=== PATIENT | female | born 1995 | race Caucasian/White ===

== ENCOUNTER 2019-05-24 16:42 | Emergency (ER) | payer BC, SELFPAY ==
--- NOTE | ~2019-05-24 | XR_ITS ---
EXAMINATION: XR chest 1V portable DATE: 05/24/2019 17:16 INDICATION: Dyspnea. TECHNIQUE: A single frontal view of the chest was obtained. COMPARISON: Chest 2 views 07/11/2015, CT abdomen and pelvis 10/24/2018 FINDINGS: The chest demonstrates clear lungs without pneumonia, pleural effusion, or pneumothorax. Th e heart size is normal. IMPRESSION: 1. No acute cardiopulmonary disease. Reviewed, dictated and finalized at location A.
[2019-05-24 16:45] VITALS: BP 103/57; PULSE 93; RESP 18; TEMP 36.4; O2SAT 99
[2019-05-24 16:57] VITALS: PULSE 99
--- NOTE | 2019-05-24 17:00 | ED.GENADULT ---
HPI - General Adult General Chief complaint: Unspecified Stated complaint: LIGHTHEADED/7 MO PREG Time Seen by Provider: 05/24/19 16:58 Source: patient Mode of arrival: ambulatory Limitations: no limitations History of Present Illness HPI narrative: A 24 y/o female pt that is 30 weeks , presents to the ED, with c/o constant dizziness, lightheadedness and near-syncope x 5 days. Pt states that she tried to sit it out at home, but her Sx are not improving. She notes that her Sx are worse in the morning and states that she notices her Sx are exacerbated when passing a bowel movement. Pt states that the peak of her lightheadedness is accompanied with SOB, and notes N/V, but she states that she thinks this is d/t acid reflux. She denies decreased food or liquid intake, CP, and fever. Pt states that her OBGYN is in [place], [place], but she is self-quarantining with her daughter near this facility so she decided to come here. complaint: lightheaded/dizziness Onset (ago): day(s) (5) Exacerbating factors: other (when passing a bowel movement) Associated symptoms: nausea/vomiting (acid reflux), shortness of breath and other (dizziness, near-syncope) Related Data Allergies Allergy/AdvReac Type Severity Reaction Status Date / Time Contrast Media AdvReac Unknown N/V Uncoded 05/24/19 17:05 DIAPHORESIS Review of Systems Review of Systems: All systems reviewed & are unremarkable except as noted in HPI and below Constitutional: Constitutional: Denies fever(s) Cardiovascular: Cardiovascular: Denies chest pain Respiratory: Respiratory: Reports dyspnea (with lightheadedness) Gastrointestinal: Gastrointestinal: Reports nausea, Reports vomiting (acid reflux) and Denies other (decreased food or liquid intake) Neurologic: Reports dizziness and Reports other (lightheadedness, near-syncope) [facility] Past Medical History Medical History (Updated 05/24/19 @ 19:26 by Trenton Oruorke DO) Heart murmur Hx of tonsillitis Neck fracture Von Willebrand disease Surgical History Surgical History (Updated 05/24/19 @ 18:08 by JOSSELYN Torres) History of partial thyroidectomy History of tonsillectomy Hx of cholecystectomy Social History Social History (Updated 05/24/19 @ 18:09 by [facility] Smoking status: Never smoker Gender identity (if verbalized by the patient): Female Exam Narrative: Exam Narrative: APPEARANCE: No acute distress, nontoxic, resting in bed EYES: EOMI HEENT: Normocephalic, atraumatic, nares patent, oral mucosa dry no erythema exudate posterior pharynx RESPIRATORY: No respiratory distress Clear to auscultation bilaterally with no rhonchi wheezing or rales. CARDIOVASCULAR: Regular rate and rhythm without murmurs rubs or gallops. ABDOMINAL: Gravid uterus palpated, nontender to palpation MUSCULOSKELETAl: Moves all extremities. No clubbing, cyanosis or edema. NEURO: Awake and alert x 3. Following commands, speech normal, no focal deficits SKIN:: Warm, dry. No rashes lesions or abrasions PSYCHIATRIC: Normal affect/mood, Course Course Emergency Course: Following liter fluid patient states she is feeling much better. Able to get up and ambulate with no difficulty Discussed with patient results of workup and diagnosis. Discussed need for follow-up with primary care, proper use of medication, and reasons to return to the emergency department. Patient understands and agrees to current treatment plan Vital Signs Vital signs: Vital Signs Temperature 97.5 F L 05/24/19 16:45 Pulse Rate 93 05/24/19 16:45 Respiratory Rate 18 05/24/19 16:45 Blood Pressure 103/57 L 05/24/19 16:45 Pulse Oximetry 99 05/24/19 16:45 Temperature 97.5 F L 05/24/19 16:45 Pulse Rate 96 05/24/19 17:23 Respiratory Rate 18 05/24/19 16:45 Blood Pressure 106/63 05/24/19 17:23 Pulse Oximetry 99 05/24/19 16:45 Medical Decision Making MDM Narrative Medical decision making narrative: Patient's epis
--- NOTE | 2019-05-24 17:04 | ECG_ITS ---
Measurements Intervals [place] Rate: 82 P: 3 CA: 142 QRS: 7 QRSD: 80 T: 24 QT: 346 QTc: 406 Interpretive Statements SINUS RHYTHM MINIMAL Q WAVES- LATERAL LEADS BORDERLINE ECG Electronically Signed On 05-25-2019 7:17:00 CDT by Srini Acosta D.O.
[2019-05-24] MEDS: SODIUM CHLORIDE 0.9% IV 1,000 ML 999 ML IV CONT (17:16)
[2019-05-24 17:20] LABS: Basophils Absolute Auto 0.1 K/mm3 (0.0-0.1); Basophils Percent Auto 0.5 % (0.2-1.2); Eosinophils Absolute Auto 0.2 K/mm3 (0-0.3); Eosinophils Percent Auto 1.4 % (0-4.4); Hematocrit 35.6 % (37.0-47.0); Hemoglobin 11.4 g/dL (12.0-15.0); Immature Granulocyte Absolute 0.25 K/mm3 (0.00-0.031); Immature Granulocyte Percent A 2.3 % (0-0.5); Lymphocytes Absolute Auto 1.71 K/mm3 (0.9-3.2); Lymphocytes Percent Auto 15.5 % (18.3-44.2); Mean Corpuscular Volume 93.7 fl (80-100); Mean Platelet Volume 11.4 fl (7.4-10.4); Monocytes Absolute Auto 1.2 K/mm3 (0.1-0.6); Monocytes Percent Auto 11.2 % (2.6-8.5); Neutrophils Absolute Auto 7.6 K/mm3 (1.3-6.7); Neutrophils Percent Auto 69.1 % (45.5-73.1); Platelet Count Result 217 k/mm3 (150-375); Red Cell Distribution Width 13.1 % (11.5-14.5)
[2019-05-24 17:21] VITALS: BP 104/67; BP 108/70; PULSE 83; PULSE 98
[2019-05-24 17:23] VITALS: BP 106/63; PULSE 96
[2019-05-24 17:31] LABS: Alanine Aminotransferase 22 U/L (4-35); Albumin Level 3.9 g/dL (3.5-5.1); Alkaline Phosphatase 112 U/L (38-126); Aspartate Amino Transferase 24 U/L (14-36); Bilirubin,Total 0.2 mg/dL (0.2-1.3); Blood Urea Nitrogen 8 mg/dL (7-17); Calcium 9.3 mg/dL (8.4-10.2); Carbon Dioxide 22 mmol/L (22-30); Chloride 102 mmol/L (98-107); Estimated CRCL calculation 168 ml/min; Estimated Glomerular Filt Rate > 60; Glucose 79 mg/dL (65-105); Potassium 4.1 mmol/L (3.4-5.0); Sodium 132 mmol/L (137-145)
[2019-05-24 18:00] LABS: Add Urine Microscopic? YES; Appearance Urine Cloudy (Clear); Bacteria Urine 1+ /hpf; Bilirubin Urine Negative (Negative); Blood Urine Negative (Negative); Color Urine Yellow (Yellow); Glucose Urine UA Negative (Negative); Ketones Urine Negative (Negative); Leukocyte Esterase Ur Negative LEU/UL (Negative); Mucus Urine Rare /lpf; Nitrate Urine Negative (Negative); Protein Urine 1+ mg/dL (Negative); RBC Urine 0-2 /hpf (0-2); Specific Grav Ur 1.015 (1.001-1.035); Squamous Epithelial Cell Urine Few /hpf (Few); Urobilinogen Urine Negative mg/dL (<2.0)
[2019-05-24] MEDS: CEPHALEXIN 500 MG CAPSULE PO (19:37)
== END 2019-05-24 19:38 | disposition home or self-care (01) ==
PROVIDERS: Emergency Provider Emergency Medicine; PCP Family Medicine
DX: O23.43 Unspecified infection of urinary tract in pregnancy, third trimester (principal); Z3A.30 30 weeks gestation of pregnancy; O26.893 Other specified pregnancy related conditions, third trimester; R42 Dizziness and giddiness; O99.283 Endocrine, nutritional and metabolic diseases complicating pregnancy, third trimester; E89.0 Postprocedural hypothyroidism; R94.31 Abnormal electrocardiogram [ECG] [EKG]; O99.113 Other diseases of the blood and blood-forming organs and certain disorders involving the immune mechanism complicating pregnancy, third trimester; D68.0 Von Willebrand disease
CPT/HCPCS: 36415; 71045; 80053; 81001; 85025; 93005; 96360; 96361; 99283; A9270; J7030

== ENCOUNTER 2019-07-15 20:18 | Inpatient (IN) | payer BC, SELFPAY ==
[2019-07-15] VITALS (13 sets, daily range): BP systolic 98–136; BP diastolic 55–87; PULSE 72–103
[2019-07-15 22:24] LABS: Basophils Absolute Auto 0.1 K/mm3 (0.0-0.1); Basophils Percent Auto 0.6 % (0.2-1.2); Eosinophils Absolute Auto 0.2 K/mm3 (0-0.3); Eosinophils Percent Auto 1.7 % (0-4.4); Hematocrit 37.5 % (37.0-47.0); Hemoglobin 12.2 g/dL (12.0-15.0); Immature Granulocyte Absolute 0.33 K/mm3 (0.00-0.031); Immature Granulocyte Percent A 2.7 % (0-0.5); Lymphocytes Absolute Auto 2.84 K/mm3 (0.9-3.2); Lymphocytes Percent Auto 23.2 % (18.3-44.2); Mean Corpuscular HGB Conc 32.5 g/dl (32-36); Mean Corpuscular Hemoglobin 28.8 pg (26-34); Mean Corpuscular Volume 88.4 fl (80-100); Mean Platelet Volume 12.3 fl (7.4-10.4); Monocytes Absolute Auto 1.1 K/mm3 (0.1-0.6); Neutrophils Absolute Auto 7.7 K/mm3 (1.3-6.7); Neutrophils Percent Auto 62.8 % (45.5-73.1); Platelet Count Result 222 k/mm3 (150-375); Red Blood Count 4.24 M/mm3 (4.2-5.4); Red Cell Distribution Width 13.2 % (11.5-14.5); White Blood Count 12.3 K/mm3 (4.5-10.0)
[2019-07-15] MEDS: FAMOTIDINE 20 MG/2 ML VIAL IV PUSH (22:53)
[2019-07-15 23:17] LABS: HIV 1/2 Ab P24 Ag Result Negative (Negative)
[2019-07-15 23:23] LABS: Hepatitis B Surface Antigen Negative (Negative)
[2019-07-15 23:26] LABS: Rubella IgG Antibody 16.5 IU/ML
[2019-07-15 23:33] LABS: Amphetamine Screen Urine Negative (Negative); Barbiturate Screen Urine Negative (Negative); Benzodiazepines Screen Urine Negative (Negative); Cannabinoid Screen Urine Negative (Negative); Cocaine Screen Urine Negative (Negative); Methadone Screen Urine Negative (Negative); Opiate Screen Urine Negative (Negative); Phencyclidine Screen Urine Negative (Negative)
[2019-07-16] VITALS (60 sets, daily range): BP systolic 76–144; BP diastolic 48–106; PULSE 55–106; RESP 16–18; TEMP 36.2–36.9; O2SAT 98–100; BMI 26.9
--- NOTE | 2019-07-16 01:34 | LDADM ---
This patient, Leah Antunez, was admitted to Labor/Delivery/Recovery 109 on 07/15/19 at 20:18. Plans for labor, pain management and were discussed with patient. Patient/family oriented to hospital policies and general routines including ID bracelet, bed and alarms, visiting hours, pain management, procedures, bathroom and other care routines, personal items, smoking policy, room service/diet and guest tray routines, security routines, and visiting hours. Patient/Family are encouraged to report perceived risks to care and to ask questions if they do not understand what they are told or what they should do. See OBIX for further documentation.
[2019-07-16 06:43] LABS: Rapid Plasma Reagin Non-Reactive (NonReactive)
--- NOTE | 2019-07-16 10:55 | WPDANESEPP ---
Anes - Eval Pre Procedure Procedure: Labor epidural Date/Time: 07/16/19 10:55 Surgeon: Lanre Sanchez M.D. Preop Diagnosis: pain during labor Pre Op Diagnosis: Leaking Patient Data Age: 24 Gender: F Height: 1.68 m Weight: 75.75 kg Last Vital Signs Temp 36.2 C L 07/16/19 09:25 Pulse 74 07/16/19 10:01 BP 118/84 07/16/19 10:15 Allergies Allergy/AdvReac Type Severity Reaction Status Date / Time Contrast Media AdvReac Unknown N/V Uncoded 05/24/19 17:05 DIAPHORESIS Home Medications Medication Instructions Recorded Confirmed Type cephalexin [Keflex] 500 mg PO TID #21 cap 05/24/19 Rx Laboratory Tests 07/15/19 07/15/19 07/15/19 22:10 22:10 22:10 WBC 12.3 K/mm3 H K/mm3 (4.5-10.0) RBC 4.24 M/mm3 M/mm3 (4.2-5.4) Hgb 12.2 g/dL g/dL (12.0-15.0) Hct 37.5 % % (37.0-47.0) MCV 88.4 fl fl (80-100) MCH 28.8 pg pg (26-34) MCHC 32.5 g/dl g/dl (32-36) RDW 13.2 % % (11.5-14.5) Plt Count 222 k/mm3 k/mm3 (150-375) MPV 12.3 fl H fl (7.4-10.4) Immature Gran % (Auto) 2.7 % H % (0-0.5) Neut % (Auto) 62.8 % % (45.5-73.1) Lymph % (Auto) 23.2 % % (18.3-44.2) [place] % (Auto) 9.0 % H % (2.6-8.5) Eos % (Auto) 1.7 % % (0-4.4) Baso % (Auto) 0.6 % % (0.2-1.2) Lymph # (Auto) 2.84 K/mm3 K/mm3 (0.9-3.2) [place] # (Auto) 1.1 K/mm3 H K/mm3 (0.1-0.6) Eos # (Auto) 0.2 K/mm3 K/mm3 (0-0.3) Baso # (Auto) 0.1 K/mm3 K/mm3 (0.0-0.1) Abs Immat Gran (auto) 0.33 K/mm3 H K/mm3 (0.00-0.031) Absolute Neuts (auto) 7.7 K/mm3 H K/mm3 (1.3-6.7) Absolute Nucleated RBC 0.0 K/mm3 K/mm3 (0.0-0.012) Nucleated RBC % 0.0 % % (0.0-0.2) Urine Opiates Screen Urine Methadone Screen Ur Barbiturates Screen Ur Phencyclidine Scrn Ur Amphetamine Screen U Benzodiazepines Scrn Urine Cocaine Screen U Cannabinoids Screen RPR Hep Bs Antigen HIV 1&2 Ab/P24 Ag 4thGn Negative (Negative) Rubella IgG Antibody 16.5 IU/ML IU/ML (10 - ) Blood Type Antibody Screen 07/15/19 07/15/19 07/15/19 22:10 22:10 22:10 WBC RBC Hgb Hct MCV MCH MCHC RDW Plt Count MPV Immature Gran % (Auto) Neut % (Auto) Lymph % (Auto) [place] % (Auto) Eos % (Auto) Baso % (Auto) Lymph # (Auto) [place] # (Auto) Eos # (Auto) Baso # (Auto) Abs Immat Gran (auto) Absolute Neuts (auto) Absolute Nucleated RBC Nucleated RBC % Urine Opiates Screen Urine Methadone Screen Ur Barbiturates Screen Ur Phencyclidine Scrn Ur Amphetamine Screen U Benzodiazepines Scrn Urine Cocaine Screen U Cannabinoids Screen RPR Non-reactive (NonReactive) Hep Bs Antigen Negative (Negative) HIV 1&2 Ab/P24 Ag 4thGn Rubella IgG Antibody Blood Type O Positive Antibody Screen Negative 07/15/19 22:52 WBC RBC Hgb Hct MCV MCH MCHC RDW Plt Count MPV Immature Gran % (Auto) Neut % (Auto) Lymph % (Auto) [place] % (Auto) Eos % (Auto) Baso % (Auto) Lymph # (Auto) [place] # (Auto) Eos # (Auto) Baso # (Auto) Abs Immat Gran (auto) Absolute Neuts (auto) Absolute Nucleated RBC Nucleated RBC %
[2019-07-16] MEDS: IBUPROFEN 600 MG TABLET PO ×2 (11:15→19:53)
[2019-07-16] MEDS: OXYTOCIN 30 UNITS/NS 500 ML 30 UNITS/500 ML BAG 125 UNITS IV CONT (12:00)
--- NOTE | 2019-07-16 14:18 | PC.NURSE ---
Patient transferred to post room #278 via wheelchair. Support person present. Oriented to unit, room, information board, rooming in, admission packet and security measures. Patient verbalizes understanding.
--- NOTE | 2019-07-16 15:13 | PM.IMHP ---
H&P: HPI History of Present Illness Chief complaint: Leaking Narrative: Leah Antunez is a 24 year old female at 37 6/7 weeks by LMP 10/23/18 with an EDC 07/30/19- record stated confirmed by early ultrasound. She presented to [facility] after having leaking of clear fluid at 1999. Cervix 2/80%, irregular contractions. She has her primary care with [facility]. She did not want to deliver at that practice's hospital. course significant for her having a history of a heart defect. She had a echo and they recommend no further evaluation during . Recommend evaluation several months after delivery. History of depression. There is a questionable history of Von Willebrands as a child but states later test show negative. No history of hemorrhage. Labs reviewed. GBS negative. Review of Systems Review of Systems: All systems reviewed & are unremarkable except as noted in HPI and below Constitutional: Constitutional: Reports no additional constitutional complaints and Denies headache(s) Eyes: Eyes: Denies spots in vision ENT: Reports system reviewed and no additional complaints, except as documented and Denies headache(s) Cardiovascular: Cardiovascular: Denies chest pain and Denies dyspnea Respiratory: Respiratory: Denies dyspnea Gastrointestinal: Gastrointestinal: Reports no additional gastrointestinal complaints Genitourinary: Genitourinary: Reports amenorrhea Musculoskeletal: Musculoskeletal: Reports no additional musculoskeletal complaints Neurologic: Denies headache(s) [facility] Past Medical History Medical History Heart murmur Hx of tonsillitis Neck fracture Von Willebrand disease Surgical History Surgical History History of partial thyroidectomy History of tonsillectomy Hx of cholecystectomy Family History Family History Grandparent Lung cancer Mother Breast cancer Other Uterine cancer Grandparent Dementia Social History Social History Smoking status: Never smoker Second hand tobacco smoke exposure: No Substance use: never Gender identity (if verbalized by the patient): Female Spiritual care concerns: No Meds Home Medications and Allergies Home Medications Medication Instructions Recorded Confirmed Type cephalexin [Keflex] 500 mg PO TID #21 cap 05/24/19 Rx Allergies Allergy/AdvReac Type Severity Reaction Status Date / Time Contrast Media AdvReac Unknown N/V Uncoded 05/24/19 17:05 DIAPHORESIS Vital Signs Vital Signs - 24 hr 07/15/19 20:50 07/15/19 21:00 07/15/19 21:15 Temperature Pulse Rate 90 85 78 Respiratory Rate Blood Pressure 131/75 123/79 127/77 Pulse Oximetry 07/15/19 21:30 07/15/19 21:45 07/15/19 22:15 Temperature Pulse Rate 92 91 88 Respiratory Rate Blood Pressure 128/76 127/79 130/72 Pulse Oximetry 07/15/19 22:30 07/15/19 22:46 07/15/19 23:00 Temperature Pulse Rate 92 90 103 H Respiratory Rate Blood Pressure 136/87 104/60 119/69 Pulse Oximetry 07/15/19 23:14 07/15/19 23:16 07/15/19 23:30 Temperature Pulse Rate 82 96 80 Respiratory Rate Blood Pressure 116/77 117/75 119/72 Pulse Oximetry 07/15/19 23:47 07/16/19 00:00 07/16/19 00:22 Temperature Pulse Rate 72 83 89 Respiratory Rate Blood Pressure 98/55 L 117/79 123/78 Pulse Oximetry 07/16/19 00:31 07/16/19 00:45 07/16/19 01:19 Temperature 98.2 F Pulse Rate 91 86 81 Respiratory Rate Blood Pressure 117/95 H 144/105 H 114/67 Pulse Oximetry 07/16/19 01:30 07/16/19 01:45 07/16/19 02:00 Temperature Pulse Rate 71 82 76 Respiratory Rate Blood Pressure 105/70 115/71 118/68 Pulse Oximetry 07/16/19 02:16 07/16/19 02:30 07/16/19 02:45 Temperature Puls
--- NOTE | 2019-07-16 15:56 | PM.OBPNVD ---
OB - PN: Subj Subjective Date/time seen: 07/16/19 15:56 Patient seen at approximately 0830. tracing Cat 1. Irregular ctx. Cervix , forebag palpated and ruptured. Continue expectant management. OB - PN: Obj Data Labs CBC & Chem 7: 07/15/19 22:10 Labs: Laboratory Results - last 24 hr 07/15/19 07/15/19 07/15/19 22:10 22:10 22:10 WBC 12.3 H RBC 4.24 Hgb 12.2 Hct 37.5 MCV 88.4 MCH 28.8 MCHC 32.5 RDW 13.2 Plt Count 222 MPV 12.3 H Immature Gran % (Auto) 2.7 H Neut % (Auto) 62.8 Lymph % (Auto) 23.2 [place] % (Auto) 9.0 H Eos % (Auto) 1.7 Baso % (Auto) 0.6 Lymph # (Auto) 2.84 [place] # (Auto) 1.1 H Eos # (Auto) 0.2 Baso # (Auto) 0.1 Abs Immat Gran (auto) 0.33 H Absolute Neuts (auto) 7.7 H Absolute Nucleated RBC 0.0 Nucleated RBC % 0.0 Urine Opiates Screen Urine Methadone Screen Ur Barbiturates Screen Ur Phencyclidine Scrn Ur Amphetamine Screen U Benzodiazepines Scrn Urine Cocaine Screen U Cannabinoids Screen RPR Hep Bs Antigen HIV 1&2 Ab/P24 Ag 4thGn Negative Rubella IgG Antibody 16.5 Blood Type Antibody Screen 07/15/19 07/15/19 07/15/19 22:10 22:10 22:10 WBC RBC Hgb Hct MCV MCH MCHC RDW Plt Count MPV Immature Gran % (Auto) Neut % (Auto) Lymph % (Auto) [place] % (Auto) Eos % (Auto) Baso % (Auto) Lymph # (Auto) [place] # (Auto) Eos # (Auto) Baso # (Auto) Abs Immat Gran (auto) Absolute Neuts (auto) Absolute Nucleated RBC Nucleated RBC % Urine Opiates Screen Urine Methadone Screen Ur Barbiturates Screen Ur Phencyclidine Scrn Ur Amphetamine Screen U Benzodiazepines Scrn Urine Cocaine Screen U Cannabinoids Screen RPR Non-reactive Hep Bs Antigen Negative HIV 1&2 Ab/P24 Ag 4thGn Rubella IgG Antibody Blood Type O Positive Antibody Screen Negative 07/15/19 22:52 WBC RBC Hgb Hct MCV MCH MCHC RDW Plt Count MPV Immature Gran % (Auto) Neut % (Auto) Lymph % (Auto) [place] % (Auto) Eos % (Auto) Baso % (Auto) Lymph # (Auto) [place] # (Auto) Eos # (Auto) Baso # (Auto) Abs Immat Gran (auto) Absolute Neuts (auto) Absolute Nucleated RBC Nucleated RBC % Urine Opiates Screen Negative Urine Methadone Screen Negative Ur Barbiturates Screen Negative Ur Phencyclidine Scrn Negative Ur Amphetamine Screen Negative U Benzodiazepines Scrn Negative Urine Cocaine Screen Negative U Cannabinoids Screen Negative RPR Hep Bs Antigen HIV 1&2 Ab/P24 Ag 4thGn Rubella IgG Antibody Blood Type Antibody Screen OB - PN A/P Time Spent With Patient Time: Total time spent is greater than 50% in coordination of care (as documented) at patient's floor/unit and/or counseling patient:
--- NOTE | 2019-07-16 15:58 | PM.OBPRVD ---
OB - Delivery Note Procedure Delivery date: 07/16/19 Procedure: Spontaneous vaginal delivery Intrapartal events: None Induction method: none Delivery augmentation: rupture of membranes (forebag ruptured) Delivery monitor: external FHT Route of delivery: Laceration description: None Specimen: No Estimated blood loss (mL): 150 Disposition: floor Complications: None Narrative: Patient admitted on evening of 07/14 with confirmed spontaneous rupture of membranes. She opted to walk and intermittent monitoring. At 0640 she was 5 cm. Irregular contractions. She had exam at approximately 0830, forebag palpated and ruptured- large amount of clear fluid. Cervix 6/90/0. She progressed to complete. She pushed twice and delivered a male infant over an intact perineum. Infant was vigorously crying upon delivery and placed on maternal abdomen. Cord clamped and cut after apulsative at 30 seconds after delivery. Cord blood obtained for gases and cord blood. Placenta delivered spontaneous and intact. EBL 150cc. Patient tolerated procedure well. [place] Baby Date of : 07/16/19 Time of : 10:57 Weeks of gestation at delivery: 38 Infant gender: Male Weight (pounds): 6 Weight (ounces): 14 presentation: vertex position: Right Occiput Anterior Placenta delivery description: Spontaneous cord vessel description: Clamped/Cut score one minute: 9 score five minutes: 9
[2019-07-16] MEDS: LANOLIN (LANSINOH) 7.5 GM CREAM 1 APPLIC TOPICAL (16:04)
[2019-07-16] MEDS: DOCUSATE SODIUM 100 MG CAPSULE PO (16:04)
[2019-07-16] MEDS: ACETAMINOPHEN 325 MG TABLET 650 MG PO (19:52)
[2019-07-17] MEDS: ACETAMINOPHEN 325 MG TABLET 650 MG PO ×3 (02:08→16:53)
[2019-07-17] MEDS: IBUPROFEN 600 MG TABLET PO ×4 (02:09→23:13)
[2019-07-17] MEDS: SIMETHICONE 80 MG TAB.CHEW PO (05:00)
[2019-07-17 05:32] LABS: Hematocrit 29.3 % (37.0-47.0); Hemoglobin 9.4 g/dL (12.0-15.0)
[2019-07-17] MEDS: POLYSACCHARIDE IRON COMPLEX 150 MG CAPSULE PO ×2 (07:25→16:53)
[2019-07-17] MEDS: DOCUSATE SODIUM 100 MG CAPSULE PO ×2 (07:25→16:53)
[2019-07-17] MEDS: MULTIVIT/MIN/PREN/FOL AC/IRON TABLET 1 TAB PO (07:25)
[2019-07-17 07:35] VITALS: BP 103/68; PULSE 71; RESP 18; TEMP 36.4; O2SAT 99
--- NOTE | 2019-07-17 09:14 | PM.OBPNVD ---
OB - PN: Subj Subjective Date/time seen: 07/17/19 09:14 Patient comments: pain well controlled, tolerating diet and other (Decreasing lochia.) baby status: doing well and nursing well [place] feeding status: exclusively breast feeding OB - PN: Obj Data Labs CBC & Chem 7: 07/17/19 05:10 Labs: Laboratory Results - last 24 hr 07/17/19 05:10 Hgb 9.4 L Hct 29.3 L OB - PN A/P Plan day: 1 Plan: routine care Comments: Patient doing well. Asymptomatic anemia. Routine care. Time Spent With Patient Time: Total time spent is greater than 50% in coordination of care (as documented) at patient's floor/unit and/or counseling patient: Exam Psych: Affect: normal affect Other: Abd: fundus firm below umbilicus, nontender Perineum: healing Ext: nontender
--- NOTE | 2019-07-17 15:55 | PC.NURSE ---
Mother called out for assist with feeding. Reviewed feeding cues, frequencies, duration of feedings, feeding elimination flow sheet, and signs of adequate intake. Demonstrated stimulation techniques to wake infant for feeding. Assisted with to breast. Reviewed positioning/alignment in cross cradle, holding breast in U hold and guided asymmetrical latch on. Discussed rational for each. Infant was able to latch correctly. nursed eagerly, with steady draws and frequent swallowing noted. Reviewed signs of a correct latch, effective nursing and suck swallow ratio. Infant was able to maintain latch without discomfort to mother. Nipple care reviewed. Mother switched to cradle, was able to maintain deep latch. Discussed how holding breast assist with maintaining deep latch. Advised to stimulate to keep awake and nursing effectively for increased stimulation and intake. Instructed mother to call out for RN assistance if she is unable to latch infant for feeding or she has discomfort with nursing. Instructed feeding should be initiated three hours from start of last feeding or if feeding cues are noted before. Mother voiced understanding of information shared.
[2019-07-17 20:00] VITALS: BP 117/66; PULSE 84; RESP 18; TEMP 36.8; O2SAT 100
--- NOTE | 2019-07-17 21:33 | PC.NURSE ---
Patient called out for pain medication for cramping but its too early for pain medication, I offered her a heating pad and she said yes she would like to have one. Heating pad given.
[2019-07-18] MEDS: ACETAMINOPHEN 325 MG TABLET 650 MG PO (01:15)
[2019-07-18] MEDS: IBUPROFEN 600 MG TABLET PO (07:59)
[2019-07-18] MEDS: DOCUSATE SODIUM 100 MG CAPSULE PO (07:59)
[2019-07-18 08:00] VITALS: BP 104/60; PULSE 79; RESP 18; TEMP 36.6
[2019-07-18] MEDS: POLYSACCHARIDE IRON COMPLEX 150 MG CAPSULE PO (08:00)
[2019-07-18] MEDS: MULTIVIT/MIN/PREN/FOL AC/IRON TABLET 1 TAB PO (08:00)
--- NOTE | 2019-07-18 10:35 | P.PNOB_ITS ---
OB - PN: Subj Subjective Date/time seen: 07/18/19 10:35 Patient comments: pain well controlled, tolerating diet and other (Decreasing lochia.) baby status: doing well and nursing well [place] feeding status: exclusively breast feeding OB - PN: Obj Data Labs CBC & Chem 7: 07/17/19 05:10 OB - PN A/P Plan day: 2 Plan: discharge home and other Comments: Patient doing well. Follow up 4-6 weeks. Discharge instructions provided. Time Spent With Patient Time: Total time spent is greater than 50% in coordination of care (as documented) at patient's floor/unit and/or counseling patient: Time with patient: less than 15 minutes Exam Psych: Affect: normal affect Other: Abd: fundus firm below umbilicus, nontender Perineum: healing Ext: nontender
--- NOTE | 2019-07-18 11:05 | PC.NURSE ---
Patient was given the opportunity to view the discharge video Mother & Baby Care, The First Two Weeks and to ask questions. Patient declined viewing the video and has been given the mother/baby guide for home reference.
--- NOTE | 2019-07-31 12:51 | PM.OBDSVD ---
DS: Admitting Diagnosis Admitting Diagnosis Admitting Diagnosis: Encounter for supervision of normal , unspecified, third trimester DS: Discharge Diagnosis Discharge Diagnosis (1) Labor without complication: Code(s): O80 - Encounter for full-term uncomplicated delivery Status: Acute OB - DS: Summary OB Procedures : None OB Procedures Intrapartum: Spontaneous Vag Delivery OB Procedures: : None Time Spent with Patient Time attestation: Total time spent providing and/or coordinating discharge services: Exam Psych: Affect: normal affect Other: Abd: fundus firm below umbilicus, nontender Perineum: healing Ext: nontender Discharge Plan Discharge Attending physician on discharge: Lanre Sanchez Discharging Clinician: Lanre Sanchez Anticipated Discharge Date/Time: 07/18/19 10:37 Patient Disposition: Home, Self-Care Activity: may shower and pelvic rest Diet: regular Discharge Instructions: Routine instructions. Pelvic rest for 4-6 weeks. Call OB for temperature >100.4, saturating more than a pad an hour, leg pain and redness. May take over the counter Ibuprofen and Motrin for pain. Take a daily vitamin. Take a daily iron supplement. Over the counter SloFe once a day. Education: Mom and Baby Guide and Preeclampsia Handout Given to: Mother Follow-Up: Call your delivering provider's office for an appointment to be seen in: 4-6 weeks Mom and baby should come to the [facility] for the follow-up appointment. Appointment Date/Time: July 20, 2019 at 9:00 am What to expect at your follow-up visit: Physical Assessment Call [phone] if you are unable to keep your appointment time. BREAST CARE: 1. Wear a snug supportive bra. 2. For engorgement discomfort: Breast Feeding: A. Apply warm moist washcloths B. Express milk as needed to relieve engorgement C. Wear loose clothing 3. For sore nipples: A. Identify correct latch-on B. Apply warm moist washcloths before and after nursing C. Air dry nipples after nursing D. May apply Lansinoh cream to nipples EPISIOTOMY/PERINEAL CARE: 1. Until bleeding stops, use your carlos eduardo bottle after urinating 2. Change your pad frequently throughout the day 3. You may take sitz baths several times a day (fill your bathtub with warm water and soak for 20 minutes.) Do NOT bathe in the water 4. No tub baths until seen by your physician - You may shower ACTIVITY: 1. Rest as much as possible. 2. Do not exercise or lift anything heavier than your baby (such as laundry or other children.) 3. Avoid stairs or driving as much as possible. 4. Do not put anything into the vagina. No douching, tampons, or sexual activity until seen by physician. NOTIFY PHYSICIAN IF YOU HAVE ANY QUESTIONS OR IF ANY OF THE FOLLOWING SYMPTOMS OCCUR: 1. If your vaginal bleeding becomes foul smelling. 2. If your vaginal bleeding becomes more heavy than a period or if your bleeding changes from pink to bright red. However, you may pass an occasional walnut-sized clot once or twice for the first week . 3. If you experience a sharp, shooting pain in you calves. 4. If you discover a hard, reddened area on your breast or if you experience flu-like symptoms. DIET: 1. Eat regular, well-balanced meals. 2. Drink plenty of fluids daily. If , drink to thirst. Stand Alone Forms: General Discharge Information Follow-up/Referrals: Lanre Sanchez MD [Physician] - (She should call her primary OB and schedule her visit.) Discharge Medications: Discontinued cephalexin [Keflex] 500 mg capsule 500 mg PO TID Qty: 21 RF: 0 Date of admission: 07/15/19 20:18 Primary Care Provider: Demi Castañeda Admitting Provider: Lanre Sanchez Discharge Date/Time: 07/18/19 11:36 Attending physician on admissi
== END 2019-07-18 11:36 | disposition home or self-care (01) | DRG 560 ==
LOC: ANHLDR 22:42 → ANHOB2 07-16 14:29
PROVIDERS: Admitting Provider Obstetrics & Gynecology; PCP Family Medicine; Visit Provider Obstetrics & Gynecology
DX: O80 Encounter for full-term uncomplicated delivery (principal); Z3A.38 38 weeks gestation of pregnancy; Z37.0 Single live birth; Z86.79 Personal history of other diseases of the circulatory system
CPT/HCPCS: 36415; 80307; 85014; 85018; 85025; 86592; 86703; 86762; 86850; 86900; 86901; 87340; A9270; G0432; J2590; J3010

== ENCOUNTER 2020-01-05 22:48 | Emergency (ER) | payer BC, SELFPAY ==
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
[2020-01-05 23:20] VITALS: BP 111/74; PULSE 68; RESP 18; TEMP 36.2; O2SAT 99
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
[2020-01-06] MEDS: IBUPROFEN 600 MG TABLET PO (00:32)
--- NOTE | 2020-01-06 00:34 | PC.NURSE ---
C Collar removed per EDP.
[2020-01-06 00:47] VITALS: BP 114/76; PULSE 100; RESP 17; O2SAT 100
== END 2020-01-06 01:17 | disposition home or self-care (01) ==
PROVIDERS: Emergency Provider Emergency Medicine; PCP Family Medicine
DX: S16.1XXA Strain of muscle, fascia and tendon at neck level, initial encounter (principal); V44.5XXA Car driver injured in collision with heavy transport vehicle or bus in traffic accident, initial encounter
CPT/HCPCS: 71046; 72125; 99284; A9270

== ENCOUNTER 2021-05-06 13:03 | Emergency (ER) | payer BC, SELFPAY ==
--- NOTE | ~2021-05-06 | CT_ITS ---
EXAMINATION: CT abdomen pelvis wo con DATE: 05/06/2021 14:13 INDICATION: Low abdominal pain. TECHNIQUE: Computed tomography (CT) of the abdomen and pelvis was performed without intravenous contr ast. Automated exposure control and iterative reconstruction technique were employed. The dose-length product was 403.13 mGy-cm. COMPARISON: CT abdomen and pelvis 10/24/2018 FINDINGS: The visualized portions of the lung bases are clear without pneumonia or pleural effusion. The heart size is normal. No pericardial effusion. There is a moderate-sized sliding hiatal hernia. T he liver and gallbladder are normal. There are changes of cholecystectomy. The pancreas, adrenal glan ds, and kidneys are normal. There is no urolithiasis. There are no dilated loops of bowel. The append ix is normal. There are no pathologically enlarged lymph nodes. There is no free intraperitoneal flui d. There is mild chronic anterior wedging of T10 and T11 vertebral bodies, likely physiologic. IMPRESSION: 1. Moderate-sized sliding hiatal hernia. Reviewed, dictated and finalized at location [facility]. 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
[2021-05-06 13:06] VITALS: BP 118/66; PULSE 82; RESP 17; TEMP 36.6; O2SAT 99
[2021-05-06 13:22] LABS: Basophils Absolute Auto 0.1 K/mm3 (0.0-0.1); Basophils Percent Auto 0.6 % (0.2-1.2); Eosinophils Absolute Auto 0.1 K/mm3 (0-0.3); Eosinophils Percent Auto 1.2 % (0-4.4); Hematocrit 45.7 % (37.0-47.0); Hemoglobin 14.4 g/dL (12.0-15.0); Immature Granulocyte Absolute 0.03 K/mm3 (0.00-0.031); Immature Granulocyte Percent A 0.4 % (0-0.5); Lymphocytes Absolute Auto 2.05 K/mm3 (0.9-3.2); Lymphocytes Percent Auto 26.2 % (18.3-44.2); Mean Corpuscular HGB Conc 31.5 g/dl (32-36); Mean Corpuscular Hemoglobin 29.5 pg (26-34); Mean Corpuscular Volume 93.6 fl (80-100); Mean Platelet Volume 10.2 fl (7.4-10.4); Monocytes Absolute Auto 0.6 K/mm3 (0.1-0.6); Monocytes Percent Auto 7.5 % (2.6-8.5); Neutrophils Percent Auto 64.1 % (45.5-73.1); Platelet Count Result 377 k/mm3 (150-375); Red Blood Count 4.88 M/mm3 (4.2-5.4); Red Cell Distribution Width 13.8 % (11.5-14.5); White Blood Count 7.8 K/mm3 (4.5-10.0)
--- NOTE | 2021-05-06 13:23 | ED.ABDPAIN ---
HPI - Abdominal Pain General Chief Complaint: Abdominal Pain Stated Complaint: abdominal pain Time Seen by Provider: 05/06/21 13:21 Related Data Allergies Allergy/AdvReac Type Severity Reaction Status Date / Time Contrast Media AdvReac Unknown N/V Uncoded 05/06/21 13:15 DIAPHORESIS PMFSH Past Medical History Medical History Heart murmur Hx of tonsillitis Labor without complication Neck fracture Spontaneous rupture of membranes Von Willebrand disease Surgical History Surgical History (System 02/23/21 @ 08:58 by Yecenia Gould) History of partial thyroidectomy History of tonsillectomy Hx of cholecystectomy Family History Family History (System 02/23/21 @ 08:58 by Yecenia Gould) Grandparent Lung cancer Mother Breast cancer Other Uterine cancer Grandparent Dementia Social History Social History (System 02/23/21 @ 08:58 by Yecenia Gould) Smoking status: Never smoker Second hand tobacco smoke exposure: No Substance use: never Gender identity (if verbalized by the patient): Female Spiritual care concerns: No Course Vital Signs Vital signs: Vital Signs Temperature 36.6 C 05/06/21 13:06 Pulse Rate 82 05/06/21 13:06 Respiratory Rate 17 05/06/21 13:06 Blood Pressure 118/66 05/06/21 13:06 Pulse Oximetry 99 05/06/21 13:06 Temperature 36.6 C 05/06/21 13:06 Pulse Rate 82 05/06/21 13:06 Respiratory Rate 17 05/06/21 13:06 Blood Pressure 118/66 05/06/21 13:06 Pulse Oximetry 99 05/06/21 13:06 MDM - Abdominal Pain Lab Data Result diagrams: 05/06/21 13:16 05/06/21 13:16 Labs: Lab Results 05/06/21 05/06/21 05/06/21 Range/Units 13:16 13:16 13:16 WBC Pending RBC Pending Hgb Pending Hct Pending MCV Pending MCH Pending MCHC Pending RDW Pending Plt Count Pending MPV Pending Immature Gran % (Auto) Pending Neut % (Auto) Pending Lymph % (Auto) Pending [place] % (Auto) Pending Eos % (Auto) Pending Baso % (Auto) Pending Lymph # (Auto) Pending [place] # (Auto) Pending Eos # (Auto) Pending Baso # (Auto) Pending Abs Immat Gran (auto) Pending Absolute Neuts (auto) Pending Absolute Nucleated RBC Pending Nucleated RBC % Pending Sodium Pending Potassium Pending Chloride Pending Carbon Dioxide Pending Anion Gap Pending BUN Pending Creatinine Pending Estim Creat Clear Calc Pending Estimated GFR Pending Glucose Pending Calcium Pending Total Bilirubin Pending AST Pending ALT Pending Alkaline Phosphatase Pending Total Protein Pending Albumin Pending Lipase Pending Urine Color Pending Urine Appearance Pending Urine pH Pending Ur Specific [place] Pending Urine Protein Pending Urine Glucose (UA) Pending Urine Ketones Pending Ur Blood (Man) Pending Urine Nitrate Pending Urine Bilirubin Pending Urine Urobilinogen Pending Leukocyte Esterase Rfl Pending UCG Bedside Result Negative Reference Range: Negative Discharge Plan Discharge Prescriptions: No Action ibuprofen [IBU] 600 mg tablet 600 mg PO Q6H PRN (Reason: pain) Qty: 20 RF: 0
[2021-05-06 13:27] LABS: Add Urine Microscopic? YES; Appearance Urine Cloudy (Clear); Bilirubin Urine Negative (Negative); Blood Urine Negative (Negative); Color Urine Yellow (Yellow); Glucose Urine UA Negative (Negative); Ketones Urine Negative (Negative); Leukocyte Esterase Ur Negative LEU/UL (Negative); Mucus Urine Rare /lpf; Nitrate Urine Negative (Negative); Protein Urine Negative (Negative); RBC Urine 0-2 /hpf (0-2); Squamous Epithelial Cell Urine Few /hpf (Few); Urobilinogen Urine Negative mg/dL (<2.0); WBC Urine 0-3 /hpf
[2021-05-06 13:34] LABS: Alanine Aminotransferase 19 U/L (4-35); Alkaline Phosphatase 48 U/L (38-126); Anion Gap 9 mmol/L (8-16); Aspartate Amino Transferase 31 U/L (14-36); Bilirubin,Total 0.6 mg/dL (0.2-1.3); Blood Urea Nitrogen 9 mg/dL (7-17); Calcium 9.3 mg/dL (8.4-10.2); Carbon Dioxide 28 mmol/L (22-30); Chloride 103 mmol/L (98-107); Estimated CRCL calculation 100 ml/min; Estimated Glomerular Filt Rate > 60; Glucose 105 mg/dL (65-110); Lipase 45 U/L (23-300); Potassium 4.1 mmol/L (3.4-5.0); Sodium 140 mmol/L (137-145)
[2021-05-06] MEDS: SODIUM CHLORIDE 0.9% IV 1,000 ML 999 ML IV CONT (13:47)
--- NOTE | 2021-05-06 14:33 | ED.ABDPAIN ---
HPI - Abdominal Pain General Chief Complaint: Abdominal Pain Stated Complaint: abdominal pain Time Seen by Provider: 05/06/21 13:21 Source: patient Mode of arrival: ambulatory Limitations: no limitations History of Present Illness HPI narrative: Patient is 26 years old white female drove herself to the emergency room complaining of bilateral lower abdominal sharp stabbing pain that started 1 month ago, got worse over the last 1 and half week. Pain increases with menstrual cycle and sexual intercourse. Patient denies any fever, chills, nausea, vomiting. History of cholecystectomy. Patient reports thick white-yellowish vaginal discharge lately. Patient reports bloating and severe pelvic pain few minutes after vaginal intercourse. Last menstrual cycle 5 days ago. Patient is 3 para 2 1. Patient does not smoke or drink or uses drugs. Related Data Allergies Allergy/AdvReac Type Severity Reaction Status Date / Time Contrast Media AdvReac Unknown N/V Uncoded 05/06/21 13:15 DIAPHORESIS Review of Systems Review of Systems: CONSTITUTIONAL: Denies fever, chills, or sweats. EYES: Denies visual changes, redness, or discharge. ENT: Denies rhinorrhea, congestion, sore throat, or otalgia. CARDIOVASCULAR: Denies chest pain, palpitations, or edema. RESPIRATORY: Denies cough or dyspnea. GASTROINTESTINAL: Denies abdominal pain, nausea, vomiting, or diarrhea. GENITOURINARY: Denies dysuria or hematuria. SKIN: Denies rash or itching. MUSCULOSKELETAL: Denies back pain, joint pain, or myalgia. NEUROLOGIC: Denies headache, numbness, or weakness. PSYCHIATRIC: Denies anxiety or depression. [facility] Past Medical History Medical History Heart murmur Hx of tonsillitis Labor without complication Neck fracture Spontaneous rupture of membranes Von Willebrand disease Surgical History Surgical History History of partial thyroidectomy History of tonsillectomy Hx of cholecystectomy Family History Family History Grandparent Lung cancer Mother Breast cancer Other Uterine cancer Grandparent Dementia Social History Social History Smoking status: Never smoker Second hand tobacco smoke exposure: No Substance use: never Gender identity (if verbalized by the patient): Female Spiritual care concerns: No Exam Narrative: General appearance: Well-developed, well-nourished Skin: Normal color Head: Normocephalic, nontraumatic Eyes: Clear conjunctiva ENT: Oropharynx normal, ears normal, nose normal Neck: Supple, nontender Chest and respiratory: Airway patent, no respiratory distress, no accessory muscle use Heart: Regular rate/rhythm Abdomen: Soft, mild diffuse tenderness lower abdomen mainly left lower quadrant, no organomegaly, quiet bowel sounds Vascular: Normal peripheral pulses, normal capillary refill. 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
[2021-05-06] MEDS: cefTRIAXone 1 GM VIAL 0.5 GM IM (15:52)
[2021-05-06 16:31] VITALS: BP 122/78; PULSE 78; RESP 18; O2SAT 99
== END 2021-05-06 16:32 | disposition home or self-care (01) ==
PROVIDERS: Emergency Provider Emergency Medicine; PCP Family Medicine
DX: N73.0 Acute parametritis and pelvic cellulitis (principal); D68.0 Von Willebrand disease; E89.0 Postprocedural hypothyroidism; K44.9 Diaphragmatic hernia without obstruction or gangrene
CPT/HCPCS: 36415; 74176; 80053; 81001; 81025; 83690; 85025; 87070; 87491; 87591; 87808; 96360; 96372; 99284; J0696; J7030

== ENCOUNTER 2022-07-23 15:47 | Emergency (ER) | payer BC, SELFPAY ==
[2022-07-23 15:49] VITALS: BP 122/61; PULSE 87; RESP 16; TEMP 36.8; O2SAT 100
--- NOTE | 2022-07-23 16:43 | ED.SKABFB ---
HPI - Skin/Abscess/Foreign Bdy General Chief complaint: Skin/Abscess/Foreign Body Stated complaint: rash Time Seen by Provider: 07/23/22 15:52 Source: patient Mode of arrival: ambulatory Limitations: no limitations History of Present Illness HPI narrative: Patient is a 27-year-old female who presents ED with report of a papular rash. Patient reports she first noticed rash to the right side of her mouth and face last night. The rash has since spread to her left facial cheek, inner elbows, upper arms, bilateral inner groins, left mid back. Patient reports the rash is very itchy and feels inflamed. She has not tried anything for symptoms. She states she had a similar rash as a child that improved with steroid cream. Denies pain. Denies any fevers, difficulty breathing or swallowing, swelling of mucosal membranes. Denies any family or similar symptoms. She has been outside recently, but not in the grass. Denies any new lotions, detergents, body wash, medicines. Related Data Allergies Allergy/AdvReac Type Severity Reaction Status Date / Time Contrast Media AdvReac Unknown N/V Uncoded 07/23/22 15:47 DIAPHORESIS Review of Systems Review of Systems: CONSTITUTIONAL: Denies fever, chills, or sweats. ENT: See HPI. CARDIOVASCULAR: Denies chest pain. RESPIRATORY: Denies dyspnea. SKIN: See HPI. NEUROLOGIC: Denies tingling, numbness, or weakness. All systems reviewed & are unremarkable except as noted in HPI and below PMFSH Past Medical History Medical History Heart murmur Hx of tonsillitis Labor without complication Neck fracture Spontaneous rupture of membranes Von Willebrand disease Surgical History Surgical History History of partial thyroidectomy History of tonsillectomy Hx of cholecystectomy Family History Family History Grandparent Lung cancer Mother Breast cancer Other Uterine cancer Grandparent Dementia Social History Social History Smoking status: Never smoker Second hand tobacco smoke exposure: No Substance use: never Gender identity (if verbalized by the patient): Female Spiritual care concerns: No Exam Narrative: GENERAL: Well appearing, well-nourished, non-toxic, in no acute distress. HEAD: Normocephalic, atraumatic. ENT: MMs moist. No swelling of lips or tongue. Airway patent. No stridor. NECK: Supple. No adenopathy, no masses. RESPIRATORY: Airway patent, respirations nonlabored. CARDIOVASCULAR: Regular rate and rhythm without murmurs, rubs, or gallops. Radial pulses 2+ and equal bilaterally. MUSCULOSKELETAL: Moves all extremities. Strength/ROM intact without gross deformities. SKIN: Warm, dry, normal color. No rashes. Clusters of maculopapular rash/inflamed erythematous skin to bilateral facial cheeks, flexor surfaces of bilateral arms, left forearm and left upper arm, left mid back, bilateral inner groins. Few small papules to finger webspaces. No pustules. No vesicles. No desquamation of skin. No drainage. NEURO: A&O X3. Speech clear. Cranial nerves II-XII grossly intact. Steady gait. No ataxic movements. PSYCHIATRIC: Appropriate mood and affect. Normal interaction. Course Vital Signs Vital signs: Vital Signs Temperature 98.2 F 07/23/22 15:49 Pulse Rate 87 07/23/22 15:49 Respiratory Rate 16 07/23/22 15:49 Blood Pressure 122/61 07/23/22 15:49 Pulse Oximetry 100 07/23/22 15:49 Oxygen Delivery Room Air 07/23/22 15:49 Temperature 98.2 F 07/23/22 15:49 Pulse Rate 87 07/23/22 15:49 Respiratory Rate 16 07/23/22 15:49 Blood Pressure 122/61 07/23/22 15:49 Pulse Oximetry 100 07/23/22 15:49 Oxygen Delivery Room Air 07/23/22 15:49 MDM - Skin/Abscess/Foreign Bdy MDM Narrative Medical deci
[2022-07-23] MEDS: methylPREDNISolone SOD SUCC 125 MG VIAL IM (17:10)
== END 2022-07-23 17:10 | disposition home or self-care (01) ==
PROVIDERS: Emergency Provider Physician Assistant
DX: R21 Rash and other nonspecific skin eruption (principal); D68.00 Von Willebrand disease, unspecified; E89.0 Postprocedural hypothyroidism; Z90.49 Acquired absence of other specified parts of digestive tract
CPT/HCPCS: 96372; 99283; J2930

== ENCOUNTER 2022-07-28 22:44 | Emergency (ER) | payer BC, SELFPAY ==
[2022-07-28 22:46] VITALS: BP 119/64; PULSE 87; RESP 16; TEMP 36.6; O2SAT 98
--- NOTE | 2022-07-29 01:40 | PC.NURSE ---
no answer at triage
== END 2022-07-29 03:11 | disposition left against medical advice (07) ==
LOC: ANHED 07-29 01:46
DX: R21 Rash and other nonspecific skin eruption (principal)
CPT/HCPCS: 99199

== ENCOUNTER 2022-08-01 13:25 | Emergency (ER) | payer BC, SELFPAY ==
[2022-08-01 13:32] VITALS: BP 118/64; PULSE 97; RESP 18; TEMP 36.5; O2SAT 97
--- NOTE | 2022-08-01 14:22 | ED.SKABFB ---
HPI - Skin/Abscess/Foreign Bdy General Chief complaint: Skin/Abscess/Foreign Body Stated complaint: rash Time Seen by Provider: 08/01/22 13:38 History of Present Illness HPI narrative: 27-year-old female returns to the emergency room for evaluation of unresolved pruritic rash to her arms, inner thighs, and left flank. Patient was seen here in the emergency room last week and was given a steroid cream. States the rash has not resolved. Patient states that the rash on her right arm is pruritic, and has yellow discharge. Patient denies any new lotions, medications, soaps/detergents or environmental exposures. Patient denies fevers. Related Data Allergies Allergy/AdvReac Type Severity Reaction Status Date / Time Contrast Media AdvReac Unknown N/V Uncoded 08/01/22 13:25 DIAPHORESIS Review of Systems Review of Systems: CONSTITUTIONAL: Denies fever, chills, or sweats. EYES: Denies visual changes, redness, or discharge. ENT: Denies rhinorrhea, congestion, sore throat, or otalgia. CARDIOVASCULAR: Denies chest pain, palpitations, or edema. RESPIRATORY: Denies cough or dyspnea. GASTROINTESTINAL: Denies abdominal pain, nausea, vomiting, or diarrhea. GENITOURINARY: Denies dysuria or hematuria. SKIN: Reports rash MUSCULOSKELETAL: Denies back pain, joint pain, or myalgia. NEUROLOGIC: Denies headache, numbness, dizziness, or weakness. PSYCHIATRIC: Denies anxiety or depression. [facility] Past Medical History Medical History Heart murmur Hx of tonsillitis Labor without complication Neck fracture Spontaneous rupture of membranes Von Willebrand disease Surgical History Surgical History History of partial thyroidectomy History of tonsillectomy Hx of cholecystectomy Family History Family History Grandparent Lung cancer Mother Breast cancer Other Uterine cancer Grandparent Dementia Social History Social History Smoking status: Never smoker Second hand tobacco smoke exposure: No Substance use: never Gender identity (if verbalized by the patient): Female Spiritual care concerns: No Exam Narrative: GENERAL: Well-appearing, well-nourished, no physical limitations, and in no acute distress. HEAD: Normocephalic, atraumatic. EYES: Conjunctivae normal, PERRLA and EOMI. CHEST: Clear to auscultation. No respiratory distress. No wheezes rales or rhonchi. HEART: Regular rate and rhythm. No murmur heard. Normal peripheral pulses. EXTREMITIES: Normal range of motion. No edema. No clubbing or cyanosis SKIN: Areas of maculopapular erythematous rash to bilateral antecubital areas, bilateral inner thighs, and left flank. Kat-colored discharge noted to right AC. No pustules or vesicles noted. NEURO: No focal deficits. Alert and oriented x3. MAEW. CN's II-XI intact bilaterally, normal gait PSYCH: Cooperative. Normal mood and affect. Course Vital Signs Vital signs: Vital Signs Temperature 36.5 C 08/01/22 13:32 Pulse Rate 97 08/01/22 13:32 Respiratory Rate 18 08/01/22 13:32 Blood Pressure 118/64 08/01/22 13:32 Pulse Oximetry 97 08/01/22 13:32 Oxygen Delivery Room Air 08/01/22 13:32 Temperature 36.5 C 08/01/22 13:32 Pulse Rate 97 08/01/22 13:32 Respiratory Rate 18 08/01/22 13:32 Blood Pressure 118/64 08/01/22 13:32 Pulse Oximetry 97 08/01/22 13:32 Oxygen Delivery Room Air 08/01/22 13:32 Discharge Plan Discharge Clinical Impression: Eczema, Impetigo Patient Disposition: Home, Self-Care Condition: Stable Instructions: Antibiotic Form, Eczema (ED) Prescriptions: New prednisone 20 mg tablet 60 mg PO DAILY 5 Days Qty: 15 0RF betamethasone valerate 0.1 % cream 1 applic topical BID PRN (Reason: rash) Qty: 45 0RF sulf
[2022-08-01 14:51] VITALS: BP 118/76; PULSE 78; RESP 16; TEMP 36.6; O2SAT 99
== END 2022-08-01 14:54 | disposition home or self-care (01) ==
PROVIDERS: Emergency Provider Nurse Practitioner Family; PCP Family Medicine
DX: L01.00 Impetigo, unspecified (principal); L30.9 Dermatitis, unspecified; D68.00 Von Willebrand disease, unspecified; E89.0 Postprocedural hypothyroidism; Z90.49 Acquired absence of other specified parts of digestive tract
CPT/HCPCS: 96372; 99283; J1100

== ENCOUNTER 2022-09-05 16:48 | Observation (INO) | payer BC, SELFPAY ==
--- NOTE | ~2022-09-05 | US_ITS ---
EXAMINATION: US OB transvaginal DATE: 09/05/2022 20:41 INDICATION: Vaginal bleeding. . TECHNIQUE: Real-time transabdominal and transvaginal pelvic ultrasound was performed. COMPARISON: None. FINDINGS: TRANSABDOMINAL ULTRASOUND: The uterus measures 10.8 x 4.9 x 5.2 cm. TRANSVAGINAL ULTRASOUND: There is no visible intrauterine gestational sac. The endometrial complex me asures 1.9 cm in thickness. The right ovary measures 1.7 x 1.7 x 1.9 cm. The left ovary measures 2.1 x 2.0 x 2.0 cm. There is no free fluid in the pelvis. IMPRESSION: 1. No visible intrauterine gestational sac, which may be normal in early . Spontaneous abor tion and ectopic are not excluded. Serial beta-hCGs are recommended. Reviewed, dictated and finalized at location E. IMPRESSION: 1. No visible intrauterine gestational sac, which may be normal in early pregn katy. Spontaneous and ectopic are not excluded. Serial beta- hCGs are recommended.
[2022-09-05 16:51] VITALS: BP 109/61; PULSE 73; RESP 16; TEMP 36.4; O2SAT 99
[2022-09-05 17:54] LABS: Basophils Percent Auto 0.4 % (0.2-1.2); Eosinophils Absolute Auto 0.1 K/mm3 (0-0.3); Eosinophils Percent Auto 1.3 % (0-4.4); Hematocrit 41.4 % (37.0-47.0); Hemoglobin 13.9 g/dL (12.0-15.0); Immature Granulocyte Absolute 0.04 K/mm3 (0.00-0.031); Immature Granulocyte Percent A 0.4 % (0-0.5); Lymphocytes Absolute Auto 2.11 K/mm3 (0.9-3.2); Lymphocytes Percent Auto 21.8 % (18.3-44.2); Mean Corpuscular HGB Conc 33.6 g/dl (32-36); Mean Corpuscular Hemoglobin 31.2 pg (26-34); Mean Corpuscular Volume 92.8 fl (80-100); Mean Platelet Volume 10.1 fl (7.4-10.4); Monocytes Absolute Auto 0.9 K/mm3 (0.1-0.6); Monocytes Percent Auto 8.9 % (2.6-8.5); Neutrophils Absolute Auto 6.5 K/mm3 (1.3-6.7); Neutrophils Percent Auto 67.2 % (45.5-73.1); Platelet Count Result 329 k/mm3 (150-375); Red Blood Count 4.46 M/mm3 (4.2-5.4); Red Cell Distribution Width 13.2 % (11.5-14.5); White Blood Count 9.7 K/mm3 (4.5-10.0)
[2022-09-05 19:13] VITALS: BP 104/61; PULSE 73; RESP 18; O2SAT 99
[2022-09-05] MEDS: ACETAMINOPHEN 500 MG TABLET 1000 MG PO (20:50)
[2022-09-05] MEDS: LORazepam INJ (*CRX) 2 MG/ML VIAL 0.5 MG IV PUSH (20:51)
[2022-09-05] MEDS: oxyCODONE HCL (*CRX) 5 MG TAB IR PO (20:51)
[2022-09-05] MEDS: KETOROLAC 15 MG/ML VIAL (*BKC) IV PUSH (21:00)
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
[2022-09-05 22:35] VITALS: BP 102/65; PULSE 81; RESP 17; O2SAT 97
[2022-09-05 22:45] VITALS: BP 115/61; PULSE 79; RESP 16; TEMP 36.4; O2SAT 97
[2022-09-05] MEDS: LACTATED RINGERS 1,000 ML 125 ML IV CONT (23:14)
[2022-09-06] MEDS: IBUPROFEN 400 MG TABLET 800 MG PO (04:53)
[2022-09-06] MEDS: LACTATED RINGERS 1,000 ML 125 ML IV CONT (04:55)
[2022-09-06] MEDS: ONDANSETRON INJ 4 MG/2 ML VIAL IV PUSH (05:06)
[2022-09-06 06:00] VITALS: BP 99/59; PULSE 68; RESP 16; TEMP 35.7; O2SAT 97
--- NOTE | 2022-09-06 07:48 | WPDHPUPDATE1 ---
History and Physical Update Update Date/Time: 09/06/22 07:48 History and Physical has been reviewed, including an updated exam of the patient. There are NO changes in the patient's condition. Risks, benefits, and alternatives have been discussed and questions answered. Patient agrees to proceed with procedure.
--- NOTE | 2022-09-06 10:31 | PM.IMHP ---
H&P: HPI History of Present Illness Date/Time: 09/06/22 10:31 this patient is a 27-year-old multiparous female who presented the emergency department with vaginal bleeding. She apparently a completed miscarriage. Ultrasound performed in the ED that showed no products conception. Her bleeding was moderate in the emergency department and observation was required. She was admitted the hospital for observation. This was a observation admission. Her bleeding resolved. She denies any nausea, vomiting, fever, chills. She denies any chest pain or shortness of breath. She will follow-up in 1 week. Chief Complaint: Vaginal bleeding Review of Systems Review of Systems: All systems reviewed & are unremarkable except as noted in HPI and below Constitutional: Constitutional: Denies chills, Denies fatigue, Denies fever(s) and Denies weakness Eyes: Eyes: Denies blurry vision, Denies change in vision, Denies loss of peripheral vision, Denies loss of vision, Denies other visual disturbances and Denies eye pain ENT: Denies vertigo, Denies dizziness, Denies hearing loss, Denies mouth pain, Denies nasal obstruction, Denies neck mass and Denies neck pain Cardiovascular: Cardiovascular: Denies chest pain, Denies diaphoresis, Denies syncope, Denies leg edema and Denies dyspnea Respiratory: Respiratory: Denies chest congestion, Denies cough, Denies hemoptysis, Denies dyspnea and Denies wheezing Gastrointestinal: Gastrointestinal: Denies abdominal pain, Denies constipation, Denies diarrhea, Denies nausea and Denies vomiting Genitourinary: Genitourinary: Denies hematuria, Denies change in libido, Denies nocturia, Denies genital lesions, Denies flank pain and Denies urinary urgency Musculoskeletal: Musculoskeletal: Denies abnormal gait, Denies back pain, Denies myalgias, Denies arthralgias, Denies joint swelling, Denies muscle weakness and Denies neck pain Integumentary/Breasts: Skin/Breast: Denies swelling, Denies breast pain, Denies breast mass, Denies dry skin, Denies nipple discharge, Denies unusual bruising and Denies jaundice Neurologic: Denies Neuro-related abnormal movements, Denies Abnormal speech present, Denies abnormal gait, Denies behavioral changes, Denies confusion, Denies vertigo, Denies dizziness, Denies syncope, Denies loss of vision, Denies memory loss, Denies convulsions and Denies weakness Psychiatric: Psychiatric: Denies abnormal sleep pattern, Denies behavioral changes, Denies change in libido, Denies confusion, Denies depression, Denies anhedonia and Denies memory loss Endocrine: Endocrine: Reports no additional endocrine complaints, Denies change in libido and Denies fatigue Hematologic/Lymphatic: Hematologic/Lymphatic: Reports no additional hematologic/lymphatic complaints Allergic/Immunologic: Allergic/Immunologic: Reports no additional allergic/immunologic complaints and Denies wheezing PMFSH Past Medical History Medical History Heart murmur Hx of tonsillitis Labor without complication Neck fracture Spontaneous rupture of membranes Von Willebrand disease Surgical History Surgical History History of partial thyroidectomy History of tonsillectomy Hx of cholecystectomy Family History Family History Grandparent Lung cancer Mother Breast cancer Other Uterine cancer Grandparent Dementia Social History Social History Smoking status: Never smoker Second hand tobacco smoke exposure: No Alcohol intake: never Substance use: never Substance use type: does not use Lack of Transportation: No Lack of Food: Never True Current Housing: I Have Housing Concerned About Future Housing: No Difficulty Paying Gas/Electric Bills: No Difficulty Paying for Meds: No Currently Unemployed: No
--- NOTE | 2022-10-04 08:31 | PM.OBTRLD ---
OB - Triage/Final Diagnosis Visit Information Comments/Additional reasons for admission: I have assessed the risk for this patient, Leah Antunez, and determined that she would benefit from observation care. Evaluation Laboratory results: Laboratory Tests 09/05/22 17:41 WBC 9.7 RBC 4.46 Hgb 13.9 Hct 41.4 MCV 92.8 MCH 31.2 MCHC 33.6 RDW 13.2 Plt Count 329 MPV 10.1 Immature Gran % (Auto) 0.4 Neut % (Auto) 67.2 Lymph % (Auto) 21.8 Creek % (Auto) 8.9 H Eos % (Auto) 1.3 Baso % (Auto) 0.4 Lymph # (Auto) 2.11 [place] # (Auto) 0.9 H Eos # (Auto) 0.1 Baso # (Auto) 0.0 Abs Immat Gran (auto) 0.04 H Absolute Neuts (auto) 6.5 Absolute Nucleated RBC 0.0 Nucleated RBC % 0.0 Beta HCG, Quant 865290.00 Blood Type O Positive Antibody Screen Negative Screen Not Reportable Baby's Blood Type Not Reportable Baby's BRUNO Not Reportable Doses of RhIg Required 0 Final Diagnosis (1) Missed : Code(s): O02.1 - Missed Status: Acute
== END 2022-09-06 12:35 | disposition home or self-care (01) ==
LOC: ANHED 21:32 → ANH3MEDSUR 22:02
PROVIDERS: Emergency Medicine; Admitting Provider Obstetrics & Gynecology; Emergency Provider Emergency Medicine; PCP Family Medicine; Visit Provider Obstetrics & Gynecology
DX: O03.9 Complete or unspecified spontaneous abortion without complication (principal)
CPT/HCPCS: 36415; 76817; 84702; 85025; 85461; 86850; 86900; 86901; 96361; 96374; 96375; 99285; A9270; G0378; G0379; J1885; J2060; J2405; J7120

== ENCOUNTER 2022-10-29 17:14 | Emergency (ER) | payer BC, SELFPAY ==
[2022-10-29 17:15] VITALS: BP 120/69; PULSE 119; RESP 16; TEMP 36.6; O2SAT 96
[2022-10-29 17:21] VITALS: O2SAT 100
--- NOTE | 2022-10-29 17:40 | ED.FEVER ---
HPI - Fever General Chief Complaint: Fever Stated Complaint: sore throat, aches, chills Time Seen by Provider: 10/29/22 17:18 Source: patient Mode of arrival: ambulatory Limitations: no limitations History of Present Illness HPI Narrative: This is a 27-year-old female that presents to the emergency department for cold symptoms present over the last 3 days. Reports fever, congestion, cough, sore throat, and myalgias. She took Tylenol today with some relief. Denies chest pain or shortness of breath. Related Data Home Medications Medication Instructions Recorded Confirmed No Home Medications 09/05/22 09/05/22 Allergies Allergy/AdvReac Type Severity Reaction Status Date / Time Contrast Media AdvReac Unknown N/V Uncoded 10/29/22 17:47 DIAPHORESIS Review of Systems Review of Systems: CONSTITUTIONAL: Reports fever ENT: Reports congestion, sore throat CARDIOVASCULAR: Denies chest pain RESPIRATORY: Reports cough MUSCULOSKELETAL: Reports myalgia. All systems reviewed & are unremarkable except as noted in HPI and below PMFSH Past Medical History Medical History Heart murmur Hx of tonsillitis Labor without complication Neck fracture Spontaneous rupture of membranes Von Willebrand disease Surgical History Surgical History History of partial thyroidectomy History of tonsillectomy Hx of cholecystectomy Family History Family History Grandparent Lung cancer Mother Breast cancer Other Uterine cancer Grandparent Dementia Social History Social History Smoking status: Never smoker Second hand tobacco smoke exposure: No Alcohol intake: never Substance use: never Substance use type: does not use Lack of Transportation: No Lack of Food: Never True Current Housing: I Have Housing Concerned About Future Housing: No Difficulty Paying Gas/Electric Bills: No Difficulty Paying for Meds: No Currently Unemployed: No Education: High School Diploma/GED Difficulty w/ Childcare or Family Care: No Gender identity (if verbalized by the patient): Female Spiritual care concerns: No Exam Narrative: GENERAL: Well-appearing, well-nourished, and in no acute distress. HEAD: Normocephalic, atraumatic. EYES: EOMI. ENT: Nares clear, no rhinorrhea or epistaxis. Mucous membranes moist. Oropharynx without tonsillar hypertrophy exudate or other lesions. Bilateral TMs pearly mcdonald non-bulging NECK: Supple. No adenopathy or masses. CHEST: Clear to auscultation. No respiratory distress. No wheezes rales or rhonchi HEART: Regular rate and rhythm. No murmur heard. Normal peripheral pulses. EXTREMITIES: Normal range of motion. No edema. SKIN: Warm, dry, no rash. NEURO: No focal deficits. Alert and oriented x3. 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 Patient was updated on workup and agrees with plan of care Vital Signs Vital signs: Vital Signs Temperature 97.8 F 10/29/22 17:15 Pulse Rate 119 H 10/29/22 17:15 Respiratory Rate 16 10/29/22 17:15 Blood Pressure 120/69 10/29/22 17:15 Pulse Oximetry 96 10/29/22 17:15 Oxygen Delivery Room Air 10/29/22 17:15 Temperature 97.8 F 10/29/22 17:15 Pulse Rate 119 H 10/29/22 17:15 Respiratory Rate 16 10/29/22 17:15 Blood Pressure 120/69 10/29/22 17:15 Pulse Oximetry 100 10/29/22 17:21 Oxygen Delivery Room Air 10/29/22 17:21 MDM - Fever MDM Narrative Medical decision making narrative: Patient presents to the emergency department for cold symptoms present over the last 3 days. Reporting fevers, cough, congestion, sore throat, and myalgias. She is afebrile in the ED and nontoxic-appearing. Mildly tachycardic upon arrival, this normalized with treatment of pain.
[2022-10-29] MEDS: KETOROLAC 30 MG/ML VIAL (*BKC) IM (17:42)
[2022-10-29 17:57] LABS: Strep Group A RT-PCR NOT DETECTED (Negative)
[2022-10-29 18:07] LABS: Influenza A QL RT-PCR Negative (Negative); Influenza B QL RT-PCR Negative (Negative); SARS-CoV-2 RNA PCR Negative (Negative)
[2022-10-29 18:35] VITALS: BP 98/54; PULSE 92; RESP 18; O2SAT 98
== END 2022-10-29 18:43 | disposition home or self-care (01) ==
PROVIDERS: Emergency Provider Physician Assistant; PCP Family Medicine
DX: B34.9 Viral infection, unspecified (principal); Z20.822 Contact with and (suspected) exposure to COVID-19
CPT/HCPCS: 87636; 87651; 96372; 99283; J1885

== ENCOUNTER 2022-11-29 12:27 | Emergency (ER) | payer BC, SELFPAY ==
[2022-11-29 12:39] VITALS: BP 121/71; PULSE 50; RESP 18; TEMP 36.6; O2SAT 96
[2022-11-29 13:29] LABS: Influenza A QL RT-PCR Negative (Negative); Influenza B QL RT-PCR Negative (Negative); RSV RNA, RT-PCR Negative (Negative); SARS-CoV-2 RNA PCR Positive (Negative)
--- NOTE | 2022-11-29 14:27 | ED.URI ---
HPI - URI/Sore Throat General Chief Complaint: Upper Respiratory Infection Stated Complaint: URI Time Seen by Provider: 11/29/22 14:16 History of Present Illness HPI Narrative: Patient is a healthy 27-year-old female here with respiratory symptoms that been present for last 3 days. She does state that about 2 weeks ago she was seen in the emergency department for myalgias which only lasted a couple days and fully resolved. 3-4 days ago she began having myalgias once again which are worse behind bilateral legs. she endorses an associated headache as well as a runny nose and sinus congestion. She denies cough, shortness of breath, sore throat. No known sick contacts. She has not vaccinated for COVID her influenza. She has been taking ibuprofen and Tylenol for pain at home which seemed to be helping. No lower extremity pain or swelling. She has had some night sweats, has not checked her temperature at home. She additionally notes some diarrhea as well as some vague abdominal discomfort and decreased appetite. Related Data Home Medications Medication Instructions Recorded Confirmed No Home Medications 09/05/22 09/05/22 Allergies Allergy/AdvReac Type Severity Reaction Status Date / Time Contrast Media AdvReac Unknown N/V Uncoded 11/29/22 12:28 DIAPHORESIS Review of Systems Review of Systems: All systems reviewed & are unremarkable except as noted in HPI and below PMFSH Past Medical History Medical History Heart murmur Hx of tonsillitis Labor without complication Neck fracture Spontaneous rupture of membranes Von Willebrand disease Surgical History Surgical History History of partial thyroidectomy History of tonsillectomy Hx of cholecystectomy Family History Family History Grandparent Lung cancer Mother Breast cancer Other Uterine cancer Grandparent Dementia Social History Social History Smoking status: Never smoker Second hand tobacco smoke exposure: No Alcohol intake: never Substance use: never Substance use type: does not use Lack of Transportation: No Lack of Food: Never True Current Housing: I Have Housing Concerned About Future Housing: No Difficulty Paying Gas/Electric Bills: No Difficulty Paying for Meds: No Currently Unemployed: No Education: High School Diploma/GED Difficulty w/ Childcare or Family Care: No Gender identity (if verbalized by the patient): Female Spiritual care concerns: No Exam Narrative: GENERAL: Well-appearing, well-nourished, and in no acute distress. HEAD: Normocephalic, atraumatic. EYES: PERRLA and EOMI. ENT: Nares clear. Mucous membranes moist. NECK: Supple. CHEST: Clear to auscultation. No respiratory distress. HEART: Regular rate and rhythm. Normal peripheral pulses. ABDOMEN: Soft, nontender, nondistended. No rebound or guarding EXTREMITIES: Normal range of motion. No edema. SKIN: Warm, dry, no rash. NEURO: No focal deficits. Alert and oriented x3. PSYCH: Normal mood and affect. Course Course Emergency Course: Chart review performed. Triage vitals within normal limits. Viral swab obtained in triage shows patient is positive for COVID-19. Patient seen evaluated, nontoxic appearing, in no acute distress. She has had symptoms for 3-4 days. On exam I do not feel that any additional testing needs to be performed at this time. She is advised to continue to quarantine. 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 She is advised to continue to quarantine until symptoms start to improve and wear a mask for 7 days beyond that. She does not meet criteria for Paxlovid. The results of pertinent diagnostic studies and exam findings were discussed.
== END 2022-11-29 15:05 | disposition home or self-care (01) ==
PROVIDERS: Preventive Medicine Aerospace Medicine; Emergency Provider Student in an Organized Health Care Education/Training Program; PCP Family Medicine
DX: U07.1 COVID-19 (principal); J06.9 Acute upper respiratory infection, unspecified; Z28.310 Unvaccinated for COVID-19; E89.0 Postprocedural hypothyroidism; Z90.49 Acquired absence of other specified parts of digestive tract
CPT/HCPCS: 87637; 99283

== ENCOUNTER 2023-04-16 20:59 | Observation (INO) | payer OTHER, SELFPAY ==
[2023-04-16] VITALS (16 sets, daily range): BP systolic 94–110; BP diastolic 55–70; PULSE 93–113; RESP 18; TEMP 36.8; O2SAT 95–100; BMI 26.3
[2023-04-16 22:31] LABS: Basophils Absolute Auto 0.1 K/mm3 (0.0-0.1); Basophils Percent Auto 0.5 % (0.2-1.2); Eosinophils Absolute Auto 0.1 K/mm3 (0-0.3); Eosinophils Percent Auto 0.8 % (0-4.4); Hematocrit 41.2 % (37.0-47.0); Hemoglobin 13.6 g/dL (12.0-15.0); Immature Granulocyte Absolute 0.04 K/mm3 (0.00-0.031); Immature Granulocyte Percent A 0.4 % (0-0.5); Lymphocytes Absolute Auto 2.56 K/mm3 (0.9-3.2); Lymphocytes Percent Auto 24.7 % (18.3-44.2); Mean Corpuscular Hemoglobin 30.6 pg (26-34); Mean Corpuscular Volume 92.8 fl (80-100); Mean Platelet Volume 10.8 fl (7.4-10.4); Monocytes Absolute Auto 0.9 K/mm3 (0.1-0.6); Monocytes Percent Auto 8.6 % (2.6-8.5); Neutrophils Absolute Auto 6.7 K/mm3 (1.3-6.7); Platelet Count Result 299 k/mm3 (150-375); Red Blood Count 4.44 M/mm3 (4.2-5.4); Red Cell Distribution Width 13.7 % (11.5-14.5); White Blood Count 10.4 K/mm3 (4.5-10.0)
[2023-04-16] MEDS: ONDANSETRON INJ 4 MG/2 ML VIAL IV PUSH (22:45)
[2023-04-16] MEDS: DEXTROSE 5%/LACTATED RINGERS 1,000 ML 999 ML (22:45)
[2023-04-16 22:52] LABS: Appearance Urine Clear (Clear); Bacteria Urine None Seen /hpf; Bilirubin Urine Negative (Negative); Blood Urine Negative (Negative); Color Urine Yellow (Yellow); Glucose Urine UA Negative (Negative); Ketones Urine 3+ mg/dL (Negative); Leukocyte Esterase Ur Negative LEU/UL (NEGATIVE); Need Manual Microscopic Reviewed; Nitrate Urine Negative (Negative); Non Pathogenic Casts 0-2; Protein Urine Trace mg/dL (Negative); RBC Urine 0-2 /hpf (0-2); Specific Grav Ur 1.023 (1.001-1.035); Squamous Epithelial Cell Urine None seen /hpf (Few); pH Urine 6.5 (5.0-9.0)
[2023-04-16 22:56] LABS: Add Urine Microscopic? YES
[2023-04-16 23:22] LABS: Alanine Aminotransferase 15 U/L (6-35); Albumin Level 4.1 g/dL (3.5-5.1); Alkaline Phosphatase 47 U/L (38-126); Anion Gap 9 mmol/L (8-16); Aspartate Amino Transferase 20 U/L (14-36); Bilirubin,Total 0.5 mg/dL (0.2-1.3); Blood Urea Nitrogen 7 mg/dL (7-17); Calcium 9.4 mg/dL (8.4-10.2); Carbon Dioxide 19 mmol/L (22-30); Chloride 106 mmol/L (98-107); Estimated CRCL calculation 113 ml/min; Estimated Glomerular Filt Rate > 60; Glucose 104 mg/dL (65-110); Potassium 3.3 mmol/L (3.4-5.0); Sodium 134 mmol/L (137-145)
[2023-04-17] MEDS: LACTATED RINGERS 1,000 ML 999 ML IV CONT (00:38)
[2023-04-17] MEDS: METOCLOPRAMIDE HCL INJ 10 MG/2 ML VIAL IV PUSH (00:43)
[2023-04-17 00:47] VITALS: PULSE 86; O2SAT 100
[2023-04-17 00:52] VITALS: PULSE 82; O2SAT 100
[2023-04-17 00:54] VITALS: PULSE 98; O2SAT 98
[2023-04-17 00:56] VITALS: PULSE 82; O2SAT 98
[2023-04-17] MEDS: FAMOTIDINE 20 MG/2 ML VIAL IV PUSH (03:52)
--- NOTE | 2023-04-17 04:15 | PC.NURSE ---
Pt able to tolerate PO fluids and crackers. OK to DC home per Dr. Rashid
--- NOTE | 2023-04-19 11:24 | PM.OBTRLD ---
OB - Triage/Final Diagnosis Visit Information Comments/Additional reasons for admission: I have assessed the risk for this patient, Leah Antunez, and determined that she would benefit from observation care. Evaluation Laboratory results: Laboratory Tests 04/16/23 04/16/23 22:01 22:04 WBC 10.4 H RBC 4.44 Hgb 13.6 Hct 41.2 MCV 92.8 MCH 30.6 MCHC 33.0 RDW 13.7 Plt Count 299 MPV 10.8 H Immature Gran % (Auto) 0.4 Neut % (Auto) 65.0 Lymph % (Auto) 24.7 [place] % (Auto) 8.6 H Eos % (Auto) 0.8 Baso % (Auto) 0.5 Lymph # (Auto) 2.56 [place] # (Auto) 0.9 H Eos # (Auto) 0.1 Baso # (Auto) 0.1 Abs Immat Gran (auto) 0.04 H Absolute Neuts (auto) 6.7 Absolute Nucleated RBC 0.0 Nucleated RBC % 0.0 Sodium 134 L Potassium 3.3 L Chloride 106 Carbon Dioxide 19 L Anion Gap 9 BUN 7 Creatinine 0.60 L Estim Creat Clear Calc 113 Estimated GFR > 60 Glucose 104 Calcium 9.4 Total Bilirubin 0.5 AST 20 ALT 15 Alkaline Phosphatase 47 Total Protein 8.0 Albumin 4.1 Urine Color Yellow Urine Appearance Clear Urine pH 6.5 Ur Specific Vivian 1.023 Urine Protein Trace Urine Glucose (UA) Negative Urine Ketones 3+ H Ur Blood (Man) Negative Urine Nitrate Negative Urine Bilirubin Negative Urine Urobilinogen 1.0 Ur Leukocyte Esterase Negative Add Ur Microanalysis Reviewed Urine RBC 0-2 Urine WBC 11-20 H Ur Squamous Epith Cells None seen Urine Bacteria None seen Urine Casts 0-2 Final Diagnosis (1) Nausea and vomiting: Code(s): R11.2 - Nausea with vomiting, unspecified Status: Acute
== END 2023-04-17 04:11 | disposition home or self-care (01) ==
PROVIDERS: Admitting Provider Obstetrics & Gynecology; PCP Family Medicine; Visit Provider Obstetrics & Gynecology
DX: O21.2 Late vomiting of pregnancy (principal); Z3A.22 22 weeks gestation of pregnancy
CPT/HCPCS: 36415; 80053; 81001; 85025; 96374; 96375; G0378; G0379; J2405; J2765; J7120; J7121

== ENCOUNTER 2023-07-28 18:32 | Observation (INO) | payer OTHER, SELFPAY ==
--- NOTE | 2023-07-28 19:00 | OBADM ---
This patient, Leah Antunez, admitted to the OB room Labor/Delivery/Recovery 108 for observation. Patient/family oriented to hospital policies and general routines including ID bracelet, bed and alarms, visiting hours, pain management, procedures, bathroom and other care routines, personal items, smoking policy, room service/diet, and visiting hours. Patient/Family are encouraged to report perceived risks to care and to ask questions if they do not understand what they are told or what they should do.
--- NOTE | 2023-08-01 12:08 | PM.OBTRLD ---
OB - Triage/Final Diagnosis Visit Information Comments/Additional reasons for admission: I have assessed the risk for this patient, Leah Antunez, and determined that she would benefit from observation care. Final Diagnosis (1) Irregular contractions: Code(s): O47.9 - False labor, unspecified Status: Acute
== END 2023-07-28 19:45 | disposition home or self-care (01) ==
PROVIDERS: Admitting Provider Obstetrics & Gynecology; PCP Family Medicine; Visit Provider Obstetrics & Gynecology
DX: O47.1 False labor at or after 37 completed weeks of gestation (principal); Z3A.37 37 weeks gestation of pregnancy
CPT/HCPCS: G0378; G0379

== ENCOUNTER 2023-08-03 08:12 | Observation (INO) | payer OTHER, SELFPAY ==
[2023-08-03 08:45] VITALS: BP 131/78; PULSE 88
--- NOTE | 2023-08-03 08:58 | PM.IMHP ---
H&P: HPI History of Present Illness Date/Time: 08/03/23 08:58 Chief Complaint: contractions Narrative: Patient is a 28 year old who presents with contractions starting over the past 2 hours. Denies leakage of fluid or vaginal bleeding. Good movement. has been complicated by growth restriction with EFW 7% and AC <1%. testing and dopplers have been normal. She denies nausea, vomiting, dysuria. Review of Systems Review of Systems: All systems reviewed & are unremarkable except as noted in HPI and below PMFSH Past Medical History Medical History Heart murmur Hx of tonsillitis Labor without complication Neck fracture Spontaneous rupture of membranes Von Willebrand disease Surgical History Surgical History History of partial thyroidectomy History of tonsillectomy Hx of cholecystectomy Family History Family History Grandparent Lung cancer Mother Breast cancer Other Uterine cancer Grandparent Dementia Social History Social History Smoking status: Never smoker Second hand tobacco smoke exposure: No Alcohol intake: never Substance use: never Substance use type: does not use Lack of Transportation: No Lack of Food: Never True Current Housing: I Have Housing Concerned About Future Housing: No Difficulty Paying Gas/Electric Bills: No Difficulty Paying for Meds: No Currently Unemployed: No Education: High School Diploma/GED Difficulty w/ Childcare or Family Care: No Gender identity (if verbalized by the patient): Female Spiritual care concerns: No Meds Home Medications and Allergies Home Medications Medication Instructions Recorded Confirmed Type vits no.126-ferrous fum tablet 04/16/23 History 28 mg iron-folic acid 800 mcg tablet (Classic ) metoclopramide HCl 10 mg tablet 10 mg PO Q6H PRN Vomiting #30 tabs 04/17/23 Rx (Reglan) Allergies Allergy/AdvReac Type Severity Reaction Status Date / Time Contrast Media AdvReac Unknown N/V Uncoded 11/29/22 12:28 DIAPHORESIS Vital Signs Vital Signs - 24 hr 08/03/23 08:45 Pulse Rate 88 Blood Pressure 131/78 Exam Const: General: comfortable and no acute distress HENMT: Mouth: Yes moist mucous membranes Eyes: General: appearance normal, both eyes and all related structures Resp: Effort & Inspection: normal respiratory effort Cardio: Rate: regular rate Rhythm: regular rhythm GI: Inspection: non-distended GI Palp: Yes Soft to palpation and No Tenderness to palpation present (GI) : Other: SVE /-2 Skin: General skin exam: normal color Extrem: General: normal to inspection Psych: Mental Status: mental status grossly normal Assessment and Plan Assessment and plan (1) Irregular contractions: Code(s): O47.9 - False labor, unspecified Status: Acute Assessment and Plan: - irregular contractions, likely early latent labor - NST reactive - SVE /-2 - ok to discharge home if unchanged on recheck, present for MIL for growth restriction tomorrow
[2023-08-03 09:00] VITALS: BP 119/75; PULSE 85
[2023-08-03 09:15] VITALS: BP 121/75; PULSE 80
[2023-08-03 09:31] VITALS: BP 121/60; PULSE 79
[2023-08-03 10:09] VITALS: BMI 27.8
--- NOTE | 2023-08-06 07:55 | PM.OBTRLD ---
OB - Triage/Final Diagnosis Visit Information Comments/Additional reasons for admission: I have assessed the risk for this patient, Leah Antuenz, and determined that she would benefit from observation care.
== END 2023-08-03 09:55 | disposition home or self-care (01) ==
PROVIDERS: Admitting Provider Obstetrics & Gynecology; PCP Family Medicine; Visit Provider Obstetrics & Gynecology
DX: O47.1 False labor at or after 37 completed weeks of gestation (principal); O36.5930 Maternal care for other known or suspected poor fetal growth, third trimester, not applicable or unspecified; Z3A.38 38 weeks gestation of pregnancy
CPT/HCPCS: G0378; G0379

== ENCOUNTER 2023-08-04 17:16 | Inpatient (IN) | payer OTHER, SELFPAY ==
[2023-08-04 18:12] VITALS: BP 120/69; PULSE 83
[2023-08-04 18:12] LABS: Basophils Percent Auto 0.3 % (0.2-1.2); Eosinophils Absolute Auto 0.1 K/mm3 (0-0.3); Eosinophils Percent Auto 1.1 % (0-4.4); Hematocrit 30.6 % (37.0-47.0); Hemoglobin 9.6 g/dL (12.0-15.0); Immature Granulocyte Absolute 0.12 K/mm3 (0.00-0.031); Lymphocytes Absolute Auto 2.26 K/mm3 (0.9-3.2); Lymphocytes Percent Auto 18.3 % (18.3-44.2); Mean Corpuscular HGB Conc 31.4 g/dl (32-36); Mean Corpuscular Hemoglobin 27.7 pg (26-34); Mean Corpuscular Volume 88.4 fl (80-100); Mean Platelet Volume 12.1 fl (7.4-10.4); Monocytes Absolute Auto 0.9 K/mm3 (0.1-0.6); Monocytes Percent Auto 7.5 % (2.6-8.5); Neutrophils Absolute Auto 8.9 K/mm3 (1.3-6.7); Neutrophils Percent Auto 71.8 % (45.5-73.1); Platelet Count Result 241 k/mm3 (150-375); Red Blood Count 3.46 M/mm3 (4.2-5.4); Red Cell Distribution Width 14.6 % (11.5-14.5); White Blood Count 12.4 K/mm3 (4.5-10.0)
--- NOTE | 2023-08-04 18:32 | WPDOBADMIT ---
Obstetrics - Admit Note Admission Note: record reviewed. No pertinent additions to the history and/or any subsequent changes in the physical findings that are not consistent with the expected course of the were found. Additions to the history and/or subsequent changes in the physical findings follow.
--- NOTE | 2023-08-04 18:35 | PM.IMHP ---
H&P: HPI History of Present Illness Date/Time: 08/04/23 18:35 Chief Complaint: G 5 P 2 at 38.1 Pt is being admitted for IOL for suspected IUGR, EFW less than 7%, AC <1%, also complicated by circumvallate placenta, maternal hypoglycemia. Pt is resting comfortably. Review of Systems Review of Systems: All systems reviewed & are unremarkable except as noted in HPI and below PMFSH Past Medical History Medical History Heart murmur Hx of tonsillitis Labor without complication Neck fracture Spontaneous rupture of membranes Von Willebrand disease Surgical History Surgical History History of partial thyroidectomy History of tonsillectomy Hx of cholecystectomy Family History Family History Grandparent Lung cancer Mother Breast cancer Other Uterine cancer Grandparent Dementia Social History Social History Smoking status: Never smoker Second hand tobacco smoke exposure: No Alcohol intake: never Substance use: never Substance use type: does not use Lack of Transportation: No Lack of Food: Never True Current Housing: I Have Housing Concerned About Future Housing: No Difficulty Paying Gas/Electric Bills: No Difficulty Paying for Meds: No Currently Unemployed: No Education: High School Diploma/GED Difficulty w/ Childcare or Family Care: No Gender identity (if verbalized by the patient): Female Spiritual care concerns: No Meds Home Medications and Allergies Home Medications Medication Instructions Recorded Confirmed Type vits no.126-ferrous fum tablet 04/16/23 History 28 mg iron-folic acid 800 mcg tablet (Classic ) metoclopramide HCl 10 mg tablet 10 mg PO Q6H PRN Vomiting #30 tabs 04/17/23 Rx (Reglan) Allergies Allergy/AdvReac Type Severity Reaction Status Date / Time Contrast Media AdvReac Unknown N/V Uncoded 11/29/22 12:28 DIAPHORESIS Vital Signs Vital Signs - 24 hr 08/04/23 18:12 Pulse Rate 83 Blood Pressure 120/69 Exam Const: General: cooperative Chest: Chest palpation & inspection: normal inspection of the chest Resp: Effort & Inspection: normal respiratory effort Cardio: Rate: regular rate Rhythm: regular rhythm GI: Other: gravid Back/Spine/Pelvis: Back: no CVA tenderness Skin: General skin exam: normal color Neuro: General: patient oriented x3 Extrem: Right lower extremity: normal to inspection Left lower extremity: normal to inspection Psych: Appearance: grossly normal H&P: Results Labs Labs: Short CBC 08/04/23 Range/Units 18:00 WBC 12.4 H (4.5-10.0) K/mm3 Hgb 9.6 L D (12.0-15.0) g/dL Hct 30.6 L (37.0-47.0) % Plt Count 241 (150-375) k/mm3 Assessment and Plan Assessment and plan (1) IUGR (intrauterine growth restriction): Status: Acute Plan at 38.1 weeks gestation suspected IUGR plan IOL dr. rashid co-managing
--- NOTE | 2023-08-04 18:40 | LDADM ---
This patient, Leah Antunez, was admitted to Labor/Delivery/Recovery 107 on 08/04/23 at 17:16. Plans for labor, pain management and were discussed with patient. Patient/family oriented to hospital policies and general routines including ID bracelet, bed and alarms, visiting hours, pain management, procedures, bathroom and other care routines, personal items, smoking policy, room service/diet and guest tray routines, security routines, and visiting hours. Patient/Family are encouraged to report perceived risks to care and to ask questions if they do not understand what they are told or what they should do. See [facility] for further documentation.
[2023-08-04 18:47] VITALS: BMI 28.4
[2023-08-04] MEDS: LACTATED RINGERS 1,000 ML 125 ML IV CONT (18:48)
[2023-08-04] MEDS: AMPICILLIN 2 GM/NS 100 ML 2 GM/100 ML BAG IVPB (18:48)
[2023-08-04 19:01] LABS: HIV 1/2 Ab P24 Ag Result Negative (Negative)
[2023-08-04 20:00] VITALS: TEMP 36.4
[2023-08-04 22:00] VITALS: TEMP 36.6
[2023-08-04] MEDS: AMPICILLIN 1 GM/NS 50 ML 1 GM/50 ML BAG IVPB (23:06)
[2023-08-04 23:17] VITALS: BP 101/78; PULSE 85
[2023-08-05] VITALS (67 sets, daily range): BP systolic 88–140; BP diastolic 48–112; PULSE 61–114; RESP 16–18; TEMP 36.2–36.6; O2SAT 93–100
[2023-08-05] MEDS: fentaNYL CITRATE INJ (*CRX) 100 MCG/2 ML VIAL IV PUSH (00:59)
[2023-08-05] MEDS: LACTATED RINGERS 1,000 ML 125 ML IV CONT (02:55)
[2023-08-05] MEDS: AMPICILLIN 1 GM/NS 50 ML 1 GM/50 ML BAG IVPB ×2 (03:00→06:52)
--- NOTE | 2023-08-05 04:36 | WPDANESEPP ---
Anes - Eval Pre Procedure Procedure: Labor Epidural Date/Time: 08/05/23 04:36 Surgeon: Ricarda Preop Diagnosis: Labor Pain Pre Op Diagnosis: Induction of Labor Patient Data Age: 28 Gender: F Height: 1.68 m Weight: 80 kg Last Vital Signs Temp 36.6 C 08/04/23 22:00 Pulse 83 08/05/23 03:48 BP 108/64 08/05/23 03:48 Pulse Ox 93 08/05/23 04:06 Allergies Allergy/AdvReac Type Severity Reaction Status Date / Time Contrast Media AdvReac Unknown N/V Uncoded 11/29/22 12:28 DIAPHORESIS Home Medications Medication Instructions Recorded Confirmed Type vits no.126-ferrous fum tablet 04/16/23 History 28 mg iron-folic acid 800 mcg tablet (Classic ) metoclopramide HCl 10 mg tablet 10 mg PO Q6H PRN Vomiting #30 tabs 04/17/23 Rx (Reglan) Laboratory Tests 08/04/23 18:00 WBC 12.4 H K/mm3 (4.5-10.0) RBC 3.46 L M/mm3 (4.2-5.4) Hgb 9.6 L D g/dL (12.0-15.0) Hct 30.6 L % (37.0-47.0) MCV 88.4 fl (80-100) MCH 27.7 pg (26-34) MCHC 31.4 L g/dl (32-36) RDW 14.6 H % (11.5-14.5) Plt Count 241 k/mm3 (150-375) MPV 12.1 H fl (7.4-10.4) Immature Gran % (Auto) 1.0 H % (0-0.5) Neut % (Auto) 71.8 % (45.5-73.1) Lymph % (Auto) 18.3 % (18.3-44.2) [place] % (Auto) 7.5 % (2.6-8.5) Eos % (Auto) 1.1 % (0-4.4) Baso % (Auto) 0.3 % (0.2-1.2) Lymph # (Auto) 2.26 K/mm3 (0.9-3.2) [place] # (Auto) 0.9 H K/mm3 (0.1-0.6) Eos # (Auto) 0.1 K/mm3 (0-0.3) Baso # (Auto) 0.0 K/mm3 (0.0-0.1) Abs Immat Gran (auto) 0.12 H K/mm3 (0.00-0.031) Absolute Neuts (auto) 8.9 H K/mm3 (1.3-6.7) Absolute Nucleated RBC 0.000 K/mm3 (0.0-0.012) Nucleated RBC % 0.0 % (0.0-0.2) RPR Pending HIV 1&2 Ab/P24 Ag 4thGn Negative (Negative) Blood Type O Positive Antibody Screen Negative : gestational age (ANEESH 08/17/23, ) Patient hx anesthesia problems: none Family hx anesthesia problems: none Results Review: All pre-operative results and documents have been reviewed as part of the pre-operative evaluation. [facility] Past Medical History Medical History Heart murmur Hx of tonsillitis Labor without complication Neck fracture Spontaneous rupture of membranes Von Willebrand disease Surgical History Surgical History History of partial thyroidectomy History of tonsillectomy Hx of cholecystectomy Family History Family History Grandparent Lung cancer Mother Breast cancer Other Uterine cancer Grandparent Dementia Social History Social History Smoking status: Never smoker Second hand tobacco smoke exposure: No Alcohol intake: never Substance use: never Substance use type: does not use Do You Feel Safe in your Home?: Yes Lack of Transportation: No Lack of Food: Never True Current Housing: I Have Housing Concerned About Future Housing: No Difficulty Paying Gas/Electric Bills: No Difficulty Paying for Meds: No Currently Unemployed: No Education: High School Diploma/GED Difficulty w/ Childcare or Family Care: No Gender identity (if verbalized by the patient): Female Spiritual care concerns: No Exam Day of Procedure 08/05/23 04:36 Patient weight: normal Heart: regular rate and rhythm Lungs: normal air movement Airway: Mallampati scale class II Neurological: alert and oriented
[2023-08-05] MEDS: OXYTOCIN 30 UNITS/NS 500 ML 30 UNITS/500 ML BAG IV CONT (06:31)
--- NOTE | 2023-08-05 07:47 | PM.OBPRVD ---
OB - Vaginal Delivery Note Procedure Delivery date: 08/05/23 Events: Intrauterine Growth Restriction (IUGR) Induction method: AROM and Per Pitocin Protocol Delivery monitor: External FHT and External Uterine Route of delivery: Episiotomy description: None Laceration Description: None Specimen: Yes Quantitative Blood Loss (ml): 75 Anesthesia type: Epidural Disposition: Floor Complications: No immediate complications Baby Date of : 08/05/23 Time of : 07:34 Weeks of gestation at delivery: 38 gender: Female presentation: vertex position: Left Occiput Anterior Placenta delivery description: Spontaneous Cord Vessel Description: 3 Vessels, Clamped/Cut and Delayed Cord Clamping score one minute: 9 score five minutes: 9 Narrative: mother and baby skin to skin in stable condition
[2023-08-05] MEDS: OXYTOCIN 30 UNITS/NS 500 ML 30 UNITS/500 ML BAG 125 UNITS IV CONT (08:04)
[2023-08-05] MEDS: BENZOCAINE 20% AER SPR (*SP) 56 GM CAN 1 SPRAY TOPICAL (10:17)
[2023-08-05] MEDS: WITCH HAZEL 40 PADS 1 PAD TOPICAL (10:17)
--- NOTE | 2023-08-05 10:25 | PC.NURSE ---
Patient transferred to post room #291 per wheelchair from labor and delivery. Support person present. Oriented to unit, room, information board, rooming in, admission packet and security measures. Patient verbalizes understanding.
[2023-08-05] MEDS: POLYSACCHARIDE IRON COMPLEX 150 MG CAPSULE PO ×2 (11:29→17:00)
[2023-08-05] MEDS: IBUPROFEN 600 MG TABLET PO ×2 (11:31→20:25)
[2023-08-05] MEDS: MULTIVIT/MIN/PREN/FOL AC/IRON TABLET 1 TAB PO (11:32)
[2023-08-05 13:15] LABS: Rapid Plasma Reagin Non-Reactive (NonReactive)
[2023-08-05] MEDS: ACETAMINOPHEN 325 MG TABLET 650 MG PO ×2 (16:56→23:01)
[2023-08-05] MEDS: DOCUSATE SODIUM 100 MG CAPSULE PO (20:25)
[2023-08-05] MEDS: METOCLOPRAMIDE HCL 10 MG TABLET PO (21:17)
[2023-08-06] MEDS: SIMETHICONE 80 MG TAB.CHEW PO (03:09)
[2023-08-06 05:20] LABS: Hematocrit 29.9 % (37.0-47.0); Hemoglobin 9.1 g/dL (12.0-15.0)
[2023-08-06] MEDS: ACETAMINOPHEN 325 MG TABLET 650 MG PO (05:38)
[2023-08-06] MEDS: IBUPROFEN 600 MG TABLET PO (05:38)
--- NOTE | 2023-08-06 07:48 | PM.OBPNVD ---
OB - PN: Subj Subjective Date/time seen: 08/06/23 07:48 Patient comments: no complaints, pain well controlled, incisional pain, tolerating diet and flatus present OB - PN: Obj Data Labs 08/06/23 05:12 Labs: Laboratory Results - last 24 hr 08/04/23 08/06/23 18:00 05:12 Hgb 9.1 L Hct 29.9 L RPR Non-reactive OB - PN A/P Plan day: 1 Plan: routine care Comments: No problems, routine care Time Spent With Patient Time: Total time spent is greater than 50% in coordination of care (as documented) at patient's floor/unit and/or counseling patient: Exam Const: General: comfortable, no acute distress and alert Resp: Effort & Inspection: normal respiratory effort Auscultation: no crackles, no rales and no rhonchi Cardio: Rate: regular rate Heart sounds: no click, no murmurs and no rubs GI: Inspection: non-distended GI Palp: No Tenderness to palpation present (GI) Auscultation: normal bowel sounds Other: Incision - CDI Extrem: General: normal to inspection, no pedal edema and no calf tenderness
--- NOTE | 2023-08-06 07:48 | PM.OBDSVD ---
DS: Admitting Diagnosis Discharge Date August 06, 2023 Admitting Diagnosis term OB - DS: Summary OB Procedures : None OB Procedures Intrapartum: Spontaneous Vag Delivery OB Procedures: : None Peripartum Data Laceration Description: None Episiotomy description: None Time Spent with Patient Time attestation: Total time spent providing and/or coordinating discharge services: DS: Data Data Completed and Pending Pending studies at discharge: Pending at discharge 08/05/23 09:45 Surgical [PTH] Routine Labs on day of discharge: Labs from last 24 hours 08/06/23 08/04/23 05:12 18:00 Hgb 9.1 L Hct 29.9 L RPR Non-reactive Discharge Plan Discharge Discharging Clinician: Arnaldo Chowdary Patient Disposition: Home, Self-Care Activity: pelvic rest Diet: regular Patient Instructions: Antibiotic Form Stand Alone Forms: General Discharge Information Follow-up/Referrals: Arnaldo Chowdary MD [Physician] - Discharge Medications: Continued Classic 28 mg iron- 800 mcg Tablet metoclopramide HCl [Reglan] 10 mg Tablet 10 mg PO Q6H PRN (Reason: Vomiting) Qty: 30 0RF Date of admission: 08/04/23 17:16 Primary Care Provider: Demi Castañeda Admitting Provider: Arnaldo Chowdary Attending physician on admission: Arnaldo Chowdary Condition: Stable
[2023-08-06 07:55] VITALS: BP 102/67; PULSE 74; RESP 16; TEMP 36.6; O2SAT 99
[2023-08-06] MEDS: BENZOCAINE 20% AER SPR (*SP) 56 GM CAN 1 SPRAY TOPICAL (09:34)
[2023-08-06] MEDS: WITCH HAZEL 40 PADS 1 PAD TOPICAL (09:34)
[2023-08-06] MEDS: MULTIVIT/MIN/PREN/FOL AC/IRON TABLET 1 TAB PO (09:34)
[2023-08-06] MEDS: POLYSACCHARIDE IRON COMPLEX 150 MG CAPSULE PO (09:34)
--- NOTE | 2023-08-06 10:59 | WPDANLDPN2 ---
Anes-Prog Note L&D Date/Time: 08/06/23 10:59 Neuro status: Neuro function grossly intact. Cardiovascular status: normal Respiratory status: normal Airway patency: baseline Mental status: baseline Post-Op hydration status: normal Vital Signs: Last Vital Signs Temp 36.6 C 08/06/23 07:55 Pulse 74 08/06/23 07:55 Resp 16 08/06/23 07:55 BP 102/67 08/06/23 07:55 Pulse Ox 99 08/06/23 07:55 O2 Del Method Room Air 08/05/23 20:10 Pain score (VAS): 0 I/O: Intake & Output 08/05/23 08/06/23 08/06/23 23:59 07:59 15:59 Intake Total 240 0 Balance 240 0 Post-procedural complaints: none Patient feedback: Patient satisfied with anesthetic care.
[2023-08-07 11:49] VITALS: BP 106/60; PULSE 80; RESP 18; TEMP 36.8; O2SAT 97
== END 2023-08-06 11:00 | disposition home or self-care (01) | DRG 560 ==
LOC: ANHLDR 17:39 → ANHOB2 08-05 10:27
PROVIDERS: Advanced Practice Midwife; Admitting Provider Obstetrics & Gynecology; PCP Family Medicine; Visit Provider Obstetrics & Gynecology
DX: O36.5930 Maternal care for other known or suspected poor fetal growth, third trimester, not applicable or unspecified (principal); Z37.0 Single live birth; Z3A.38 38 weeks gestation of pregnancy; O43.113 Circumvallate placenta, third trimester
CPT/HCPCS: 36415; 85014; 85018; 85025; 86592; 86703; 86850; 86900; 86901; 88307; A9270; G0432; J0290; J2590; J2795; J3010; J7120

== ENCOUNTER 2024-05-21 09:02 | Emergency (ER) | payer OTHER, SELFPAY ==
--- NOTE | ~2024-05-21 | CT_ITS ---
EXAMINATION: CT soft tissue neck wo con DATE: 05/21/2024 11:16 INDICATION: Swelling of the neck and adenoids. TECHNIQUE: Computed tomography (CT) of the neck was performed without intravenous contrast. Automated exposure control and iterative reconstruction technique were employed. The dose-length product was 4 37.45 mGy-cm. COMPARISON: Cervical spine CT dated 01/06/2020 FINDINGS: Orbits are normal. The paranasal sinuses are clear. Visualized sinuses and mastoid aircells are well aerated. Submandibular and parotid glands are symmetric. Thyroid gland is unremarkable. There are sca ttered normal-sized lymph nodes in the neck, no lymphadenopathy. Unchanged mild symmetric increased p rominence of the adenoids but without narrowing of the nasopharyngeal airway. The prevertebral soft t issues and epiglottis are also normal with patent oropharyngeal and pharyngeal airway. No masses iden tified. There is mixed soft tissue and fat density within the anterior mediastinum which maintains a normal narrow triangular morphology without discrete soft tissue density nodule or mass effect and wh ich likely represents some residual thymic tissue. Visualized upper lungs are clear. Cervical spine i s unremarkable aside from persistent straightening of the normal cervical lordosis which is likely po sitional. IMPRESSION: 1. Symmetric mild increased prominence of the adenoids, unchanged since 01/06/2020 and which does not significantly narrow the nasopharyngeal airway. Reviewed, dictated and finalized at location B. IMPRESSION: 1. Symmetric mild increased prominence of the adenoids, unchanged since 020 and which does not significantly narrow the nasopharyngeal airway.
--- NOTE | 2024-05-21 09:14 | ED_ITS ---
HPI - General Adult General Chief complaint: Unspecified Stated complaint: requesting an US Time Seen by Provider: 05/21/24 09:15 Source: patient Mode of arrival: ambulatory Limitations: no limitations History of Present Illness HPI narrative: Patient is a 29-year-old female who presents the ED requesting an ultrasound of her adenoids. Patient reports she has had intermittent swelling in her posterior ear regions/adenoids/neck for the last few months. Swelling is intermittent. Not typically associated with any other symptoms, fevers, sore throat, difficulty breathing or swallowing. Was seen by her primary care doctor and PCP ordered an US soft tissue neck. Patient states that her insurance will not cover this unless she came to the ER. Patient denies current swelling or pain. History of tonsillectomy, thyroid surgery as a child r/t cyst. Related Data Home Medications ?Medication ?Instructions ?Recorded ?Confirmed ?Last Taken ?Type vits no.126-ferrous fum tablet 04/16/23 04/16/23 08:00 History 28 mg iron-folic acid 800 mcg tablet (Classic ) Allergies Allergy/AdvReac Type Severity Reaction Status Date / Time Contrast Media AdvReac Unknown N/V Uncoded 05/21/24 09:11 DIAPHORESIS Review of Systems Review of Systems: All systems reviewed & are unremarkable except as noted in HPI. All systems reviewed & are unremarkable except as noted in HPI and below PMFSH Past Medical History Medical History Labor without complication Spontaneous rupture of membranes Neck fracture Von Willebrand disease Heart murmur Hx of tonsillitis Surgical History Surgical History History of partial thyroidectomy Hx of cholecystectomy History of tonsillectomy Family History Family History Grandparent Lung cancer Mother Breast cancer Other Uterine cancer Grandparent Dementia Social History Social History Smoking status: Never smoker Second hand tobacco smoke exposure: No Alcohol intake: never Substance use: never Substance use type: does not use Do You Feel Safe in your Home?: Yes Lack of Transportation: No Lack of Food: Never True Current Housing: I Have Housing Concerned About Future Housing: No Difficulty Paying Gas/Electric Bills: No Difficulty Paying for Meds: No Currently Unemployed: No Education: High School Diploma/GED Difficulty w/ Childcare or Family Care: No Gender identity (if verbalized by the patient): Female Spiritual care concerns: No Exam Narrative: GENERAL: Well appearing, well-nourished, non-toxic, in no acute distress. HEAD: Normocephalic, atraumatic. NECK: Supple, normal ROM. No significant lymphadenopathy appreciable in anterior/posterior cervical chains. No significant swelling, erythema, tenderness over mastoid regions bilaterally. No appreciable fullness of thyroid. No posterior pharynx erythema. No appreciable tonsillar hypertrophy or exudate. Uvula midline and not edematous. No stridor. Maintaining secretions. RESPIRATORY: Airway patent, respirations nonlabored. No stridor or distress. CARDIOVASCULAR: Regular rate and rhythm MUSCULOSKELETAL: Moves all extremities. No gross deformities. SKIN: Warm, dry, normal color. NEURO: A&O X3. Speech clear. PSYCHIATRIC: Appropriate mood and affect. Normal interaction. Course Vital Signs Vital signs: Vital Signs Temperature 97.8 F 05/21/24 09:29 Pulse Rate 85 05/21/24 09:29 Respiratory Rate 16 05/21/24 09:29 Blood Pressure 112/65 05/21/24 09:29 Pulse Oximetry 100 05/21/24 09:29 Oxygen Delivery Room Air 05/21/24 09:29 Temperature 97.8 F 05/21/24 09:29 Pulse Rate 74 05/21/24 11:00 Respiratory Rate 16 05/21/24 11:00 Blood Pressure 108/53 L 05/21/24 11:00 Pulse Oximetry 100 05/21/24 11:00 Oxygen Delivery Room Air 05/21/24 09:29 Medical Decision Making MDM Narrative Medical decision making narrative: Patient presented to ED with intermittent swelling of neck region over the last few months, wanting soft tissue ultrasound. No signs of respiratory distress or airway compromise on my exam. Patient asymptomatic. No appreciable swelling or lymphadenopathy. Vitals are stable. US soft tissue neck was ordered and showing mild increased prominence of adenoids, unchanged from 2019. No airway compromise or impingement. Patient will be discharged to follow-up with PCP and ENT for further evaluation and management. Given return precautions. She agrees with plan. Discharged in stable condition. Medical Records Medical records reviewed: Yes I reviewed the external patient's medical records. Vital Signs Vital Signs: Vital Signs Temperature 97.8 F 05/21/24 09:29 Pulse Rate 85 05/21/24 09:29 Respiratory Rate 16 05/21/24 09:29 Blood Pressure 112/65 05/21/24 09:29 Pulse Oximetry 100 05/21/24 09:29 Oxygen Delivery Room Air 05/21/24 09:29 Temperature 97.8 F 05/21/24 09:29 Pulse Rate 74 05/21/24 11:00 Respiratory Rate 16 05/21/24 11:00 Blood Pressure 108/53 L 05/21/24 11:00 Pulse Oximetry 100 05/21/24 11:00 Oxygen Delivery Room Air 05/21/24 09:29 Imaging Data Attestation: I personally reviewed and interpreted this imaging study as follows: Radiologist's impression: ITS Impressions Soft Tissue Neck CT 05/21/24 11:26 IMPRESSION: 1. Symmetric mild increased prominence of the adenoids, unchanged since 01/06/2020 and which does not significantly narrow the nasopharyngeal airway. Discharge Plan Discharge Clinical Impression: Adenoidal enlargement Patient Disposition: Home, Self-Care Condition: Stable Instructions: Antibiotic Form, Adenoidectomy (DC) Additional Instructions: Your imaging showed mild symmetric enlargement of your adenoids. Continue to follow-up with your primary care doctor, and/or ENT for further evaluation. Return to the ED if you experience difficulty breathing or swelling, severe swelling of neck, unable to keep down food or drink, persistent fevers, or any other symptoms of concern. Patient Language: Guamanian Prescriptions: No Action Classic 28 mg iron- 800 mcg Tablet metoclopramide HCl [Reglan] 10 mg Tablet 10 mg PO Q6H PRN (Reason: Vomiting) Qty: 30 0RF Follow-up/Referrals: Demi Castañeda MD [Primary Care Provider] - Sky Bob MD [Physician] - (ENT) Time of Disposition: 11:46
[2024-05-21 09:29] VITALS: BP 112/65; PULSE 85; RESP 16; TEMP 36.6; O2SAT 100
--- OUTSIDE RECORDS SUMMARY | 2024-05-21 09:34 | XMS_ITS | Clinical Summary ---
Author Organization [facility] Address [address] [place] [address] Phone Care Team Providers Care Child Welfare Social Worker Name Role Phone Provider, None Primary Care Provider Unavailabl e Social History Tobacco Use Types Packs/Day Years Used Date Smoking Tobacco: Never Assessed Comments Unknown Sex and Gender Information Value Date Recorded Sex Assigned at Not on file Legal Sex Female 1:32 PM CDT Gender Identity Not on file Sexual Orientation Not on file Plan of Treatment Upcoming Encounters Date Type Department Care Team (Latest Contact Info) Description 05/26/2024 2:00 PM CDT [facility] [address] [place] [address] Keily Banks, [facility] [address] [place] [address] Discharge Disposition: Discharged to home or Selfcare Insurance MEDICAID [place] Care Teams Child Welfare Social Worker Relationship Specialty Start Date End Date Provider, None [place] PCP - General 07/30/23
--- OUTSIDE RECORDS SUMMARY | 2024-05-21 09:34 | XMS_ITS | Referral Summary ---
Author Organization [facility] Address [address] [place] [address] Care Team Providers Care Technical Account Executive Name Role Phone Miscellaneous, Not In File Unavailable Unava ilable Unknown, Notinfile Primary Care Provider Unavail able Encounters Date Type Department Care Team Description 03/16/2024 Telephone [facility] Primary Care at [address] [place] [address] Danielle Soni, ORACIO from Last 3 Months Allergies Active Allergy Reactions Criticality Noted Date Comments Iodine Anaphylaxis High 06/13/2019 Medications chlorhexidine (PERIDEX) 0.12 % solution Apply 15 mL to the mouth or throat 2 (two) times a day 120 mL 08/02/2020 Active Active Problems Problem Noted Date Diagnosed Date Encounter for medical examination to establish c are 03/10/2024 Von Willebrand disease 03/03/2019 Constipation 11/04/2013 Overview (06/06/2017): Description: --with empty rectal vault on exam today. Consider IBS with constipation. 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 Gender Identity Not on file Sexual Orientation Not on file Last Filed Vital Signs Vital Sign Reading Time Taken Comments Blood Pressure 111/71 08/01/2020 11:15 PM CDT Pulse 78 08/01/2020 11:15 PM CDT Temperature 37.4 C (99.4 F) 08/01/2020 11:15 PM CDT Respiratory Rate 18 08/01/2020 11:15 PM CDT Oxygen Saturation 98% 08/01/2020 11:15 PM CDT Inhaled Oxygen Concentration - - Weight 73.7 kg (162 lb 7.7 oz) 08/01/2020 11:15 PM CDT Height 167.6 cm (5' 6 ) 08/01/2020 11:15 PM CDT Body Mass Index 26.22 08/01/2020 11:15 PM CDT Plan of Treatment Not on file Insurance [facility] Care Teams Technical Account Executive Relationship Specialty Start Date End Date Unknown, Notinfile PCP - General 02/10/24 Miscellaneous, Not In File 11/09/18
--- OUTSIDE RECORDS SUMMARY | 2024-05-21 09:34 | XMS_ITS | Clinical Summary ---
Author Organization [facility] Address [address] [place] [address] Care Team Providers Care Raw Material Planner Name Role Phone Unavailable Primary Care Provider Unavailabl e Allergies Active Allergy Reactions Criticality Noted Date Comments Gadolinium-Containing Contrast Media 08/03/2020 Medications No known medications Active Problems Problem Noted Date Diagnosed Date Swelling of face 08/03/2020 Social History Tobacco Use Types Packs/Day Years Used Date Smoking Tobacco: Never Assessed Comments Unknown Sex and Gender Information Value Date Recorded Sex Assigned at Not on file Legal Sex Female 7:11 AM PDT Gender Identity Not on file Sexual Orientation Not on file Last Filed Vital Signs Vital Sign Reading Time Taken Comments Blood Pressure 107/70 08/03/2020 2:14 PM CDT Pulse 78 08/03/2020 2:14 PM CDT Temperature - - Respiratory Rate - - Oxygen Saturation - - Inhaled Oxygen Concentration - - Weight - - Height - - Body Mass Index - - Plan of Treatment Health Maintenance Due Date Last Done Comments Meningococcal B Vaccine Aged Out No l onger eligible based on patient's age to complete this topic
--- OUTSIDE RECORDS SUMMARY | 2024-05-21 09:34 | XMS_ITS | Data Portability ---
Author Organization [facility] Address [address] [place] [address] Care Team Providers Care Independent Driver Name Role Phone BRYAN MARIE Pitch Flaker Assessment Encounter Date Assessment Date Assessment LastModified by Organization Details LastModified Time 04/28/2024 04/28/2024 I am unable to palpate any abnormalities today in her head and neck, I have discussed this with her and as her labs do not explain her symptoms, I will seek the opinion of the development geologist. With regards to the abnormal TFTS done at her quantitative analyst marketing after her recent , the repeat TSH was normal. oajao Not available 04/28/2024 12:51:55 Plan of Treatment Reminders Order Date Submit Date Provider Last Modified By Organization Details Last Modified Time Details Appointments None recorded. Lab RPR (rapid plasma reagin), serum 2024 025 AMANDA [facility], [address], [place], [address], 13:31:11 urinalysis macro (dipstick) panel, urine 2024 025 AMANDA [facility], [address], [place], [address], 5 13:31:10 CMP, serum or plasma 2024 025 AMANDA [facility], [address], [place], [address], 5 13:31:09 lipid panel, serum 2024 025 [facility], [address], [place], [address], 5 13:31:08 CBC w/ auto diff 2024 025 [facility], [address], [place], [address], 5 13:31:11 HIV 1 + 2, meaningful use set 2024 025 [facility], [address], [place], [address], 5 13:30:35 Hepatitis C IgG Ab, qual, serum 2024 025 [facility], [address], [place], [address], 5 13:31:08 vitamin D, 25-hydroxy , total, serum 2024 025 [facility], [address], [place], [address], 5 13:31:12 TSH, ultra-sens itive, serum 2024 025 [facility], [address], [place], [address], 5 13:31:10 Referral endocrinol ogy referral 2024 025 daniel Hameed, [address], [place], [address], 5 17:54:[address]/oncolog ist referral 2024 025 daniel Phillips MD, [address], [place], [address], 17:54:48 Procedures None recorded. Surgeries None recorded. 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: care instructions oajao Not available 03/11/2024 15:20:01 Labs Records ([facility]) Follow up in 4 weeks oajao Not available 03/11/2024 19:41:54 04/28/2024 [id number] swollen lymph nodes: care instructions oajao Not available 04/28/2024 12:42:22 General Intern Hematology Vitamin D US Follow up in 3 months and PRN oajao Not available 04/28/2024 12:52:04 Reason for Referral Referring Physician: Jayce Sevilla, Internal Medicine, Encounter Date: 04/28/2024 Endocrinology Referral for D isorder of thyroid gland Patient request for her abnormal TFTS done by her Pitch Flaker Referring Physician: Jayce Sevilla, Internal Medicine, Encounter Date: 04/28/2024 Results Created Date Observation Date Name Description Value Unit Range Abnormal Flag Note LastModifiedBy Organization Detail LastModifiedTime 03/13/1903/14/2024 HCV ANTIB PAUL hep C virus Ab NON REACTI VE nonrea ctive HCV antib paul alone does not diffe renti ate betwe en previ ously resol ethan infec tion and activ e infec tion. Equiv ocal and React ellis HCV antib paul resul ts shoul d be follo wed up with an HCV RNA test to suppo rt the diagn osis of activ e HCV infec tion. Not Available [facility] ([facility]) [address] [facility], [place], [address], 03/15/2024 06:47:28 03/13/19 25 03/15/2024 LIPID PANEL cholesterol, total 158 mg/dL 100-19 9 Not Available [facility] ([facility]) [address] [place], [address], 03/15/2024 06:47:28 03/13/1903/15/2024 LIPID PANEL triglyceride s 50 mg/dL 0-149 Not Available [facility] ([facility]) [address] [place], [address], 03/15/2024 06:47:28 03/13/19 25 03/15/2024 LIPID PANEL HDL cholesterol 50 mg/dL >39 Not Available [facility] ([facility]) [address] [place], [address], 03/15/2024 06:47:28 03/13/19 25 03/15/2024 LIPID PANEL VLDL cholesterol maurice 10 mg/dL 5-40 Not Available [facility] ([facility]) [address] [place], [address], 03/15/2024 06:47:28 03/13/1903/15/2024 LIPID PANEL LDL chol calc ([facility]) 98 mg/dL 0-99 Not Available [facility] ([facility]) [address] [place], [address], 03/15/2024 06:47:28 03/13/19 25 03/15/2024 COMP. METAB OLIC PANEL (14) glucose 77 mg/dL 70-99 Not Available [facility] ([facility]) [address] [place], [address], 03/15/2024 06:47:28 03/13/19 25 03/15/2024 COMP. METAB OLIC PANEL (14) BUN 11 mg/dL 6-20 Not Available [facility] ([facility]) [address] [facility], [address], 03/15/2024 06:47:28 03/13/19 25 03/15/2024 COMP. METAB OLIC PANEL (14) creatinine 0.72 mg/dL 0.57-1 .00 Not Available [facility] ([facility]) [address] [facility] [place], [address], 03/15/2024 06:47:28 03/13/19 25 03/15/2024 COMP. METAB OLIC PANEL (14) eGFR 117 mL/mi n/1.7 3 >59 Not Available [facility] ([facility]) [address] [facility], [place], [address], 03/15/2024 06:47:28 03/13/19 25 03/15/2024 COMP. METAB OLIC PANEL (14) BUN/creatini ne ratio 15 9-23 Not Available [facility] ([facility]) [address] [place], [address], 03/15/2024 06:47:28 03/13/19 25 03/15/2024 COMP. METAB OLIC PANEL (14) sodium 140 mmol/ L 134-14 4 Not Available [facility] ([facility]) [address] [facility], [address], 03/15/2024 06:47:28 03/13/19 25 03/15/2024 COMP. METAB OLIC PANEL (14) potassium 4.5 mmol/ L 3.5-5. 2 Not Available [facility] ([facility]) [address] [place], [address], 03/15/2024 06:47:28 03/13/19 25 03/15/2024 COMP. METAB OLIC PANEL (14) chloride 103 mmol/ L 96-106 Not Available [facility] ([facility]) [address] [facility], [address], 03/15/2024 06:47:28 03/13/19 25 03/15/2024 COMP. METAB OLIC PANEL (14) carbon dioxide, total 22 mmol/ L 20-29 Not Available [facility] ([facility]) [address] [facility] [place], [address], 03/15/2024 06:47:28 03/13/19 25 03/15/2024 COMP. METAB OLIC PANEL (14) calcium 10.0 mg/dL 8.7-10 .2 Not Available [facility] ([facility] [address] [place], [address], 03/15/2024 06:47:28 03/13/19 25 03/15/2024 COMP. METAB OLIC PANEL (14) protein, total 7.6 g/dL 6.0-8. 5 Not Available [facility] ([facility]) [address] [facility], [address], 03/15/2024 06:47:28 03/13/19 25 03/15/2024 COMP. METAB OLIC PANEL (14) albumin 4.5 g/dL 4.0-5. 0 Not Available [facility] ([facility]) [address] [facility], [address], 03/15/2024 06:47:28 03/13/19 25 03/15/2024 COMP. METAB OLIC PANEL (14) globulin, total 3.1 g/dL 1.5-4. 5 Not Available [facility] ([facility]) [address] [facility], [address], 03/15/2024 06:47:28 03/13/19 25 03/15/2024 COMP. METAB OLIC PANEL (14) bilirubin, total 0.3 mg/dL 0.0-1. 2 Not Available [facility] ([facility]) [address] [place], [address], 03/15/2024 06:47:28 03/13/19 25 03/15/2024 COMP. METAB OLIC PANEL (14) alkaline phosphatase 57 IU/L 44-121 Not Available [facility] ([facility]) [address] [place], [address], 03/15/2024 06:47:28 03/13/19 25 03/15/2024 COMP. METAB OLIC PANEL (14) AST (SGOT) 18 IU/L 0-40 Not Available [facility] ([facility]) [address] [place], [address], 03/15/2024 06:47:28 03/13/19 25 03/15/2024 COMP. METAB OLIC PANEL (14) ALT (SGPT) 11 IU/L 0-32 Not Available [facility] ([facility]) [address] [place], [address], 03/15/2024 06:47:28 03/13/19 25 03/14/2024 TSH RFX ON ABNOR MAL TO FREE T4 TSH 1.690 uIU/m L 0.450- 4.500 Not Available [facility] ([facility]) [address] [place], [address], 03/15/2024 06:47:29 03/13/1903/14/2024 URINA LYSIS , ROUTI NE specific gravity 1.019 1.005- 1.030 Not Available [facility] ([facility]) [address] [place], [address], 03/15/2024 06:47:29 03/13/19 25 03/14/2024 URINA LYSIS , ROUTI NE pH 7.0 5.0-7. 5 Not Available [facility] ([facility]) [address] [place], [address], 03/15/2024 06:47:29 03/13/19 25 03/14/2024 URINA LYSIS , ROUTI NE urine-color YELLOW yellow Not Available [facility] ([facility]) [address] [facility], [place], [address], 03/15/2024 06:47:29 03/13/19 25 03/14/2024 URINA LYSIS , ROUTI NE appearance CLEAR clear Not Available [facility] ([facility]) [address] [facility], [place], [address], 03/15/2024 06:47:29 03/13/1903/14/2024 URINA LYSIS , ROUTI NE WBC esterase NEGATI VE negati ve Not Available [facility] ([facility]) [address] [place], [address], 03/15/2024 06:47:29 03/13/19 25 03/14/2024 URINA LYSIS , ROUTI NE protein NEGATI VE negati ve/tra ce Not Available [facility] ([facility]) [address] [facility], [place], [address], 03/15/2024 06:47:29 03/13/19 25 03/14/2024 URINA LYSIS , ROUTI NE glucose NEGATI VE negati ve Not Available [facility] ([facility]) [address] [place], [address], 03/15/2024 06:47:29 03/13/19 25 03/14/2024 URINA LYSIS , ROUTI NE ketones NEGATI VE negati ve Not Available [facility] ([facility]) [address] [place], [address], 03/15/2024 06:47:29 03/13/19 25 03/14/2024 URINA LYSIS , ROUTI NE occult blood NEGATI VE negati ve Not Available [facility] ([facility]) [address] [facility], [place], [address], 03/15/2024 06:47:29 03/13/1903/14/2024 URINA LYSIS , ROUTI NE bilirubin NEGATI VE negati ve Not Available [facility] ([facility]) [address] [facility], [place], [address], 03/15/2024 06:47:29 03/13/1903/14/2024 URINA LYSIS , ROUTI NE urobilinogen ,semi-qn 0.2 mg/dL 0.2-1. 0 Not Available [facility] ([facility]) [address] [place], [address], 03/15/2024 06:47:29 03/13/1903/14/2024 URINA LYSIS , ROUTI NE nitrite, urine NEGATI VE negati ve Not Available [facility] ([facility]) [address] [facility], [place], [address], 03/15/2024 06:47:29 03/13/1903/14/2024 URINA LYSIS , ROUTI NE microscopic examination COMMEN T Micro scopi c not indic ated and not perfo rmed. Not Available [facility] ([facility]) [address] [place], [address], 03/15/2024 06:47:29 03/13/1903/14/2024 CBC WITH DIFFE RENTI AL/PL ATELE T WBC 6.9 x10e3 /uL 3.4-10 .8 Not Available [facility] ([facility]) [address] [place], [address], 03/15/2024 06:47:29 03/13/19 25 03/14/2024 CBC WITH DIFFE RENTI AL/PL ATELE T RBC 4.61 x10e6 /uL 3.77-5 .28 Not Available [facility] ([facility]) [address] [place], [address], 03/15/2024 06:47:29 03/13/19 25 03/14/2024 CBC WITH DIFFE RENTI AL/PL ATELE T hemoglobin 13.5 g/dL 11.1-1 5.9 Not Available [facility] ([facility]) [address] [facility], [place], [address], 03/15/2024 06:47:29 03/13/19 25 03/14/2024 CBC WITH DIFFE RENTI AL/PL ATELE T hematocrit 42.6 % 34.0-4 6.6 Not Available [facility] ([facility]) [address] [facility], [place], [address], 03/15/2024 06:47:29 03/13/19 25 03/14/2024 CBC WITH DIFFE RENTI AL/PL ATELE T MCV 92 fL 79-97 Not Available [facility] ([facility]) [address] [facility], [place], [address], 03/15/2024 06:47:29 03/13/19 25 03/14/2024 CBC WITH DIFFE RENTI AL/PL ATELE T MCH 29.3 pg 26.6-3 3.0 Not Available [facility] ([facility]) [address] [place], [address], 03/15/2024 06:47:29 03/13/1903/14/2024 CBC WITH DIFFE RENTI AL/PL ATELE T MCHC 31.7 g/dL 31.5-3 5.7 Not Available [facility] ([facility]) [address] [place], [address], 03/15/2024 06:47:29 03/13/19 25 03/14/2024 CBC WITH DIFFE RENTI AL/PL ATELE T RDW 14.2 % 11.7-1 5.4 Not Available [facility] ([facility]) [address] [place], [address], 03/15/2024 06:47:29 03/13/19 25 03/14/2024 CBC WITH DIFFE RENTI AL/PL ATELE T platelets 371 x10e3 /uL 150-45 0 Not Available [facility] ([facility]) [address] [facility], [place], [address], 03/15/2024 06:47:29 03/13/1903/14/2024 CBC WITH DIFFE RENTI AL/PL ATELE T neutrophils 55 % notest ab. Not Available [facility] ([facility]) [address] [facility], [place], [address], 03/15/2024 06:47:29 03/13/19 25 03/14/2024 CBC WITH DIFFE RENTI AL/PL ATELE T lymphs 34 % notest ab. Not Available [facility] ([facility]) [address] [facility], [place], [address], 03/15/2024 06:47:29 03/13/19 25 03/14/2024 CBC WITH DIFFE RENTI AL/PL ATELE T monocytes 8 % notest ab. Not Available [facility] ([facility]) [address] [facility], [place], [address], 03/15/2024 06:47:29 03/13/19 25 03/14/2024 CBC WITH DIFFE RENTI AL/PL ATELE T eos 2 % notest ab. Not Available [facility] ([facility]) [address] [facility], [place], [address], 03/15/2024 06:47:29 03/13/19 25 03/14/2024 CBC WITH DIFFE RENTI AL/PL ATELE T basos 1 % notest ab. Not Available [facility] ([facility]) [address] [facility], [place], [address], 03/15/2024 06:47:29 03/13/19 25 03/14/2024 CBC WITH DIFFE RENTI AL/PL ATELE T neutrophils (absolute) 3.8 x10e3 /uL 1.4-7. 0 Not Available [facility] ([facility]) [address] [place], [address], 03/15/2024 06:47:29 03/13/19 25 03/14/2024 CBC WITH DIFFE RENTI AL/PL ATELE T lymphs (absolute) 2.4 x10e3 /uL 0.7-3. 1 Not Available [facility] ([facility]) [address] [place], [address], 03/15/2024 06:47:29 03/13/1903/14/2024 CBC WITH DIFFE RENTI AL/PL ATELE T monocytes(ab solute) 0.5 x10e3 /uL 0.1-0. 9 Not Available [facility] ([facility]) [address] [facility], [place], [address], 03/15/2024 06:47:29 03/13/19 25 03/14/2024 CBC WITH DIFFE RENTI AL/PL ATELE T eos (absolute) 0.1 x10e3 /uL 0.0-0. 4 Not Available [facility] ([facility]) [address] [place], [address], 03/15/2024 06:47:29 03/13/1903/14/2024 CBC WITH DIFFE RENTI AL/PL ATELE T baso (absolute) 0.1 x10e3 /uL 0.0-0. 2 Not Available [facility] ([facility]) [address] [place], [address], 03/15/2024 06:47:29 03/13/1903/14/2024 CBC WITH DIFFE RENTI AL/PL ATELE T immature granulocytes 0 % notest ab. Not Available [facility] ([facility]) [address] [place], [address], 03/15/2024 06:47:29 03/13/19 25 03/14/2024 CBC WITH DIFFE RENTI AL/PL ATELE T immature grans (abs) 0.0 x10e3 /uL 0.0-0. 1 Not Available [facility] ([facility]) [address] [facility], [place], [address], 03/15/2024 06:47:29 03/13/1903/14/2024 RPR, RFX QN RPR/C ONFIR M TP RPR NON REACTI VE nonrea ctive Not Available [facility] ([facility]) [address] [facility], [place], [address], 03/15/2024 06:47:30 03/13/1903/14/2024 VITAM IN D, 25-HY DROXY vitamin D, 25-hydroxy 26.2 NG/mL 30.0-1 00.0 below low normal Vitam in D defic iency has been defin ed by the Insti tute of Medic ine and an Endoc rine Socie ty pract ice guide line as a level of serum 25-OH vitam in D less than 20 ng/mL (1,2) . The Endoc rine Socie ty went on to furth er defin e vitam in D insuf ficie ncy as a level betwe en 21 and 29 ng/mL (2). 1. IOM (Inst itute of Medic ine). 2009. Dieta ry refer ence blade es for calci um and D. Divine medina [place]: The Natio nal [facility] Press . 2. Sukhwinder carreon MF, Jennifer ey [place], Bist[place]a off-F errar i GALAVIZ, et al. Evalu ation , treat ment, and preve ntion of vitam in D defic iency : an Endoc rine Socie ty clini maurice pract ice guide line. JCEM. 2010; 96(7) :1911 -30. Not Available [facility] ([facility]) [address] [facility], [place], [address], 03/15/2024 06:47:30 03/13/19 25 03/14/2024 HIV AB/P2 4 AG WITH REFLE X HIV Ab/P24 Ag screen NON REACTI VE nonrea ctive HIV-1 /HIV- 2 antib odies and HIV-1 p24 antig en were NOT detec chel. There is no labor atory evide nce of HIV infec tion. HIV Negat ellis Not Available [facility] ([facility]) [address] [facility] [facility], [place], [address], 03/15/2024 06:47:30 Result Notes None recorded. Problems Name Problem SNOMED Code Status Onset Date Resolution Date Notes Provider Name and Address Organization Details Recorded Time Vaccine declined by patient [id number] Active 2024 Jayce Sevilla MD Attn: Omidedna g,[address] [facility], [place], [address], [facility] - [facility] 15:25:33 History of thyroid disorder [id number] Active 2024 Jayce Sevilla MD Attn: Toby g,[address] [facility], [place], [address], [place] - [facility] 15:27:37 Problem Notes None recorded. Procedures Surgical History Date Name Laterality Status Provider Name and Address Organization Details Recorded Time 02/25/19 03 excision of cyst of thyroid completed Jayce Sevilla MD Attn: Accounting, [address] [facility], [place], [address], [facility] - SI 03/11/2024 15:11:05 Cholecystectomy completed Clarita Cook MA [place] - [facility] 03/11/2024 14:37:50 Tonsillectomy completed Clarita Cook MA [facility] 03/11/2024 14:37:56 Imaging Results None recorded. Procedure Notes None recorded. Medical Equipment None Reported. Allergies Allergen ID Allergen Name Allergen Category Reaction Reaction Severity Criticality Documentation Date Start Date Code Code System Note Provider Name and Address Organization Details Recorded Time 429250 Iodinated contrast media (substanc e) medicatio n anaphylax is moderate Not available 03/11/2024 92977 2003 SNOMED Not Available Not Available Not Available Medications Name Sig Start Date Stop Date Status Note LastModified by Organization Details LastModified Time fluconazole 100 mg tablet 04/28 completed Not Available Not Available Not Available nystatin 100,000 unit/gram topical ointment APPLY TO THE AFFECTED AREA TWICE DAILY 04/28 completed Not Available Not Available Not Available fluconazole 150 mg tablet TAKE 1 TABLET BY MOUTH EVERY OTHER DAY FOR 14 DAYS 04/28 completed Not Available Not Available Not Available metronidazo le 500 mg tablet TAKE 1 TABLET BY MOUTH TWICE DAILY FOR 7 DAYS DIRECTED 04/28 completed Not Available Not Available Not Available omeprazole 40 mg capsule,del ayed release TAKE 1 CAPSULE BY MOUTH EVERY DAY 04/28 completed Not Available Not Available Not Available triamcinolo ne acetonide 0.1 % topical ointment APPLY THIN LAYER TOPICALLY TO THE AFFECTED AREA TWICE DAILY 04/28 completed Not Available Not Available Not Available ergocalcife rol (vitamin D2) 1,250 mcg (50,000 unit) capsule TAKE 1 CAPSULE BY MOUTH EVERY WEEK DIRECTED active Not Available Not Available No t Available metoclopram loc 10 mg tablet TAKE 1 TABLET BY MOUTH FOUR TIMES DAILY 04/28 completed Not Available Not Available Not Available active Not Available Not Avai lable Not Available Clarita 0.35 mg tablet TAKE 1 TABLET BY MOUTH EVERY DAY 04/28 completed Not Available Not Available Not Available Vitals Date Recorded Body height Body mass index (BMI) Body weight Respiratory rate Heart rate Oxygen saturation Oxygen saturation in Arterial blood by Pulse oximetry Systolic blood pressure Diastolic blood pressure Provider Name and Address Organization Details Last Updated DateTime 5 167.64 cm 24.5 kg/m2 47163.0 4 g 14 /min 74 /min 98 % 98 % 110 mm[Hg] 76 mm[Hg] DAVID Hogan - [facility] 5 14:46:26 Date Recorded Body height Body mass index (BMI) Body weight Heart rate Oxygen saturation Oxygen saturation in Arterial blood by Pulse oximetry Respiratory rate Systolic blood pressure Diastolic blood pressure Provider Name and Address Organization Details Last Updated DateTime 5 167.64 cm 24.2 kg/m2 14169.8 6 g 76 /min 99 % 99 % 16 /min 104 mm[Hg] 70 mm[Hg] DAVID Hogan [facility] 12:12:15 Social History Question Answer Notes LastModified by Organizat ion Details LastModified Time Tobacco Smoking Status Never Smoker Clarita DAVID Cook, [place] - [facility] 03/11/2024 14:37:41 What Is Your Level Of Alcohol Consumption? None Information not available 03/11/2024 Are You Blind Or Do You Have Difficulty Seeing? No Information n ot available 03/11/2024 What Is Your Level Of Caffeine Consumption? Occasional Information not available 03/11/2024 In The 14 Days Before Symptom Onset, Have You Had Close Contact With A Laboratory-confirm ed COVID-19 While That Case Was Ill? No Information n ot available 03/11/2024 In The 14 Days Before Symptom Onset, Have You Had Close Contact With A Person Who Is Under Investigation For COVID-19 While That Person Was Ill? No Information not available 03/11/2024 Have You Been To An Area Known To Be High Risk For COVID-19? No Information not available 03/11/2024 Are You Currently Employed? Yes Information not available 03/11/2024 Are You Deaf Or Do You Have Serious Difficulty Hearing? No Information not available 03/11/2024 What Type Of Diet Are You Following? REGULAR Information n ot available 03/11/2024 Are There Any Guns Present In Your Home? No Information not available 03/11/2024 What Was The Date Of Your Most Recent Tobacco Screening? 04/28/2024 Information not available 04/28/2024 What Is Your Relationship Status? Single Information not available 03/11/2024 Do You Use Your Seat Belt Or Car Seat Routinely? Yes Information not available 03/11/2024 Do You Have Smoke And Carbon Monoxide Detectors In Your Home? Yes Information not available 03/11/2024 Do You Feel Stressed (tense, Restless, Nervous, Or Anxious, Or Unable To Sleep At Night)? [id number] Information not available 03/11/2024 Do You Use Any Illicit Or Recreational Drugs? No Information not available 03/11/2024 Do You Use Sunscreen Routinely? Yes Information not available 03/11/2024 Has Tobacco Cessation Counseling Been Provided? No Information not available 03/11/2024 Do You Or Have You Ever Used Any Other Forms Of Tobacco Or Nicotine? No Information not available 03/11/2024 Sex: Unknown Functional Status Question Answer Note LastModified by Organization D etails LastModified Time Are you able to care for yourself? Yes Information n ot available 03/11/2024 What is your exercise level? Heavy Information not available 03/11/2024 Mental Status None recorded. Family History Relationship Description Onset Age of this Age Resolved Age Notes LastModified by Organization Details LastModified Time Paternal Grandmother Family history of breast cancer [email or web address] Not available 2024 14:40:53 Mother Malignant tumor of cervix hdoverma Not available 2024 14:41:05 Medical History Condition Response Coronary Artery Disease N Other N High Blood Pressure N Atrial Fibrillation N Kidney or Bladder Problems N Thyroid Problems N GI Problems N Depression N COPD N Blood Clots N Have you had a mammogram in the last yea r? N Skin Problems N Anemia N Heart Attack (ME) N Anxiety Disorder N Diabetes N Muscle, Joint, or Bone Problems N Seizures/Epilepsy N Have you had a colonoscopy in the last 1 0 years? N Acid Reflux (GERD) N Cancer N Stroke N Asthma N Allergies N Have you had a PSA blood test in the las t year? N High Cholesterol N Hepatitis N Liver Disease N Headaches N Heart Failure N Osteoporosis N Gynecological History Statement/Question Response Current Control Method None Obstetrics History GPAL:G 3 P 0 0 0 0 Immunizations Vaccine Type Date Status Note Provider Nam e and Address Organization Details Recorded Time Hib, unspecified formulation 9 completed Clarita [place], [place] [facility] 03/11/2024 14:29:40 Hib, unspecified formulation 8 completed Clarita [place] [facility] 03/11/2024 14:29:40 Hib, unspecified formulation 7 completed Clarita [place] [facility] 03/11/2024 14:29:40 Hib, unspecified formulation 7 completed Clarita Ermine, [place] [facility] 03/11/2024 14:29:40 IPV 3 completed Clarita Ermine, [place] [facility] 03/11/2024 14:29:40 IPV 2 completed Clarita [place], [place] [facility] 03/11/2024 14:29:40 IPV 8 completed Clarita Erm[place], [place] [facility] 03/11/2024 14:29:40 MMR 3 completed Clarita Erm[place], [place] [facility] 03/11/2024 14:29:40 MMR 2 completed Clarita Erm[place], [place] [facility] 03/11/2024 14:29:40 MMR 8 completed Clarita Erm[place], [place] [facility] 03/11/2024 14:29:40 Tdap 9 completed Clarita Erm[place], [place] [facility] 03/11/2024 14:29:40 varicella 9 completed Clarita Joyce, [place] [facility] 03/11/2024 14:29:40 varicella 8 completed Clarita Erm[place], [place] [facility] 03/11/2024 14:29:40 OPV 8 completed Clarita [place], [place] [facility] 03/11/2024 14:29:40 OPV 8 completed Clarita Ermine, [place] [facility] 03/11/2024 14:29:40 influenza, split (incl. purified surface antigen) 1 completed Clarita Erm[place], [place] [facility] 03/11/2024 14:29:40 influenza, split (incl. purified surface antigen) 2 completed Clarita Erm[place], [place] [facility] 03/11/2024 14:29:40 Hep B, adolescent or pediatric 8 completed Clarita Erm[place], [place] [facility] 03/11/2024 14:29:40 Hep B, adolescent or pediatric 7 completed Clarita [place], [place] [facility] 03/11/2024 14:29:40 Hep B, adolescent or pediatric 7 completed Clarita [place], [place] [facility] 03/11/2024 14:29:40 Hep A, ped/adol, 2 dose 1 completed Clarita Erm[place], [place] [facility] 03/11/2024 14:29:40 Hep A, pediatric, unspecified formulation 9 completed Clarita Erm[place], [place] [facility] 03/11/2024 14:29:40 Hib (HbOC) 8 completed Clarita [place], [place] [facility] 03/11/2024 14:29:40 Hib (HbOC) 8 completed Clarita Erm[place], [place] [facility] 03/11/2024 14:29:40 meningococcal MCV4P 1 completed Clarita Erm[place], [place] [facility] 03/11/2024 14:29:40 DTaP 8 completed Clarita [place], [place] [facility] 03/11/2024 14:29:40 DTaP 9 completed Clarita Erm[place], [place] [facility] 03/11/2024 14:29:40 DTaP 8 completed Clarita Ermine, [place] [facility] 03/11/2024 14:29:40 DTaP 3 completed Clarita Ermine, [place] [facility] 03/11/2024 14:29:41 DTaP 8 completed Clarita Erm[place], [place] [facility] 03/11/2024 14:29:41 DTaP 2 completed Clarita Ermine, [place] [facility] 03/11/2024 14:29:41 Past Encounters Encounter ID Performer Location Encounter Start Date Encounter Closed Date Diagnosis/Indication Diagnosis SNOMED-CT Code Diagnosis ICD10 Code Diagnosis Note [id number] MD Сергей Perez (Adult Med) [address] [place] [address] 03/11/2024 14:18:33 04/04/2024 09:40:16 General examination of patient 108964272 Z00.01 History of thyroid disorder 429338595 Z86.39 Loss of hair 912691003 L 65.9 Vaccine de clined by patient 9850583908 02 Z28.21 [id number] Jayce Sevilla MD [facility] (Adult Med) [address] [place] [address] 04/28/2024 12:00:51 04/29/2024 16:10:48 Vitamin D deficiency 42162187 E55.9 Lymphadenopathy 88314119 R59.0 Disorder o f thyroid gland 45116412 E07.9 Health Concerns Section Related Observation LastModified by Organization Detai ls LastModified Time None Recorded Concern Status LastModified by Organization Details LastModified Time None Recorded Advance Directives Directive None Recorded Payers Encounter Date Sequence Insurance Name Policy Number Policy Coker Covered Member ID Coker Member ID Guarantor Name 03/11/2024 1 *SELF PAY* Fallon Antunez 03/11/2024 1 [facility] (MEDICAID HMO) [id number] [facility] [id number] Lacy Tulio 04/28/2024 1 [facility] (MEDICAID HMO) [id number] [facility] [place] [id number] [facility] Notes Date Note Type Note Provider Name and Address Organization Details Recorded Time 03/11/2024 text/html I am 29, I thought it was time for me to start seeing a doctor My Thyroid is killing itself I have this knot on the back of my head 29 y/o WF with a PMHX. 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 She complains of fluctuations in her weight, hair loss, dry skin and she had abnormal TFTS done ~ 2 months after her recent . She also reports a swollen nodule around the right Mastoid bone. PCP ?Ob Dr Ricarda Sevilla MD Attn: [address] [place], [address], [facility] 03/11/2024 19:42:45 04/28/2024 text/html I needed to see somebody for my Thyroid, my Thyroid was basically eating itself Knots on the back of my head Ms Antunez complains of recurrent painful lesions behind her ear and around her neck, she has none today and they are not associated with a URI or an illness. She feels perfectly fine, there is no report of a fever or similar lesions elsewhere. She also was told by her quantitative analyst marketing that she would need to be seen by a specialist for her abnormal TFTS. Jayce Sevilla MD Attn: [address] [place], [address], [facility] 04/28/2024 12:52:21 OBGyn Episode No OBEpisode recorded.
--- OUTSIDE RECORDS SUMMARY | 2024-05-21 09:34 | XMS_ITS | Clinical Summary ---
Author Organization [facility] Address [address] [place] [address] Care Team Providers Care Maternity Floor Supervisor Name Role Phone Miscellaneous, Not In File Unavailable Unava ilable Unknown, Notinfile Primary Care Provider Unavail able Allergies Active Allergy Reactions Criticality Noted Date [...] 11/04/2013 Cervicalgia 05/14/2013 Eating disorder, unspecified 05/06/2012 Encounters Date Type Department Care Team Description 03/16/2024 Telephone [facility] Primary Care at [address] [address] Danielle Soni NP from Last 3 Months Immunizations Immunization Administration Dates Next Due Influenza, Unspecified 03/10/2024(Deferr ed: Patient Refused),12/02/2023(Deferred: Patient Refused) Medical History Medical History Date Comments Encounter for other general counseling and advice on contraception General counseling and adv ice for contraceptive management - (Added by TW Conv) Social History Tobacco Use Types Packs/Day Years Used Date Smoking Tobacco: Never Comments No Sex and Gender Information Value Date Recorded Sex Assigned at Not on file 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 [employer] Gender Identity Not on file Sexual Orientation Not on file Obstetrics History Para Term AB IAB SAB Ectopic Multiple Livin g Live Births 4 2 2 1 1 1 1 Date Outcome GA Total Labor Labor/2nd/3rd Weight Sex Type Anes PTL Bhavana A1 A5 Name Clin Term Vag-S pont 2015 Term 39w 0d 3.43 kg (7 lb 9 oz) Vag-S pont Living 2016 SAB Last Filed Vital Signs Vital Sign Reading [...] Plan of Treatment Not on file Insurance [facility] Care Teams Maternity Floor Supervisor Relationship Specialty Start Date End Date Unknown, Notinfile PCP - General 02/10/24 Miscellaneous, Not In File 11/09/18
--- OUTSIDE RECORDS SUMMARY | 2024-05-21 09:34 | XMS_ITS | Encounter Summary ---
Author Organization [facility] Healthcare Address [address] [place] [address] Care Team Providers Care Forensics Team Director Name Role Phone Miscellaneous, Not In File Unavailable Unava ilable Unknown, Notinfile Primary Care Provider Unavail able Encounter Details Date Type Department Care Team (Late st Contact Info) Description 03/16/2024 Telephone [facility] Primary Care at [place] [address] [place] [address] [address] [place] [address] Danielle Soni, SALES CONSULTING DIRECTOR [address] [facility] [address] [place] [address] Social History Tobacco Use Types Packs/Day Years Used Date Smoking Tobacco: Never Comments No Sex and Gender Information Value Date Recorded Sex Assigned at Not on file 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
--- OUTSIDE RECORDS SUMMARY | 2024-05-21 09:34 | XMS_ITS | Clinical Summary ---
Author Organization [facility] Address [address] [place] [address] Care Team Providers Care Environmental Engineer Name Role Phone Unavailable Primary Care Provider Unavailabl e Source Comments [facility],non-owned Affiliates and Associated Physician Practices is amultiple site organization consisting of ambulatory clinics and hospital sitesin [place], [place], [place] and [place]. This disclosure is being madepursuant to the Care Everywhere program and may not contain all information available regarding this patient. Last updated 17.[facility] Allergies No known active allergies Active Problems Problem Noted Date Diagnosed Date Supervision of high-risk of young veronica igravida 03/03/2019 Von Willebrand disease 03/03/2019 Social History Tobacco Use Types Packs/Day Years Used Date Smoking Tobacco: Never Assessed Sex and Gender Information Value Date Recorded Sex Assigned at Not on file Gender Identity Not on file Sexual Orientation Not on file Last Filed Vital Signs Vital Sign Reading Time Taken Comments Blood Pressure 130/62 02/17/2016 12:45 AM SIDE BOSS Pulse 84 02/17/2016 12:45 AM SIDE BOSS Temperature 36.8 C (98.2 F) 02/16/2016 7:53 PM SIDE BOSS Respiratory Rate 12 02/17/2016 12:45 AM SIDE BOSS Oxygen Saturation 96% 02/17/2016 12:45 AM SIDE BOSS Inhaled Oxygen Concentration - - Weight 61.2 kg (135 lb) 02/16/2016 7:53 PM SIDE BOSS Height 167.6 cm (5' 6 ) 02/16/2016 7:53 PM SIDE BOSS Body Mass Index 21.79 02/16/2016 7:53 PM SIDE BOSS Plan of Treatment Health Maintenance Due Date Last Done Comments PAP SMEAR 1997 DTAP/TDAP/TD VACCINES (1 - Tdap) 01/04/2016 HEPATITIS B VACCINE (1 of 3 - 19+ 3-dose series) 01/04/2016 COVID-19 VACCINE (1 - 2023-2 5 season) 2023 INFLUENZA VACCINE (#1) 2023 DEPRESSION SCREENING 02/26/2024 ZOSTER VACCINE (1 of 2) 2047 HEPATITIS C SCREENING Completed 01/14/2019 HIV SCREENING Completed 01/14/2019 HIB VACCINE Aged Out No longer eligi ble based on patient's age to complete this topic HPV VACCINE Aged Out No longer eligi ble based on patient's age to complete this topic MENINGOCOCCAL (Group B) VACC INE SHARED DECISION-MAKING Aged Out No longer eligibl e based on patient's age to complete this topic MENINGOCOCCAL GROUPS A/C/Y/W VACCINE Aged Out No longer eligible b ased on patient's age to complete this topic PNEUMOCOCCAL VACCINE Aged Out No long er eligible based on patient's age to complete this topic TULIO,POONAM Personal/Family [address] [place] [address] TULIOPOONAM Personal/Family [address] [place] [address] Tulio Matthewzurdo Mcconnell Personal/Family Self [address] [place] [address]
--- OUTSIDE RECORDS SUMMARY | 2024-05-21 09:34 | XMS_ITS | Data Portability ---
Author Organization [facility] [place] Address [address] [place] [address] [place] [address] Assessment No assessment recorded. Plan of Treatment Reminders Order Date Submit Date Provider Last Modified By Organization Details Last Modified Time Details Appointments None recorded. Lab TSH, serum or plasma 2023 024 [facility] (Lab), [address], [place], [address], 4 06:01:14 T4, free, serum 2023 024 [facility] (Lab), [address], [place], [address], 4 06:01:15 thyroglobu vincent Ab, serum 2023 024 [facility] (Lab), [address] [place], [address], 4 06:01:15 Referral None recorded. Procedures None recorded. Surgeries None recorded. Imaging US, pelvis 2023 024 [email or web address] [place], [address], [address], [place], [address], 4 15:16:40 US, transvagin al 2023 024 [email or web address] [place], [address], [place], [address], 4 15:16:40 US, pelvis, complete 2023 024 [email or web address] [place] [address] [place] [address], [place], [address], 4 11:28:44 non-stress test 2023 024 [email or web address] [place], [address], [place], [address], 4 04:57:00 US, obstetric, follow-up 2023 [address], [address], [place], [address], 4 20:40:00 US, obstetric, biophysica l profile + non-stress test 2023 [address], [address], [place], [address], 4 20:40:00 US, doppler, umbilical artery velocimetr y 2023 [address], [address], [place], [address], 4 20:40:00 Medication Orders Nicole 0.35 mg tablet 2023 024 [facility] #[id number], [address], [place], [place], [id number], 4 11:16:58 Diflucan 150 mg tablet 2023 024 [facility] #[id number], [address], [place], [place], [id number], 4 11:04:57 Patient TargetsNo targets recorded. Patient InstructionsNo instructions recorded. Reason for Referral None Reported. Results Created Date Observation Date Name Description Value Unit Range Abnormal Flag Note LastModifiedBy Organization Detail LastModifiedTime 10/23/19 24 10/23/2023 TSH TSH 0.01 uIU/m L 0.30-5 [address] [facility] (Lab) [address], [place], [address], 10/24/2023 06:01:14 10/23/19 24 10/23/2023 T4 FREE T4, free 1.26 NG/dL 0.60-1 .40 This assay is susce ptibl e to inter ferfelipa ce from high level s of bioti n which may false ly eleva te resul ts. Shadi e nicolas late with clini maurice findi ngs. Not Available [facility] (Lab) [address], [place], [address], 10/24/2023 06:01:15 10/23/19 24 10/23/2023 THYRO ID ANTIB PAUL PANEL thyroglobuli n antibody 116.6 IU/mL <=3.9 high Not Available [facility] (Lab) [address], [place], [address], 10/24/2023 06:01:15 10/23/19 24 10/23/2023 THYRO ID ANTIB PAUL PANEL thyroperoxid ase antibodies 109.6 IU/mL 0.0-9. 0 high This assay was perfo rmed using Beckm an Coult er reage nts and test kits. Value s obtai kaden with other assay metho ds or kits canno t be used inter jennyfer hernandez . Not Available [facility] (Lab) [address], [place], [address], 10/24/2023 06:01:15 07/04/1907/04/2023 non-s tress test No observ ation record ed. [email or web address] [place] [address], [place], [address], 07/04/2023 12:26:41 07/04/19 24 07/04/2023 US, obste tric, bioph ysica l profi le + non-s tress test No observ ation record ed. [email or web address] [place] [address], [place], [address], 07/04/2023 13:49:47 07/04/19 24 07/04/2023 US, doppl er, umbil ical arter y veloc imetr y No observ ation record ed. [email or web address] [place] [address], [place], [address], 07/04/2023 13:49:32 07/04/19 24 07/04/2023 US, obste tric, bioph ysica l profi le + non-s tress test No observ ation record ed. [email or web address] [address], [place], [address], 07/04/2023 20:45:08 07/11/19 24 07/11/2023 US, obste tric, follo w-up No observ ation record ed. [facility] [address], [place], [address], 07/11/2023 12:18:26 07/11/19 24 07/11/2023 US, obste tric, bioph ysica l profi le + non-s tress test No observ ation record ed. [facility] [address], [place], [address], 07/11/2023 12:18:37 07/11/19 24 07/11/2023 US, doppl er, umbil ical arter y veloc imetr y No observ ation record ed. [facility] [address], [place], [address], 07/11/2023 12:18:49 07/11/19 24 07/11/2023 non-s tress test No observ ation record ed. [email or web address] [place] [address], [place], [address], 07/11/2023 12:10:32 07/11/19 24 07/11/2023 US, obste tric, follo w-up No observ ation record ed. AMANDA [address], [place], [address], 07/23/2023 09:23:09 07/18/19 24 07/18/2023 US, obste tric, bioph ysica l profi le + non-s tress test No observ ation record ed. [email or web address] [place] [address], [place], [address], 07/18/2023 13:14:00 07/18/19 24 07/18/2023 US, doppl er, umbil ical arter y veloc imetr y No observ ation record ed. [email or web address] [place] [address], [place], [address], 07/18/2023 13:13:47 07/18/19 24 08/06/2023 non-s tress test No observ ation record ed. [email or web address] [place] [address], [place], [address], 08/06/2023 17:51:17 07/18/19 24 07/18/2023 US, obste tric, bioph ysica l profi le + non-s tress test No observ ation record ed. [email or web address] [address], [place], [address], 07/18/2023 14:52:40 07/25/19 24 07/25/2023 US, obste tric, bioph ysica l profi le + non-s tress test No observ ation record ed. [email or web address] [place] [address], [place], [address], 07/25/2023 12:00:44 07/25/19 24 07/25/2023 US, doppl er, umbil ical arter y veloc imetr y No observ ation record ed. [email or web address] [place] [address], [place], [address], 07/25/2023 12:00:34 07/25/19 24 07/25/2023 US, obste tric, bioph ysica l profi le + non-s tress test No observ ation record ed. AMANDA [address] [facility], [place], [address], 08/01/2023 10:46:07 07/25/19 24 07/25/2023 non-s tress test No observ ation record ed. [email or web address] [place] [address], [place], [address], 07/25/2023 21:43:03 08/01/19 24 08/01/2023 non-s tress test No observ ation record ed. [email or web address] [place] [address], [place], [address], 08/01/2023 12:24:20 08/01/19 24 08/01/2023 US, obste tric, follo w-up No observ ation record ed. [facility] [address], [place], [address], 08/01/2023 16:43:52 08/01/19 24 08/01/2023 US, obste tric, bioph ysica l profi le + non-s tress test No observ ation record ed. [facility] [address], [place], [address], 08/01/2023 16:44:04 08/01/19 24 08/01/2023 US, doppl er, umbil ical arter y veloc imetr y No observ ation record ed. [email or web address] [place] [address], [place], [address], 08/01/2023 16:44:16 08/01/19 24 08/01/2023 US, obste tric, follo w-up No observ ation record ed. AMANDA [address], [place], [address], 08/02/2023 10:54:51 10/24/19 24 10/24/2023 US, pelvi s No observ ation record ed. [email or web address] [place] [address], [place], [address], 10/24/2023 15:55:00 10/24/19 24 10/24/2023 US, trans vagin al No observ ation record ed. [email or web address] [place] [address], [place], [address], 10/24/2023 15:55:12 10/24/19 24 10/24/2023 US, pelvi s No observ ation record ed. [email or web address] [address], [place], [address], 10/25/2023 17:17:40 Result Notes None recorded. Problems Name Problem SNOMED Code Status Onset Date Resolution Date Notes Provider Name and Address Organization Details Recorded Time Hypoglyc emia 403247201 Completed episodic hypoglyc emia symptoms diaphore sis, tremorou s, panic Erica wong, [facility] 4 12:33:00 Low lying placenta 163462266 Completed 04/24/2023 1.5cm to os resolved Erica wong, [facility] 4 12:33:00 Abnormal cervical Papanico laou smear 112486499 Completed NEEDS COLPOSCO PY AFTER PREGNANC Y- abnormal colpo at 20 weeks Graciesierra tucsonzurdo [facility] 4 12:33:00 Placenta circumva llata 5221575 [facility] 4 12:33:00 Human papillom a virus infectio n 582393198 Active 2023 Marian Abdi [facility] 4 19:22:24 History of abnormal cervical Papanico laou smear 171259851 Active 2023 5 [email or web address] 02/28/2023 ascus HPV high risk Marian Abdi [facility] 4 19:23:11 Past pregnanc y history of small for gestatio nal age baby 221991843 Completed [facility] 4 12:33:00 Notes:Encounter for antenata l screening of mother Recorded Elsewhere: No Location: [facility] Source: EHR Chronic: N Practice ID: [id number] Billable Time: 09:45:00 AM Encounter for screening of mother Practice ID: [id number] Encounter for screening of mother Recorded Elsewhere: No Location: [facility] Source: EHR Chronic: N Practice ID: [id number] Billable Time: 10:00:00 AM Encounter for screening of mother Practice ID: [id number] Problem Notes None recorded. Procedures Surgical History Date Name Laterality Status Provider Name and Address Organization Details Recorded Time 024 Colposcopy completed Arnaldo Chowdary MD [address], [place], [address], [facility] 04/08/2023 17:34:33 024 Colposcopy completed Rona Lee [facility] 04/08/2023 16:48:32 024 Date of Last Pap Smear completed Marie Barakat [facility] 05/22/2023 17:32:23 009 cholecystectomy completed Marianbrunilda Abdi [facility] 05/31/2023 19:19:36 005 incision of thyroid completed Marianbrunilda Abdi [facility] 05/31/2023 19:19:06 004 incision of thyroid completed [facility] 05/31/2023 19:18:43 002 Tonsillectomy completed [facility] 05/31/2023 19:17:53 Imaging Results Imaging Date Name Status LastModified by Organization Details LastModified Time 07/04/2023 non-stress test completed [address], [place], [address], 07/04/2023 12:26:41 07/04/2023 US, obstetric, biophysical profile + non-stress test completed [address], [place], [address], 07/04/2023 13:49:47 07/04/2023 US, doppler, umbilical artery velocimetry completed [address], [place], [address], 07/04/2023 13:49:32 07/04/2023 US, obstetric, biophysical profile + non-stress test completed [email or web address] [address], [place], [address], 07/04/2023 20:45:08 07/11/2023 US, obstetric, follow-up completed [facility] [address], [place], [address], 07/11/2023 12:18:26 07/11/2023 US, obstetric, biophysical profile + non-stress test completed [facility] [address], [place], [address], 07/11/2023 12:18:37 07/11/2023 US, doppler, umbilical artery velocimetry completed [facility] [address], [place], [address], 07/11/2023 12:18:49 07/11/2023 non-stress test completed [address], [place], [address], 07/11/2023 12:10:32 07/11/2023 US, obstetric, follow-up completed AMANDA [address], [place], [address], 07/23/2023 09:23:09 07/18/2023 US, obstetric, biophysical profile + non-stress test completed [address], [place], [address], 07/18/2023 13:14:00 07/18/2023 US, doppler, umbilical artery velocimetry completed [address], [place], [address], 07/18/2023 13:13:47 08/06/2023 non-stress test completed [email or web address], [place], [address], 08/06/2023 17:51:17 07/18/2023 US, obstetric, biophysical profile + non-stress test completed [email or web address] [address], [place], [address], 07/18/2023 14:52:40 07/25/2023 US, obstetric, biophysical profile + non-stress test completed [address], [place], [address], 07/25/2023 12:00:44 07/25/2023 US, doppler, umbilical artery velocimetry completed [address], [place], [address], 07/25/2023 12:00:34 07/25/2023 US, obstetric, biophysical profile + non-stress test completed AMANDA [address], [place], [address], 08/01/2023 10:46:07 07/25/2023 non-stress test completed [address], [place], [address], 07/25/2023 21:43:03 08/01/2023 non-stress test completed [address], [place], [address], 08/01/2023 12:24:20 08/01/2023 US, obstetric, follow-up completed [facility] [address], [place], [address], 08/01/2023 16:43:52 08/01/2023 US, obstetric, biophysical profile + non-stress test completed [facility] [address], [place], [address], 08/01/2023 16:44:04 08/01/2023 US, doppler, umbilical artery velocimetry completed [facility] [address], [place], [address], 08/01/2023 16:44:16 08/01/2023 US, obstetric, follow-up completed AMANDA [address], [place], [address], 08/02/2023 10:54:51 10/24/2023 US, pelvis completed [email or web address] [place] [address], [place], [address], 10/24/2023 15:55:00 10/24/2023 US, transvaginal [email or web address] [facility] [address], [place], [address], 10/24/2023 15:55:12 10/24/2023 US, pelvis completed [email or web address] [address], [place], [address], 10/25/2023 17:17:40 Procedure Notes None recorded. Medical Equipment None Reported. Allergies Allergen ID Allergen Name Allergen Category Reaction Reaction Severity Criticality Documentation Date Start Date Code Code System Note Provider Name and Address Organization Details Recorded Time 56107 Iodinated contrast media (substanc e) medicatio n Not available Not available Not available 02/28/2023 51419 2004 SNOMED Rona Rosa [facility] 10:49:11 Medications Name Sig Start Date Stop Date Status Note LastModified by Organization Details LastModified Time nystatin 100,000 unit/gram topical ointment APPLY TO THE AFFECTED AREA(S) BY TOPICAL ROUTE 2 TIMES PER DAY 05/29 completed Not Available Not Available Not Available Diflucan 150 mg tablet Take 1 tablet every other day by oral route. 05/29 completed Not Available Not Available Not Available omeprazol e 40 mg capsule,d elayed release Take 1 capsule every day by oral route. 2023 active Not Available Not Available Not Avai lable Reglan 10 mg tablet Take 1 tablet 4 times a day by oral route. 10/22 completed Not Available Not Available Not Available Macrobid 100 mg capsule take 1 capsule by oral route every 12 hours with food 02/28 completed Prescrib ed Elsewher e: No Locat ion: [facility] M odify By: [email or web address] Encount er DateTime : 08/15/19 16 02:00:00 PM Not Available Not Available Not Available nystatin- triamcino lone 100,000 unit/gram -0.1 % topical ointment APPLY TO THE AFFECTED AREA(S) BY TOPICAL ROUTE 2 TIMES PER DAY 05/29 completed Not Available Not Available Not Available Diflucan 100 mg tablet Take 2 tablets PO on day 1. Then take 1 tablet daily until prescrip tion is finished . 2023 active Not Available Not Available Not Avai lable Flagyl 500 mg tablet Take 1 tablet twice a day by oral route as directed for 7 days. 05/29 completed Not Available Not Available Not Available clotrimaz ole-betam ethasone 1 %-0.05 % topical cream 05/29 completed Not Available Not Available Not Available nystatin- triamcino lone 100,000 unit/g-0. 1 % topical cream APPLY TO THE AFFECTED AREA(S) BY TOPICAL ROUTE 2 TIMES PER DAY IN THE MORNING AND EVENING 05/29 completed Not Available Not Available Not Available Vitamin D2 1,250 mcg (50,000 unit) capsule take 1 capsule by oral route every week 02/28 completed Prescrib ed Elsewher e: No Locat ion: [facility] odify By: [email or web address] espinoza DateTime : 03/22/19 03:46:07 PM Not Available Not Available Not Available Loestrin Fe 1.5/30 (28-Day) 1.5 mg-30 mcg (21)/75 mg (7) tablet Take 1 tablet every day by oral route. 02/28 completed Not Available Not Available Not Available buspirone 15 mg tablet take 1 tablet by oral route 2 times every day 09/14 completed Prescrib ed Elsewher e: No Locat ion: [facility] odify [facility] DateTime : 01/20/20 10:30:00 AM Not Available Not Available Not Available Lexapro 10 mg tablet take 1 tablet by oral route every day 02/28 completed Prescrib ed Elsewher e: No Locat ion: [facility] M odify By: [email or web address] Encount er DateTime : 08/15/19 16 02:00:00 PM Not Available Not Available Not Available Nicole 0.35 mg tablet Take 1 tablet every day by oral route. 2023 active Not Available Not Available Not Avai lable Vitamin active Not Available Not Available Not Available CEASAR (28) 3 mg-0.02 mg tablet take 1 tablet by oral route every day 11/05 completed Prescrib ed Elsewher e: No Locat ion: [facility] M odify By: [email or web address] En counter DateTime : 10/22/19 13 11:00:00 AM Not Available Not Available Not Available Vitals Date Recorded Body height Body mass index (BMI) Body weight Systolic blood pressure Diastolic blood pressure Provider Name and Address Organization Details Last Updated DateTime 08/01/2023 167.64 cm 28.1 kg/m2 08253.07 238 g 111 mm[Hg] 74 mm[Hg] Daria Arriola [facility] 4 12:12:56 Date Recorded Body height Body mass index (BMI) Body weight Systolic blood pressure Diastolic blood pressure Provider Name and Address Organization Details Last Updated DateTime 10/23/2023 167.64 cm 25.3 kg/m2 12515 g 119 mm[Hg] 84 mm[Hg] Marian Abdi [facility] 4 16:18:57 Date Recorded Body height Body mass index (BMI) Body weight Systolic blood pressure Diastolic blood pressure Provider Name and Address Organization Details Last Updated DateTime 11/16/2023 167.64 cm 25 kg/m2 95512.82 g 121 mm[Hg] 78 mm[Hg] Marie Barakat [facility] 4 11:04:14 Social History Question Answer Notes LastModified by Organizat ion Details LastModified Time Tobacco Smoking Status Unknown If Ever Smoked Marian Abdi [facility] 10/23/2023 16:20:10 What Is Your Level Of Alcohol Consumption? Occasional [email or web address] Information not available 10/23/2023 Are You Blind Or Do You Have Difficulty Seeing? No [email or web address] Information not available 06/20/2023 What Is Your Level Of Caffeine Consumption? Occasional [email or web address] Information not available 10/23/2023 In The 14 Days Before Symptom Onset, Have You Had Close Contact With A Laboratory-confir med COVID-19 While That Case Was Ill? No [email or web address] Information not available 06/20/2023 In The 14 Days Before Symptom Onset, Have You Had Close Contact With A Person Who Is Under Investigation For COVID-19 While That Person Was Ill? No Information not available 06/20/2023 Have You Been To An Area Known To Be High Risk For COVID-19? No [email or web address] Information not available 06/20/2023 Are You Deaf Or Do You Have Serious Difficulty Hearing? No [email or web address] Information not available 06/20/2023 Do You Use Your Seat Belt Or Car Seat Routinely? Yes [email or web address] Information not available 06/20/2023 Are You Sexually Active? Yes Information not available 06/20/2023 Do You Have Smoke And Carbon Monoxide Detectors In Your Home? Yes [email or web address] Information not available 06/20/2023 Do You Use Any Illicit Or Recreational Drugs? No [email or web address] Information not available 06/20/2023 Do You Use Sunscreen Routinely? Yes Information not available 06/20/2023 Has Tobacco Cessation Counseling Been Provided? No [email or web address] Information not available 10/23/2023 Do You Or Have You Ever Used Any Other Forms Of Tobacco Or Nicotine? No [email or web address] Information not available 10/23/2023 Sex: Unknown Functional Status Question Answer Note LastModified by Organizat ion Details LastModified Time Do you have difficulty walking or climbing stairs? No [email or web address] Information not available 06/20/2023 Are you able to walk? YESWOREST [email or web address] Information not available 06/20/2023 Are you able to care for yourself? Yes [email or web address] Information not available 06/20/2023 Do you have difficulty dressing or bathing? No [email or web address] Information not available 06/20/2023 Mental Status None recorded. Family History Relationship Description Onset Age of this Age Resolved Age Notes LastModified by Organization Details LastModified Time Maternal Grandmother Asthma [email or web address] Not available 08/26 10:29:04 Maternal Grandmother Malignant tumor of breast [email or web address] Not available 2022 10:29:16 Maternal Grandmother Diabetes mellitus [email or web address] Not available 2022 10:30:05 Maternal Grandmother Hypertensive disorder [email or web address] Not available 2022 10:30:54 Mother Malignant tumor of cervix [email or web address] Not available 2022 10:29:30 Mother Hypertensive disorder [email or web address] Not available 2022 10:30:54 Mother Malignant tumor of ovary [email or web address] Not available 2022 10:31:06 Maternal Aunt Malignant tumor of cervix [email or web address] Not available 2022 10:29:30 Maternal Aunt Diabetes mellitus [email or web address] Not available 2022 10:30:05 Maternal Aunt Cyst of ovary [email or web address] Not available 2022 10:31:17 Father Diabetes mellitus [email or web address] Not available 2022 10:30:05 Father Hypertensive disorder [email or web address] Not available 2022 10:30:54 Maternal Grandfather Diabetes mellitus [email or web address] Not available 2022 10:30:05 Maternal Grandfather Hypertensive disorder [email or web address] Not available 2022 10:30:54 Maternal Uncle Diabetes mellitus [email or web address] Not available 2022 10:30:05 Maternal Uncle Genetic disorder carrier [email or web address] Not available 2022 10:30:23 Medical History Condition Response Allergies (Food, seasonal, environmental ) N Other N Breast Cancer N Drug/Latex Allergies/Reactions Y Blood Transfusion N Dermatologic Disorders N Lung Disease N Defects or Inherited Disease N Breast Problem N Gestational Diabetes N Hematologic disorders N Anesthesia Complications N History of STI Y Deep Vein Thrombosis N Polycystic ovary syndrome N Anxiety Disorder Y Autoimmune disease N Arthritis N Infertility N Polyps N Acid Reflux (GERD) Y History of abnormal pap Y Cancer N Stroke N Varicosities N Neurologic/Epilepsy N Endometriosis N High Cholesterol N Headaches N Fibromyalgia N Kidney Disease N Heart Problems N Kidney or Bladder Problems N Thyroid Problems Y GI Problems N Eating Disorder N Anemia N Art (IVF or FET) N Psychiatric Illness N Ovarian Cancer N Diabetes N Pulmonary (TB, Asthma) N Hepatitis/Liver Disease N No Past Medical History N Eczema N Urinary Tract Infection N Abuse/Domestic Violence N Asthma N Trauma/Violence N Depression/ depression Y Heart Disease N Pre-Eclampsia N Hypertension N Osteoporosis N Thrombophilias N Gynecological History Statement/Question Response Abnormal Pap Y Date of Last Mammogram STIs/STDs Y Was last menstrual period normal N Current Control Method Partner Vas ectomy Are cycles usually normal Y Sexually Active? Y Date of DEXA bone scan Date of Last Pap Smear 02/28/2023 Desired Control Method None LMP Unknown Obstetrics History GPAL:G 5 P 3 0 2 3 Type Value Full Term 3 Spontaneous 2 Living 3 Total 5 Past Encounters Encounter ID Performer Location Encounter Start Date Encounter Closed Date Diagnosis/Indication Diagnosis SNOMED-CT Code Diagnosis ICD10 Code Diagnosis Note [id number] Arnaldo Chowdary MD [place] [address] [address] 09/14/2022 15:27:15 09/17/2022 12:19:13 Contraception care management [id number] Z30.9 this patient is a 27-year-ol d female presents for follow-up from the hospital. She was admitted for vaginal bleeding. She miscarried in the hospital where she passed some large clots. She was thought to maybe have twins. She had a hCG of 100,000 approximat tiffany at the hospital. A subsequent ultrasound showed an empty intrauteri ne cavity. Talked about miscarriag e. Talked about contracept ion. We spent over 20 minutes face-to-fa ce. More than 50% was counseling . We agreed to start the oral contracept ellis pills she was given instructio ns on oral contracept ellis pills she will follow-up as needed. She was given instructio ns on when to start the pills. She is going to return for a urine test here. Missed miscarriage 90139 004 O02.1 [id number] Marisa Martinez [facility] [address] [address] 02/28/2023 10:08:30 02/28/2023 10:42:50 screening [id number] Z36.87 Z3A.15 [id number] Arnaldo Chowdary MD [facility] [address],[place] [address] 02/28/2023 10:08:59 02/28/2023 11:41:44 screening 455623129 Z36.89 Routine an tenatal care 411409765 Z34.90 [id number] [facility] [address],[place] [address] 03/28/2023 10:31:14 03/28/2023 12:08:16 screening 985187134 Z36.3 Z3A.19 [id number] Arnaldo Chowdary MD [facility] [address],[place] [address] 03/28/2023 10:31:56 03/28/2023 12:30:26 Routine care 224821895 Z34.90 Vulvovaginitis 22574243 N76.0 [id number] Arnaldo Chowdary MD [facility] [address],[place] [address] 04/08/2023 16:19:42 04/09/2023 08:56:34 Vomiting of 25364762 O21.9 Dysplasia of cervix 7339 1008 N87.9 colposcopy was performed, she had an aceto-whit e area on the anterior lip of the cervix. It needs follow-up after the . It is consistent with low-grade Dysplasia. [id number] Marisa [facility] [address],[place] [address] 04/24/2023 17:40:43 04/24/2023 18:56:17 Placenta circumvallata 0379411 O43.112 O44.40 Z36.2 Z3A.23 [id number] Arnaldo Chowdary MD [facility] [address],[place] [address] 04/24/2023 17:41:13 04/25/2023 08:44:59 Vaginitis 88879693 N76.0 Urinary symptoms 3329690 08 R39.9 Routine an tenatal care 995099807 Z34.90 [id number] [facility] [address],[place] [address] 05/30/2023 11:33:33 05/30/2023 12:16:37 Small for gestational age fetus 208865309 O36.5930 O43.113 Z3A.28 [id number] Arnaldo Chowdary MD [facility] [address],[place] [address] 05/30/2023 11:33:53 05/30/2023 14:39:45 Routine care 792544726 Z34.90 [id number] [facility] [address],[place] [address] 06/06/2023 10:39:06 06/06/2023 11:12:09 Small for gestational age fetus 446353826 O36.5930 [id number] [facility] [address],[place] [address] 06/13/2023 17:03:43 06/13/2023 17:41:59 Poor growth affecting management 083774932 O36.5930 Z3A.30 [id number] Arnaldo Chowdary MD [facility] [address],[place] [address] 06/20/2023 09:43:47 06/20/2023 11:38:00 Routine care 998385136 Z34.90 [id number] [facility] [address],[place] [address] 06/20/2023 09:44:15 06/20/2023 10:33:47 Poor growth affecting management 197766339 O36.5930 Z3A.31 [id number] Мария [facility] [address],[place] [address] 06/20/2023 11:26:26 06/20/2023 11:59:18 growth restriction 98306887 O36.5999 [id number] Arnaldo Chowdary MD [facility] [address],[place] [address] 06/27/2023 13:14:30 06/27/2023 16:10:53 Routine care 913097121 Z34.90 [id number] Marisa Martinez [facility] [address],[place] [address] 06/27/2023 13:12:15 06/27/2023 14:13:25 Poor growth affecting management 219106317 O36.5930 Z3A.32 [id number] [facility] [address],[place] [address] 06/27/2023 13:13:38 06/27/2023 14:51:46 Poor growth affecting management 591774456 O36.5930 Z3A.32 [id number] [facility] [address],[place] [address] 07/04/2023 11:45:57 07/04/2023 12:38:08 Small for gestational age fetus 875808534 O36.5930 [id number] [facility] [address],[place] [address] 07/04/2023 11:46:19 07/04/2023 12:51:08 Small for gestational age fetus 874207077 O36.5930 Z3A.33 [id number] Arnaldo Chowdary MD [facility] [address],[place] [address] 07/04/2023 11:46:35 07/04/2023 15:37:55 Gastroesophageal reflux disease 676631656 K21.9 Routine an tenatal care 981404890 Z34.90 [id number] [facility] [address],[place] [address] 07/11/2023 10:35:22 07/11/2023 11:29:01 Small for gestational age fetus 974974784 O36.5930 Z3A.34 [id number] [facility] [address],[place] [address] 07/11/2023 10:35:47 07/11/2023 12:31:11 Small for gestational age fetus 399988643 O36.5930 Z3A.34 [id number] Arnaldo Chowdary MD [facility] [address],[place] [address] 07/11/2023 10:37:09 07/11/2023 13:07:32 Routine care 443055793 Z34.90 [id number] [facility] [address],[place] [address] 07/18/2023 12:14:46 07/18/2023 13:12:03 Small for gestational age fetus 724626343 O36.5930 Z3A.35 [id number] Arnaldo Chowdary MD [facility] [address],[place] [address] 07/18/2023 12:15:08 07/18/2023 14:24:39 Routine care 015699371 Z34.90 [id number] Arnaldo Chowdary MD [facility] [address],[place] [address] 07/18/2023 12:21:20 07/18/2023 20:35:08 Small for gestational age fetus 542310673 O36.5930 Z3A.35 [id number] [facility] [address],[place] [address] 07/25/2023 10:54:15 07/25/2023 12:21:01 Small for gestational age fetus 747959670 O36.5930 Z3A.36 [id number] [facility] [address],[place] [address] 07/25/2023 10:54:42 07/25/2023 11:50:40 Small for gestational age fetus 416337513 O36.5930 Z3A.36 [id number] Arnaldo Chowdary MD [facility] [address],[place] [address] 07/25/2023 10:55:03 07/25/2023 21:52:08 [id number] [facility] [address],[place] [address] 08/01/2023 11:18:18 08/01/2023 13:26:18 Small for gestational age fetus 656740831 O36.5930 Z3A.37 [id number] Мария Vincent [facility] [address],[place] [address] 08/01/2023 11:18:37 08/01/2023 12:24:39 Small for gestational age fetus 695114733 O36.5930 Z3A.36 [id number] Arnaldo Chowdary MD [facility] [address],[place] [address] 08/01/2023 11:18:54 08/01/2023 12:54:03 Routine care 306845683 Z34.90 [id number] Marian Abdi [facility] [address],[place] [address] 10/23/2023 16:09:44 10/23/2023 16:45:30 Irregular periods 67759263 N92.6 if labs and us are normal, rec colposcopy to evaluate bleeding Yeast detected 840419286 R89.5 baby has thrush will treat care 00825838 8 Z39.2 [id number] Marisa [facility] [address],[place] [address] 10/24/2023 14:23:23 10/24/2023 15:04:36 Irregular periods 94248673 N92.6 [id number] Arnaldo Chowdary MD [facility] [address],[place] [address] 11/16/2023 10:58:01 11/19/2023 11:00:05 Abnormal uterine bleeding 0187964535 9100 N93.9 This patient is a 28-year-ol d female with abnormal uterine bleeding. She has had irregular bleeding since the of her child. It has been several months since the . She would like to control her menses. Talked about varying ways of doing that. She is breastfeed ing. We agreed to progestero ne only control pills. Patient also reports stress incontinen ce and is known to have thyroid disorder. She may have Jeramie' s thyroiditi s. She has high antibody titers for the antithyroi d antibodies . She needs to be evaluated by endocrinol ogy and urogynecol ogy. Spent over 20 minutes on the patient's care in total. Talked about these 3 complex problems. Gynecologi c examination 20006823 Z01.[address]11[address]51 Female str ess incontinence 69094329 N39.3 Disorder o f thyroid gland 29370278 E07.9 Health Concerns Section Related Observation LastModified by Organization Detai ls LastModified Time None Recorded Concern Status LastModified by Organization Details LastModified Time None Recorded Advance Directives Directive None Recorded Payers Encounter Date Sequence Insurance Name Policy Number Policy Coker Covered Member ID Coker Member ID Guarantor Name 08/01/2023 1 [facility] (MEDICAID HMO) [id number] Lacy Tulio [id number] Lacy Tulio 08/01/2023 1 [facility] (MEDICAID HMO) [id number] Lacy Tulio [id number] Lacy [place] 10/23/2023 1 [facility] (MEDICAID HMO) [id number] Lacy [place] [id number] Lacy Tulio 10/24/2023 1 [facility] (MEDICAID HMO) [id number] Lacy Tulio [id number] Lacy [place] 11/16/2023 1 [facility] (MEDICAID HMO) [id number] Lacy [place] [id number] Lacy Tulio Notes Date Note Type Note Provider Name and Address Organization Details Recorded Time 10/23/2023 text/html VisitReported bypatient.Quality:N Context:complicatio ns of : IUGR; complications of labor: none; laceration: ; complications: none; feeding choice: breast; good support from partner/family; resumed menstrual bleeding yes Associated Symptoms:abnormal bleeding Contraception Plan:permanent sterilizationNotes: partner has vasectomy, irregular bleeding since period at the end of july Marian wong [facility] 10/23/2023 17:01:43 11/16/2023 text/html This patient is a 28-year-old female with abnormal uterine bleeding. She has had irregular bleeding since the of her child. It has been several months since the . She would like to control her menses. Talked about varying ways of doing that. She is . We agreed to progesterone only control pills. Patient also reports stress incontinence and is known to have thyroid disorder. She may have Jeramie's thyroiditis. She has high antibody titers for the antithyroid antibodies. She needs to be evaluated by endocrinology and urogynecology. Spent over 20 minutes on the patient's care in total. Talked about these 3 complex problems. Arnaldo Chowdary MD [address], [place], [address], [place] [facility] 11/18/2023 21:56:35 OBGyn Episode Ob Episode Information Episode Created Date Number of Fetuses Patient Bloodtype Patient rh Status Prepregnancy Weight lbs Domestic Partner Domestic Partner Phone Father Name Chemist Assistant Status 09/15/19 23 1 CLOSED Fetus Data First Name Last Name Admitted to NICU Weight (g) Sex Living Outcome Pediatric Complications Fetus ID Race Codes Race Delivery Type , Spontane ous [id number] Shaka Calculation Initial Shaka Date Initial Exam Date Initial Exam Provider Initial Ultrasound Date Last Menstrual Period Date Ultra Sound Weeks Gestation 0 Eighteen To Twenty Week Shaka Update Ultra Sound Date Fundal Height At Umbil Quickening Date Ultra Sound Latest Weeks Gestation Final Shaka Confirmed By Final Shaka Confirmed Date Final Shaka Date Ultra Sound Latest Days Gestation 0 0 Menstrual History Last Menstrual Date Menses Monthly On Bcp Conception Prior Menses Frequency Hcg Plus Date Menarche Onset Age Delivery Information Delivery Date Delivery Type Labor Anesthesia Weeks Gestation Incision Type Labor Labor Length Hrs Delivered By Post Complications Tubal Sterilization Discharge Date Comments 3 Discharge Information Feeding Method Contraceptive Method Maternal HG B and HCT Levels Ob Episode Information Episode Created Date Number of Fetuses Patient Bloodtype Patient rh Status Prepregnancy Weight lbs Domestic Partner Domestic Partner Phone Father Name Chemist Assistant Status 02/28/19 24 1 O Positive CLOSED Fetus Data First Name Last Name Admitted to NICU Weight (g) Sex Living Outcome Pediatric Complications Fetus ID Race Codes Race Delivery Type 2579.80 45 F true Full Term [id number] Vaginal Delivery Problems Problem Notes Pelvic pain , HISTORY OF SMA LL FOR GESTATIONAL AGE- BPP AND DOPPLERS Problem Name Start Date End Date Resolution Snomed Code Not e Low lying placenta 04/24/2023 [id number] 1.5cm to os resolved Abnormal cervical Papanicolaou smear 461776685 NEEDS COL POSCOPY AFTER - abnormal colpo at 20 weeks Placenta circumvallata 0461169 serial growth Hypoglycemia 582598985 episodi c hypoglycemia symptoms diaphoresis, tremorous, panic Past history of small for gestational age baby [id number] Shaka Calculation Initial Shaka Date Initial Exam Date Initial Exam Provider Initial Ultrasound Date Last Menstrual Period Date Ultra Sound Weeks Gestation 08/17/2023 02/28/2023 02/28/2023 15 Eighteen To Twenty Week Shaka Update Ultra Sound Date Fundal Height At Umbil Quickening Date Ultra Sound Latest Weeks Gestation Final Shaka Confirmed By Final Shaka Confirmed Date Final Shaka Date Ultra Sound Latest Days Gestation 0 [email or web address] 02/28/2023 08/17/19 24 0 Pre-cindy Flowsheet Flowsheet Date 02/28/2023 Parrish Score Blood Edema Fundus Height Fundus Units Glucose Ketones Leukocytes Nitrite Labor Signs Protein Cervic Dilation Cervic Effacement Cervic Station 16 Type Weight in lbs Pre/Post Dialysis Refused Weight 158.796952446977 BP Diastolic BP Location Tested BP Systolic BP Type 69 R arm 102 sitting Fetus Heart Rate Present A 151 Fetus Movement Comments patient is a 28-year-old gra bradley 5 para 2021 at 15 weeks' gestation who presents for initial care. She reports low pelvic pain. Her cervix is closed today. Pap smear was performed. Ultrasound was normal. Her urine is normal. She will continue to observe. Given recommendations. She is unvaccinated but has been exposed to COVID. She was given other vaccine recommendations. She is going to get alpha fetoprotein testing today along with lap testing. She has an unremarkable obstetric history. She will begin routine care. Flowsheet Date 03/28/2023 Parrish Score Blood Edema Fundus Height Fundus Units Glucose Ketones Leukocytes Nitrite Labor Signs Protein Cervic Dilation Cervic Effacement Cervic Station Type Weight in lbs Pre/Post Dialysis Refused BP Diastolic BP Location Tested BP Systolic BP Type Fetus Heart Rate Present Fetus Movement Comments Flowsheet Date 03/28/2023 Parrish Score Blood Edema Fundus Height Fundus Units Glucose Ketones Leukocytes Nitrite Labor Signs Protein Cervic Dilation Cervic Effacement Cervic Station Type Weight in lbs Pre/Post Dialysis Refused Weight 161.673012156789 BP Diastolic BP Location Tested BP Systolic BP Type 70 L arm 104 sitting Fetus Heart Rate Present A 145 Fetus Movement Comments vulvovaginitis - examined an d and cultured, to treat with prolonged yeast Tx. discussed episodes of diaphoresis, shakes and panic. Appears to be a low blood sugar issue. Talked about low blood pressure and low blood sugars. Flowsheet Date 04/08/2023 Parrish Score Blood Edema Fundus Height Fundus Units Glucose Ketones Leukocytes Nitrite Labor Signs Protein Cervic Dilation Cervic Effacement Cervic Station Type Weight in lbs Pre/Post Dialysis Refused Weight 158.764868741582 BP Diastolic BP Location Tested BP Systolic BP Type 69 L arm 101 sitting Fetus Heart Rate Present Fetus Movement Comments Flowsheet Date 04/24/2023 Parrish Score Blood Edema Fundus Height Fundus Units Glucose Ketones Leukocytes Nitrite Labor Signs Protein Cervic Dilation Cervic Effacement Cervic Station Type Weight in lbs Pre/Post Dialysis Refused BP Diastolic BP Location Tested BP Systolic BP Type Fetus Heart Rate Present Fetus Movement Comments Flowsheet Date 04/24/2023 Parrish Score Blood Edema Fundus Height Fundus Units Glucose Ketones Leukocytes Nitrite Labor Signs Protein Cervic Dilation Cervic Effacement Cervic Station neg none 24 none trace Type Weight in lbs Pre/Post Dialysis Refused Weight 159.471551573101 BP Diastolic BP Location Tested BP Systolic BP Type 67 99 Fetus Heart Rate Present A 145 Fetus Movement A Yes Comments Patient c/o possible yeast i nfection - txed, Treating nausea, admitted for nausea and vomiting, got fluids and antiemetics. Has a plan for hypoglycemia and hypovolemia. Normal growth ultrasound today, to continue serial gr Flowsheet Date 05/30/2023 Parrish Score Blood Edema Fundus Height Fundus Units Glucose Ketones Leukocytes Nitrite Labor Signs Protein Cervic Dilation Cervic Effacement Cervic Station Type Weight in lbs Pre/Post Dialysis Refused BP Diastolic BP Location Tested BP Systolic BP Type Fetus Heart Rate Present Fetus Movement Comments Flowsheet Date 05/30/2023 Parrish Score Blood Edema Fundus Height Fundus Units Glucose Ketones Leukocytes Nitrite Labor Signs Protein Cervic Dilation Cervic Effacement Cervic Station neg none none trace Type Weight in lbs Pre/Post Dialysis Refused Weight 165.854655169443 BP Diastolic BP Location Tested BP Systolic BP Type 73 110 Fetus Heart Rate Present A 145 Fetus Movement A Yes Comments reports pelvic pressure and feeling the baby very low, digital cervical exam reveals a thick cervix. Speculum exam shows a closed cervix. Head is ballotable, not engaged, floating away easily. Small for gestational age, abdominal circumference 8th percentile to repeat ultrasound for growth in 3 weeks. Dopplers q.week. Flowsheet Date 06/06/2023 Parrish Score Blood Edema Fundus Height Fundus Units Glucose Ketones Leukocytes Nitrite Labor Signs Protein Cervic Dilation Cervic Effacement Cervic Station Type Weight in lbs Pre/Post Dialysis Refused BP Diastolic BP Location Tested BP Systolic BP Type Fetus Heart Rate Present Fetus Movement Comments Flowsheet Date 06/13/2023 Parrish Score Blood Edema Fundus Height Fundus Units Glucose Ketones Leukocytes Nitrite Labor Signs Protein Cervic Dilation Cervic Effacement Cervic Station Type Weight in lbs Pre/Post Dialysis Refused BP Diastolic BP Location Tested BP Systolic BP Type Fetus Heart Rate Present Fetus Movement Comments Flowsheet Date 06/20/2023 Parrish Score Blood Edema Fundus Height Fundus Units Glucose Ketones Leukocytes Nitrite Labor Signs Protein Cervic Dilation Cervic Effacement Cervic Station Type Weight in lbs Pre/Post Dialysis Refused BP Diastolic BP Location Tested BP Systolic BP Type Fetus Heart Rate Present Fetus Movement Comments Flowsheet Date 06/20/2023 Parrish Score Blood Edema Fundus Height Fundus Units Glucose Ketones Leukocytes Nitrite Labor Signs Protein Cervic Dilation Cervic Effacement Cervic Station neg trace none neg Type Weight in lbs Pre/Post Dialysis Refused Weight 168.686926048612 BP Diastolic BP Location Tested BP Systolic BP Type 76 L arm 110 sitting Fetus Heart Rate Present Fetus Movement A Yes Comments 08/02 BPP, NST to follow, lopez ges in ST ratio, strict follow-up with NST on Saturday. Good growth ultrasound today, growth is normal. Flowsheet Date 06/20/2023 Parrish Score Blood Edema Fundus Height Fundus Units Glucose Ketones Leukocytes Nitrite Labor Signs Protein Cervic Dilation Cervic Effacement Cervic Station Type Weight in lbs Pre/Post Dialysis Refused BP Diastolic BP Location Tested BP Systolic BP Type Fetus Heart Rate Present Fetus Movement Comments Flowsheet Date 06/27/2023 Parrish Score Blood Edema Fundus Height Fundus Units Glucose Ketones Leukocytes Nitrite Labor Signs Protein Cervic Dilation Cervic Effacement Cervic Station Type Weight in lbs Pre/Post Dialysis Refused BP Diastolic BP Location Tested BP Systolic BP Type Fetus Heart Rate Present Fetus Movement Comments Flowsheet Date 06/27/2023 Parrish Score Blood Edema Fundus Height Fundus Units Glucose Ketones Leukocytes Nitrite Labor Signs Protein Cervic Dilation Cervic Effacement Cervic Station Type Weight in lbs Pre/Post Dialysis Refused BP Diastolic BP Location Tested BP Systolic BP Type Fetus Heart Rate Present Fetus Movement Comments Flowsheet Date 06/27/2023 Parrish Score Blood Edema Fundus Height Fundus Units Glucose Ketones Leukocytes Nitrite Labor Signs Protein Cervic Dilation Cervic Effacement Cervic Station neg none none trace Type Weight in lbs Pre/Post Dialysis Refused Weight 167.549809632563 BP Diastolic BP Location Tested BP Systolic BP Type 71 L arm 105 sitting Fetus Heart Rate Present A 143 Fetus Movement A Yes Comments Patient c/o of sharp pain in lower abdomen and back that are constant and c/o of barley getting any rest due to it given recommendations on back pain. Flowsheet Date 07/04/2023 Parrish Score Blood Edema Fundus Height Fundus Units Glucose Ketones Leukocytes Nitrite Labor Signs Protein Cervic Dilation Cervic Effacement Cervic Station Type Weight in lbs Pre/Post Dialysis Refused BP Diastolic BP Location Tested BP Systolic BP Type Fetus Heart Rate Present Fetus Movement Comments Flowsheet Date 07/04/2023 Parrish Score Blood Edema Fundus Height Fundus Units Glucose Ketones Leukocytes Nitrite Labor Signs Protein Cervic Dilation Cervic Effacement Cervic Station Type Weight in lbs Pre/Post Dialysis Refused BP Diastolic BP Location Tested BP Systolic BP Type Fetus Heart Rate Present Fetus Movement Comments Flowsheet Date 07/04/2023 Parrish Score Blood Edema Fundus Height Fundus Units Glucose Ketones Leukocytes Nitrite Labor Signs Protein Cervic Dilation Cervic Effacement Cervic Station neg trace none neg Type Weight in lbs Pre/Post Dialysis Refused Weight 170.400212707379 BP Diastolic BP Location Tested BP Systolic BP Type 69 L arm 101 sitting Fetus Heart Rate Present A 145 Fetus Movement A Yes Comments Patient c/o of swelling in h ands, legs and feet normal testing, pelvic pressure, check cervical last week, baby's head is low. Flowsheet Date 07/11/2023 Parrish Score Blood Edema Fundus Height Fundus Units Glucose Ketones Leukocytes Nitrite Labor Signs Protein Cervic Dilation Cervic Effacement Cervic Station Type Weight in lbs Pre/Post Dialysis Refused BP Diastolic BP Location Tested BP Systolic BP Type Fetus Heart Rate Present Fetus Movement Comments Flowsheet Date 07/11/2023 Parrish Score Blood Edema Fundus Height Fundus Units Glucose Ketones Leukocytes Nitrite Labor Signs Protein Cervic Dilation Cervic Effacement Cervic Station Type Weight in lbs Pre/Post Dialysis Refused BP Diastolic BP Location Tested BP Systolic BP Type Fetus Heart Rate Present Fetus Movement Comments Flowsheet Date 07/11/2023 Parrish Score Blood Edema Fundus Height Fundus Units Glucose Ketones Leukocytes Nitrite Labor Signs Protein Cervic Dilation Cervic Effacement Cervic Station neg none 34 none trace Type Weight in lbs Pre/Post Dialysis Refused Weight 175.950125170755 BP Diastolic BP Location Tested BP Systolic BP Type 73 L arm 121 sitting Fetus Heart Rate Present A 145 Fetus Movement A Yes Comments Patient c/o of a lot of pres sure and cramping. States it's hard to move or do anything. some urinary incontinence Flowsheet Date 07/18/2023 Parrish Score Blood Edema Fundus Height Fundus Units Glucose Ketones Leukocytes Nitrite Labor Signs Protein Cervic Dilation Cervic Effacement Cervic Station Type Weight in lbs Pre/Post Dialysis Refused BP Diastolic BP Location Tested BP Systolic BP Type Fetus Heart Rate Present Fetus Movement Comments Flowsheet Date 07/18/2023 Parrish Score Blood Edema Fundus Height Fundus Units Glucose Ketones Leukocytes Nitrite Labor Signs Protein Cervic Dilation Cervic Effacement Cervic Station neg trace none trace Type Weight in lbs Pre/Post Dialysis Refused Weight 174.28297668483 BP Diastolic BP Location Tested BP Systolic BP Type 72 L arm 109 sitting Fetus Heart Rate Present A 137 Fetus Movement A Yes Comments no complaints, no problems, routine care Flowsheet Date 07/18/2023 Parrish Score Blood Edema Fundus Height Fundus Units Glucose Ketones Leukocytes Nitrite Labor Signs Protein Cervic Dilation Cervic Effacement Cervic Station Type Weight in lbs Pre/Post Dialysis Refused BP Diastolic BP Location Tested BP Systolic BP Type Fetus Heart Rate Present Fetus Movement Comments Flowsheet Date 07/25/2023 Parrish Score Blood Edema Fundus Height Fundus Units Glucose Ketones Leukocytes Nitrite Labor Signs Protein Cervic Dilation Cervic Effacement Cervic Station Type Weight in lbs Pre/Post Dialysis Refused BP Diastolic BP Location Tested BP Systolic BP Type Fetus Heart Rate Present Fetus Movement Comments Flowsheet Date 07/25/2023 Parrish Score Blood Edema Fundus Height Fundus Units Glucose Ketones Leukocytes Nitrite Labor Signs Protein Cervic Dilation Cervic Effacement Cervic Station Type Weight in lbs Pre/Post Dialysis Refused BP Diastolic BP Location Tested BP Systolic BP Type Fetus Heart Rate Present Fetus Movement Comments Flowsheet Date 07/25/2023 Parrish Score Blood Edema Fundus Height Fundus Units Glucose Ketones Leukocytes Nitrite Labor Signs Protein Cervic Dilation Cervic Effacement Cervic Station neg none none trace Type Weight in lbs Pre/Post Dialysis Refused Weight 172.652446818536 BP Diastolic BP Location Tested BP Systolic BP Type 72 L arm 105 sitting Fetus Heart Rate Present Fetus Movement A Yes Comments Patient c/o of slight nausea and vomiting, along with soreness Flowsheet Date 08/01/2023 Parrish Score Blood Edema Fundus Height Fundus Units Glucose Ketones Leukocytes Nitrite Labor Signs Protein Cervic Dilation Cervic Effacement Cervic Station Type Weight in lbs Pre/Post Dialysis Refused BP Diastolic BP Location Tested BP Systolic BP Type Fetus Heart Rate Present Fetus Movement Comments Flowsheet Date 08/01/2023 Parrish Score Blood Edema Fundus Height Fundus Units Glucose Ketones Leukocytes Nitrite Labor Signs Protein Cervic Dilation Cervic Effacement Cervic Station Type Weight in lbs Pre/Post Dialysis Refused BP Diastolic BP Location Tested BP Systolic BP Type Fetus Heart Rate Present Fetus Movement Comments Flowsheet Date 08/01/2023 Parrish Score Blood Edema Fundus Height Fundus Units Glucose Ketones Leukocytes Nitrite Labor Signs Protein Cervic Dilation Cervic Effacement Cervic Station neg trace none trace Type Weight in lbs Pre/Post Dialysis Refused Weight 174.85956050781 BP Diastolic BP Location Tested BP Systolic BP Type 74 L arm 111 sitting Fetus Heart Rate Present A 145 Fetus Movement A Yes Comments Patient c/o of slight swelli ng in feet, along with some pains, intermittently bart. Good movement, no loss of fluid, no vaginal bleeding , reassuring testing. Menstrual History Last Menstrual Date Menses Monthly On Bcp Conception Prior Menses Frequency Hcg Plus Date Menarche Onset Age Genetic Screening And Infection History Question Response Note Mental Retardation/Autism false Patient's Age Will Be 35 Years Or Older At Estim ated Date of Delivery false Thalassemia (Liberian, Yoruba, Mediterranean, Or Background): MCV < 80 false Neural Tube Defect (Meningomyelocele, Spina Bifi da, Or Anencephaly) false Congenital Heart Defect false Down Syndrome false Farzad-Sachs (eg, Holiness, Cajun, Qatari-Leake) f alse Carina Disease false Sickle Cell Disease Or Trait () false Hemophilia Or Other Blood Disorders false Muscular Dystrophy false Cystic Fibrosis false Briscoe's Chorea false Intellectual Disability/Autism false If Yes, Was Person Tested For Fragile X? false Other Inherited Genetic Or Chromosomal Disorder false Maternal Metabolic Disorder (eg, Type 1 Diabetes , PKU) false Patient Or Baby's Father Had A Child With Defects Not Listed Above false Recurrent Loss, Or A Stillbirth false Medications (including Suppl ements, Vitamins, Herbs, OTC Drugs), Illicit/Recreational Drugs, Alcohol false If Yes, Agent(s) And Strength/Dosage false Any Other Genetic History false Live With Someone With TB Or Exposed To TB false Patient Or Partner Has History Of Genital Herpes false Rash Or Viral Illness Since Last Menstrual Perio d false History Of STD, Gonorrhea, Chlamydia, HPV, Syphi lis false Other Infection History false History of HIV false History of Hepatitis false Prior GBS-infected child false Hemoglobinopathy Or Carrier false Other Structural Defect false Recent Travel History Outside of Country false Delivery Information Delivery Date Delivery Type Labor Anesthesia Weeks Gestation Incision Type Labor Labor Length Hrs Delivered By Post Complications Tubal Sterilization Discharge Date Comments 4 Induce d Regional-Ep idural 38.2 false Betty Aguilar CNAshanti Abnormal cervical Papanicol aou smear,Hyp oglycemia ,Low lying placenta, Past history of small for gestation al age baby,Plac enta circumval parag Discharge Information Feeding Method Contraceptive Method Maternal HG B and HCT Levels Ob Episode Information Episode Created Date Number of Fetuses Patient Bloodtype Patient rh Status Prepregnancy Weight lbs Domestic Partner Domestic Partner Phone Father Name Chemist Assistant Status 09/15/19 23 1 CLOSED Fetus Data First Name Last Name Admitted to NICU Weight (g) Sex Living Outcome Pediatric Complications Fetus ID Race Codes Race Delivery Type , Spontane ous [id number] Shaka Calculation Initial Shaka Date Initial Exam Date Initial Exam Provider Initial Ultrasound Date Last Menstrual Period Date Ultra Sound Weeks Gestation 0 Eighteen To Twenty Week Shaka Update Ultra Sound Date Fundal Height At Umbil Quickening Date Ultra Sound Latest Weeks Gestation Final Shaka Confirmed By Final Shaka Confirmed Date Final Shaka Date Ultra Sound Latest Days Gestation 0 0 Menstrual History Last Menstrual Date Menses Monthly On Bcp Conception Prior Menses Frequency Hcg Plus Date Menarche Onset Age Delivery Information Delivery Date Delivery Type Labor Anesthesia Weeks Gestation Incision Type Labor Labor Length Hrs Delivered By Post Complications Tubal Sterilization Discharge Date Comments 8 Discharge Information Feeding Method Contraceptive Method Maternal HG B and HCT Levels Ob Episode Information Episode Created Date Number of Fetuses Patient Bloodtype Patient rh Status Prepregnancy Weight lbs Domestic Partner Domestic Partner Phone Father Name Chemist Assistant Status 09/15/19 23 1 CLOSED Fetus Data First Name Last Name Admitted to NICU Weight (g) Sex Living Outcome Pediatric Complications Fetus ID Race Codes Race Delivery Type 3345.24 1 Full Term [id number] Vaginal Delivery Shaka Calculation Initial Shaka Date Initial Exam Date Initial Exam Provider Initial Ultrasound Date Last Menstrual Period Date Ultra Sound Weeks Gestation 0 Eighteen To Twenty Week Shaka Update Ultra Sound Date Fundal Height At Umbil Quickening Date Ultra Sound Latest Weeks Gestation Final Shaka Confirmed By Final Shaka Confirmed Date Final Shaka Date Ultra Sound Latest Days Gestation 0 0 Menstrual History Last Menstrual Date Menses Monthly On Bcp Conception Prior Menses Frequency Hcg Plus Date Menarche Onset Age Delivery Information Delivery Date Delivery Type Labor Anesthesia Weeks Gestation Incision Type Labor Labor Length Hrs Delivered By Post Complications Tubal Sterilization Discharge Date Comments 0 Discharge Information Feeding Method Contraceptive Method Maternal HG B and HCT Levels Ob Episode Information Episode Created Date Number of Fetuses Patient Bloodtype Patient rh Status Prepregnancy Weight lbs Domestic Partner Domestic Partner Phone Father Name Chemist Assistant Status 09/15/19 23 1 CLOSED Fetus Data First Name Last Name Admitted to NICU Weight (g) Sex Living Outcome Pediatric Complications Fetus ID Race Codes Race Delivery Type 3486.76 1704 M Full Term [id number] Vaginal Delivery Shaka Calculation Initial Shaka Date Initial Exam Date Initial Exam Provider Initial Ultrasound Date Last Menstrual Period Date Ultra Sound Weeks Gestation 0 Eighteen To Twenty Week Shaka Update Ultra Sound Date Fundal Height At Umbil Quickening Date Ultra Sound Latest Weeks Gestation Final Shaka Confirmed By Final Shaka Confirmed Date Final Shaka Date Ultra Sound Latest Days Gestation 0 0 Menstrual History Last Menstrual Date Menses Monthly On Bcp Conception Prior Menses Frequency Hcg Plus Date Menarche Onset Age Delivery Information Delivery Date Delivery Type Labor Anesthesia Weeks Gestation Incision Type Labor Labor Length Hrs Delivered By Post Complications Tubal Sterilization Discharge Date Comments 6 39.3 Lyam Discharge Information Feeding Method Contraceptive Method Maternal HG B and HCT Levels
--- OUTSIDE RECORDS SUMMARY | 2024-05-21 09:34 | XMS_ITS | Encounter Summary ---
Author Organization [facility] Address [address] [place] [address] Care Team Providers Care Hand Collator Name Role Phone Unavailable Primary Care Provider Unavailabl e Prior Encounters Date Type Department Care Team Description 08/03/2020 Orders Only [facility] [address] [place] [address] Yolanda Fisher DMD 08/03/2020 Travel 08/03/2020 2:00 PM CDT Office Visit [facility] [address] [place] [address] Yolanda Fisher, DMD Last Filed Vital Signs Vital Sign Reading Time Taken Comments Blood Pressure 107/70 08/03/2020 2:14 PM CDT Pulse 78 08/03/2020 2:14 PM CDT Temperature - - Respiratory Rate - - Oxygen Saturation - - Inhaled Oxygen Concentration - - Weight - - Height - - Body Mass Index - - Plan of Treatment Not on file Procedures Procedure Name Priority Date/Time Associated Diagnosis Comments PANORAMIC RADIOGRAPHIC IMAGE Routine 08/03/2020 2:00 PM CDT BITEWING - SINGLE RADIOGRAPHIC IMAGE Routine 08/03/2020 2:00 PM CDT ADDITIONAL X-RAY Routine 08/03/2020 2:00 PM CDT SINGLE X-RAY Routine 08/03/2020 2:00 PM CDT LIMITED ORAL EVALUATION - PROBLEM FOCUSED Routine 08/03/2020 2:00 PM CDT Visit Diagnoses Not on file
--- OUTSIDE RECORDS SUMMARY | 2024-05-21 10:22 | XMS_ITS | Clinical Summary ---
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
--- OUTSIDE RECORDS SUMMARY | 2024-05-21 10:22 | XMS_ITS | Clinical Summary ---
Author Organization [facility] Address [address] [place] [address] Care Team Providers Care Cook Vacuum Kettle Name Role Phone Unavailable Primary Care Provider Unavailabl e Source Comments [facility],non-owned Affiliates and Associated Physician Practices is amultiple site organization consisting of ambulatory clinics and hospital sitesin [place], [place], [place] and [place]. This disclosure is being madepursuant to the Care Everywhere program and may not contain all information available regarding this patient. Last updated 17.[facility] Allergies No known active allergies Active Problems [...] Comments Blood Pressure 130/62 02/17/2016 12:45 AM RUFFLING MACHINE OPERATOR Pulse 84 02/17/2016 12:45 AM RUFFLING MACHINE OPERATOR Temperature 36.8 C (98.2 F) 02/16/2016 7:53 PM RUFFLING MACHINE OPERATOR Respiratory Rate 12 02/17/2016 12:45 AM RUFFLING MACHINE OPERATOR Oxygen Saturation 96% 02/17/2016 12:45 AM RUFFLING MACHINE OPERATOR Inhaled Oxygen Concentration - - Weight 61.2 kg (135 lb) 02/16/2016 7:53 PM RUFFLING MACHINE OPERATOR Height 167.6 cm (5' 6 ) 02/16/2016 7:53 PM RUFFLING MACHINE OPERATOR Body Mass Index 21.79 02/16/2016 7:53 PM RUFFLING MACHINE OPERATOR Plan of Treatment Health Maintenance Due Date [...] complete this topic TULIO,POONAM Personal/Family [address] [place] [address] TULIOPOONAM Personal/Family [address] [place] [address] Tulio Matthewzurdo Mcconnell Personal/Family Self [address] [place] [address]
--- OUTSIDE RECORDS SUMMARY | 2024-05-21 10:22 | XMS_ITS | Encounter Summary ---
Author Organization [facility] Address [address] [place] [address] Care Team Providers Care Whitewater Rafting Guide Name Role Phone Miscellaneous, Not In File Unavailable Unava ilable Unknown, Notinfile Primary Care Provider Unavail able Encounter Details Date Type Department Care Team (Late st Contact Info) Description 03/16/2024 Telephone [facility] Medical Group Primary Care at [place] [address] [place] [address] [address] [place] [address] Danielle Soni, ELECTRONIC SENSING EQUIPMENT ASSEMBLER [address] [place] [address] Social History Tobacco Use Types Packs/Day Years Used Date Smoking Tobacco: Never Comments No Sex and Gender Information Value Date Recorded Sex Assigned at Not on file 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
--- OUTSIDE RECORDS SUMMARY | 2024-05-21 10:22 | XMS_ITS | Clinical Summary ---
Author Organization [facility] Address [address] [place] [address] Phone Care Team Providers Care Spanish Translator Name Role Phone Provider, None Primary Care [...] 05/26/2024 2:00 PM CDT [facility] [address] [place] [address] Keily Banks, [facility] [address] [place] [address] Discharge Disposition: Discharged to home or Selfcare Insurance MEDICAID [place] Care Teams Spanish Translator Relationship Specialty Start Date End Date Provider, None [place] PCP - General 07/30/23
--- OUTSIDE RECORDS SUMMARY | 2024-05-21 10:22 | XMS_ITS | Referral Summary ---
Author Organization 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
[2024-05-21 11:00] VITALS: BP 108/53; PULSE 74; RESP 16; O2SAT 100
== END 2024-05-21 11:49 | disposition home or self-care (01) ==
PROVIDERS: Emergency Provider Physician Assistant; PCP Family Medicine
DX: J35.2 Hypertrophy of adenoids (principal); D68.00 Von Willebrand disease, unspecified; E89.0 Postprocedural hypothyroidism; Z90.49 Acquired absence of other specified parts of digestive tract
CPT/HCPCS: 70490; 99284